=== PATIENT | female | born 1940 | race Caucasian/White ===

== ENCOUNTER 2016-11-25 06:14 | Observation (INO) ==
[2016-11-25] MEDS ORDERED: 0.9 % Sodium Chloride 1,000 ML IVC ONE ×2 (06:25→08:09)
[2016-11-25] MEDS ORDERED: Ondansetron 4 MG/2 ML VIAL IVP ONE (06:25)
[2016-11-25] MEDS ORDERED: *HR* HYDROmorphone (PF) 1 MG/ML SYRINGE IVP ONE (06:25)
--- NOTE | 2016-11-25 06:36 | Emergency Department Note ---
Disposition Clinical Impression: Right lower quadrant abdominal pain Disposition: Still a Patient Condition: Fair Referrals: Lanny Rogers, [employer] CL[employer] MANAGER [Primary Care Provider] - Forms: ED Satisfaction Letter, Work/School Release Abdominal Pain HPI - General Chief Complaint: ED Abdominal Pain Stated Complaint: abd pain Source: patient, EMS Mode of arrival: EMS Limitations: no limitations Nursing Notes Reviewed: Yes Vital Signs Reviewed: Yes - History of Present Illness HPI Narrative: 76-year-old female presents to the ED for acute severe right lower quadrant abdominal pain that began at around 4 AM. Onset was sudden and woke patient from sleep. Pain radiates into the back and has developed into a generalized abdominal pain. Is associated with nausea and dry heaves. No recent fever, no stool abnormalities including grossly bloody stool, melanoma, diarrhea. Patient states felt every bump on ambulance ride to ED. Denies dysuria, hematuria, chest pain, palpitations, SOA, or syncope. Surgical history negative for appendectomy. No history of renal stones. Pain Scale: 10 - Related Data Home Medications Medication Instructions Recorded Confirmed Aspirin 81 mg PO DAILY 12/19/15 12/19/15 Calcium Carbonate/Vitamin D3 1 tab PO DAILY 12/19/15 12/19/15 [Calcium 600-Vit D3 200 Tablet] Escitalopram [Lexapro] 10 mg PO DAILY 12/19/15 12/19/15 LORazepam [Ativan] 0.5 mg PO HS 12/19/15 12/19/15 Levothyroxine [Synthroid] 75 mcg PO DAILY 12/19/15 12/19/15 Lisinopril 2.5 mg PO DAILY 12/19/15 12/19/15 Metoprolol XL (24 HR) Succ [Toprol 50 mg PO DAILY 12/19/15 12/19/15 XL] Multivitamin [Multi-Day Vitamins] 1 tab PO DAILY 12/19/15 12/19/15 Ranitidine HCl [Acid Poultice Machine Operator] 150 mg PO DAILY 12/19/15 12/19/15 Ursodiol 300 mg PO TID 12/19/15 12/19/15 Allergies Allergy/AdvReac Type Severity Reaction Status Date / Time meperidine [From Demerol] Allergy Hallucinati Verified 11/22/14 10:59 ng acetaminophen [From Vicodin] AdvReac See Verified 11/22/14 10:59 Comments Amoxicillin [From Augmentin] AdvReac See Verified 11/22/14 10:59 Comments azithromycin AdvReac See Verified 11/22/14 10:59 Comments clavulanic acid AdvReac See Verified 11/22/14 10:59 [From Augmentin] Comments codeine AdvReac See Verified 11/22/14 10:59 Comments hydrocodone [From Vicodin] AdvReac See Verified 11/22/14 10:59 Comments sertraline [From Zoloft] AdvReac See Verified 11/22/14 10:59 Comments sulfamethoxazole AdvReac See Verified 11/22/14 10:59 [From Bactrim] Comments trimethoprim [From Bactrim] AdvReac See Verified 11/22/14 10:59 Comments All systems ED: reviewed and negative except as stated. Review of Systems: As Per HPI Abdominal Pain PMH - Past Medical History Medical history: Reports: non-contributory, cancer, hypertension, liver disease , thyroid disease Female Surgical History: Reports: hysterectomy, Tonsillectomy Psychiatric history: Reports: no psych history - Social History Smoking status: Former smoker Alcohol use: Reports: rarely Drug use: Reports: none Physical Exam Abdominal exam: grossly normal appearance, postive bowel sounds, generally tender with exquisite RLQ tenderness/guarding, positive rebound tenderness, no rigidity/distension. - General Limitations: no limitations General appearance: alert, in no apparent distress, in distress - Head Head exam: normocephalic - Eye Eye exam: Present: PERRL, EOMI. Absent: scleral icterus, conjunctival injection , miosis, mydriasis - ENT ENT exam: mucous membranes moist - Respiratory Respiratory exam: Present: normal lung sounds bilaterally - Cardiovascular Cardiovascular exam: Present: regular rate, normal rhythm, normal heart sounds - Extremities Exam Extremities exam: Absent: pedal edema - Neurological Exam Neurological exam: Present: alert, oriented X3 - Skin Skin exam: Present: warm, dry, normal color. Absent: cyanosis, diaphoresis, pallor, mottled Course Vital Signs Temperature 98.9 F 11/25/16 06:15 Pulse Rate 83 11/25/16 06:15 Respiratory Rate 16 11/25/16 06:15 Blood Pressure 150/103 11/25/16 06:15 O2 Sat by Pulse Oximetry 92 11/25/16 06:15 Temperature 98.9 F 11/25/16 06:15 Pulse Rate 83 11/25/16 06:15 Respiratory Rate 16 11/25/16 06:15 Blood Pressure 150/103 11/25/16 06:15 O2 Sat by Pulse Oximetry 94 11/25/16 06:21 Oxygen Delivery Oxygen Delivery Room Air Attestation Statement - Attestation Attestation: I, Rene Vee MD, personally evaluated this patient and discussed their management with the resident physician. I reviewed the resident's note and agree with the documented findings, medical decision making, and plan of care. 76-year-old female presents to the emergency department with a complaint that she awoke at 4 AM this morning with severe right lower quadrant abdominal pain. Nausea but no vomiting. No fever. No melena, hematemesis, or hematochezia. No hematuria or dysuria. No flank pain. Patient has had a hysterectomy in the past but still has her appendix and gallbladder. On examination patient is a well-developed well-nourished elderly female in no acute distress but does appear to be in moderate discomfort. She is alert and oriented 3. There is no cyanosis or diaphoresis. Breath sounds are clear and equal bilaterally. Heart regular rate and rhythm. Abdomen is soft with present bowel sounds. There is marked right lower quadrant abdominal tenderness on direct palpation with guarding and marked rebound tenderness. At shift change patient is being signed out to the oncoming dayshift physician, Dr. Sonia Rayo.
[2016-11-25 06:49] LABS: Alanine Aminotransferase 31 Units/L (0-55); Albumin 3.1 g/dL (3.5-5.0); Albumin/Globulin Ratio 0.9 (1.1-2.2); Alkaline Phosphatase 180 Units/L (38-126); Aspartate Amino Transferase 53 Units/L (5-34); BUN/Creatinine Ratio 25 (6-26); Bilirubin,Direct 0.4 mg/dL (0.0-0.5); Bilirubin,Indirect 0.4 mg/dL (0.0-1.2); Bilirubin,Total 0.8 mg/dL (0.2-1.2); Blood Urea Nitrogen 26 mg/dL (7-20); Calcium 9.1 mg/dL (8.6-10.8); Carbon Dioxide 24 mEq/L (19-29); Chloride 109 mEq/L (98-109); Globulin 3.5 g/dL (2.4-3.5); Glucose 106 mg/dL (70-99); Lipase 159 Units/L (8-78); Osmolality,Calculated 297 (280-300); Potassium 4.4 mEq/L (3.5-4.5); Sodium 141 mEq/L (136-145); Total Protein 6.6 g/dL (6.0-8.3); eGFR For African Americans > 60 (> 60); eGFR For Non-African Americans 51 (> 60)
[2016-11-25 06:53] LABS: Basophils % 0.5 %; Eosinophils # 0.3 K/mcL (0.0-0.6); Eosinophils % 7.1 %; Hematocrit 38.7 % (35.3-44.9); Hemoglobin 13.1 g/dL (11.5-15.4); Immature Granulocytes % 0.2 % (0-4); Lymphocytes # 0.8 K/mcL (0.6-4.6); Lymphocytes % 20.2 %; Mean Corpuscular HGB Conc 33.9 g/dL (31.6-35.5); Mean Corpuscular Hemoglobin 35.9 pg (28.0-33.3); Mean Platelet Volume 10.3 fL (9.4-12.4); Monocytes # 0.2 K/mcL (0.0-1.3); Monocytes % 3.6 %; Neutrophils # 2.8 K/mcL (1.6-8.9); Platelet Count 107 K/mcL (140-400); Red Blood Count 3.65 M/mcL (3.82-4.97); Red Cell Distribution Width 13.2 % (11.5-14.5); Segmented Neutrophils % 68.4 %
[2016-11-25 06:55] LABS: Bilirubin,Urine Negative (Negative); Blood,Urine Negative (Negative); Clarity,Urine Clear (Clear); Color,Urine Yellow (Yellow); Glucose,Urine (UA) Normal (Normal); Ketones,Urine Negative (Negative); Leukocyte Esterase,Urine Trace (Negative); Nitrite,Urine Negative (Negative); Protein,Urine Negative (Neg-Trace); Urobilinogen,Urine Normal (Normal)
[2016-11-25 06:58] LABS: Bacteria,Urine None Seen per hpf (None-Few); Hyaline Casts,Urine None Seen per lpf (None-Few); RBC,Urine 0-3 per hpf (0-3); Squamous Epithelial Cell,Urine None Seen per lpf (None-Few); WBC,Urine 0-3 per hpf (0-3)
[2016-11-25] MEDS ORDERED: MetroNIDAZOLE 500 MG/100 ML 500 MG/100 ML BAG IVPB ONE (08:04)
--- NOTE | 2016-11-25 08:05 | Emergency Department Note ---
Disposition Clinical Impression: Right lower quadrant abdominal pain Disposition: Still a Patient Condition: Fair Referrals: Lanny Rogers, PHOTOVOLTAIC PANEL INSTALLER [Primary Care Provider] - Forms: ED Satisfaction Letter, Work/School Release Abdominal Pain HPI - General Chief Complaint: ED Abdominal Pain Stated Complaint: abd pain Time Seen by Provider: 11/25/16 07:04 Source: patient, family Mode of arrival: EMS Limitations: no limitations Nursing Notes Reviewed: Yes Vital Signs Reviewed: Yes - History of Present Illness HPI Narrative: 76 year old female preesnts to the ED with complaitns of RLQ pain that started at 0400 today with dry heaves without vomitting and no fevers. 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 Patient states she has had a hysterectomy in the past but no other abdominal sugeries in the past. Kirill was seeen by the day team and they have concerns for appendicitis due to acute tenderenss in the RLQ of her abdmoinla that is sharp but not radiating. NO UTI sypmtos, She staes that she has been experinving diarhea type symptoms as well and that she has not been around any other person with similar symptoms and has not has increasd anitbiotic use in the reeently. Daughter at bedside is he main historian for patient. Upon my inital eval she is hypotensie although she was given dilaudid for pain therpy. Pain Scale: 10 - Related Data Home Medications Medication Instructions Recorded Confirmed Aspirin 81 mg PO DAILY 12/19/15 12/19/15 Calcium Carbonate/Vitamin D3 1 tab PO DAILY 12/19/15 12/19/15 [Calcium 600-Vit D3 200 Tablet] Escitalopram [Lexapro] 10 mg PO DAILY 12/19/15 12/19/15 LORazepam [Ativan] 0.5 mg PO HS 12/19/15 12/19/15 Levothyroxine [Synthroid] 75 mcg PO DAILY 12/19/15 12/19/15 Lisinopril 2.5 mg PO DAILY 12/19/15 12/19/15 Metoprolol XL (24 HR) Succ [Toprol 50 mg PO DAILY 12/19/15 12/19/15 XL] Multivitamin [Multi-Day Vitamins] 1 tab PO DAILY 12/19/15 12/19/15 Ranitidine HCl [Acid Veneer Stock Grader] 150 mg PO DAILY 12/19/15 12/19/15 Ursodiol 300 mg PO TID 12/19/15 12/19/15 Allergies Allergy/AdvReac Type Severity Reaction Status Date / Time meperidine [From Demerol] Allergy Hallucinati Verified 11/22/14 10:59 ng acetaminophen [From Vicodin] AdvReac See Verified 11/22/14 10:59 Comments Amoxicillin [From Augmentin] AdvReac See Verified 11/22/14 10:59 Comments azithromycin AdvReac See Verified 11/22/14 10:59 Comments clavulanic acid AdvReac See Verified 11/22/14 10:59 [From Augmentin] Comments codeine AdvReac See Verified 11/22/14 10:59 Comments hydrocodone [From Vicodin] AdvReac See Verified 11/22/14 10:59 Comments sertraline [From Zoloft] AdvReac See Verified 11/22/14 10:59 Comments sulfamethoxazole AdvReac See Verified 11/22/14 10:59 [From Bactrim] Comments trimethoprim [From Bactrim] AdvReac See Verified 11/22/14 10:59 Comments Constitutional: Denies: fever, chills, weakness, weight change Eyes: Denies: eye pain, eye discharge, vision change ENT ED: Denies: ear pain, throat pain, dental pain, hearing loss, epistaxis, congestion, dysphagia Cardiovascular: Denies: chest pain, palpitations, dyspnea on exertion, edema, syncope Respiratory: Denies: cough, dyspnea, wheezes, hemoptysis, stridor Gastrointestinal: Reports: abdominal pain, nausea. Denies: vomiting, diarrhea, constipation, hematemesis, melena, hematochezia Genitourinary: Denies: dysuria, frequency, hematuria, discharge Musculoskeletal: Denies: back pain, neck pain, arthralgia, myalgia Integumentary: Denies: rash, abrasion, lesions Neurological: Denies: headache, weakness, numbness, paresthesias, confusion, abnormal gait, vertigo Psychiatric: Denies: anxiety, depression, suicidal thoughts, homicidal thoughts , auditory hallucinations, visual hallucinations Endocrine: Denies: fatigue Hematological/Lymphatic: Denies: easy bleeding, easy bruising Allergic/Immunologic: Denies: facial swelling, urticaria Abdominal Pain PMH - Past Medical History Medical history: Reports: non-contributory, cancer, hypertension, liver disease , thyroid disease Female Surgical History: Reports: hysterectomy, Tonsillectomy Psychiatric history: Reports: no psych history - Social History Smoking status: Former smoker Alcohol use: Reports: rarely Drug use: Reports: none Physical Exam - General Limitations: no limitations General appearance: alert, in no apparent distress, in distress - Head Head exam: atraumatic, normocephalic, normal inspection - Eye Eye exam: Present: normal appearance, PERRL, EOMI - Expanded Eye Exam Pupils: Left: reactive - ENT ENT exam: normal exam, normal oropharynx, mucous membranes moist - Expanded ENT Exam External ear exam: Present: normal external inspection Mouth exam: Present: normal external inspection Teeth exam: Present: normal inspection Throat exam: Present: normal inspection - Neck Neck exam: Present: normal inspection, full ROM, trachea midline - Chest Chest inspection: Present: normal inspection, symmetric chest wall rise - Respiratory Respiratory exam: Present: normal lung sounds bilaterally - Cardiovascular Cardiovascular exam: Present: regular rate, normal rhythm, normal heart sounds - Abdominal Exam Abdominal exam: Present: soft, tenderness, normal bowel sounds, tenderness at McBurney's Point. Absent: Non-Tender, distention, guarding, rebound, rigidity, Avalos's sign, Rovsing's sign, mass, pulsatile mass, hernia Abdominal tenderness: Present: RLQ, moderate - Extremities Exam Extremities exam: Present: normal inspection, full ROM. Absent: tenderness, pedal edema - Expanded Upper Extremity Exam Shoulder exam: Present: normal inspection, full ROM Arm exam: Present: normal inspection, full ROM Elbow exam: Present: normal inspection, full ROM Forearm/Wrist exam: Present: normal inspection, full ROM Hand exam: Present: normal inspection, full ROM Vascular exam: Normal: capillary refill, radial pulse - Expanded Lower Extremity Exam Hip/Pelvis exam: Present: normal inspection, full ROM Upper leg exam: Present: normal inspection, full ROM Knee exam: Present: normal inspection, full ROM Lower leg exam: Present: normal inspection, full ROM Ankle exam: Present: normal inspection, full ROM Foot/toe exam: Present: normal inspection, full ROM Neurovascular/Tendon exam: Absent: motor deficit, sensory deficit, tendon deficit - Back Exam Back exam: Present: normal inspection, full ROM. Absent: tenderness - Neurological Exam Neurological exam: Present: alert, oriented X3 - Expanded Neurological Exam Patient oriented to: Present: person, place, time Coma Scale Eye Opening: Spontaneous Coma Scale Motor Response: Obeys Commands Coma Scale Verbal Response: Oriented Coma Scale Total: 15 - Psychiatric Psychiatric exam: Present: normal affect, normal mood - Skin Skin exam: Present: warm, dry, intact, normal color Course Course Narrative: accepted sign out from Dr. Vee, plan is to followup on ABCT for rule out appendicitis. - Reevaluation(s) Reevaluation #1: ABCT ruled out appendicitis although there is question for gabladder wall thickening and elevated LFts, in the picture of primary biliary cirrhosis, we will need to rule out acute avelino. She also has colitis. WE will obtain a gabladder ultrsound and treat with flagyl at this time. Time: 08:04 Vital Signs Temperature 98.9 F 11/25/16 06:15 Pulse Rate 83 11/25/16 06:15 Respiratory Rate 16 11/25/16 06:15 Blood Pressure 150/103 11/25/16 06:15 O2 Sat by Pulse Oximetry 92 11/25/16 06:15 Temperature 98.9 F 11/25/16 06:15 Pulse Rate 78 11/25/16 07:43 Respiratory Rate 12 11/25/16 07:43 Blood Pressure 97/48 11/25/16 07:43 O2 Sat by Pulse Oximetry 95 11/25/16 07:43 Oxygen Delivery Oxygen Delivery Room Air Abdominal Pain - Medical Records Medical records reviewed: Yes I reviewed the patient's medical records. - Lab Data Lab results reviewed: Yes I reviewed the patient's lab results. Result diagrams: 11/25/16 06:28 11/25/16 06:28 Lab Results 11/25/16 11/25/16 11/25/16 Range/Units 06:28 06:28 06:28 WBC 4.1 L (4.3-11.1) K/mcL RBC 3.65 L (3.82-4.97) M/mcL Hgb 13.1 (11.5-15.4) g/dL Hct 38.7 (35.3-44.9) % MCV 106.0 H (83.0-100.0) fL MCH 35.9 H (28.0-33.3) pg MCHC 33.9 (31.6-35.5) g/dL RDW 13.2 (11.5-14.5) % Plt Count 107 L (140-400) K/mcL MPV 10.3 (9.4-12.4) fL Immature Gran % 0.2 (0-4) % Seg Neutrophils % 68.4 % Lymphocytes % 20.2 % Monocytes % 3.6 % Eosinophils % 7.1 % Basophils % 0.5 % Neutrophils # 2.8 (1.6-8.9) K/mcL Lymphocytes # 0.8 (0.6-4.6) K/mcL Monocytes # 0.2 (0.0-1.3) K/mcL Eosinophils # 0.3 (0.0-0.6) K/mcL Basophils # 0.0 (0.0-0.2) K/mcL Sodium 141 (136-145) mEq/L Potassium 4.4 (3.5-4.5) mEq/L Chloride 109 (98-109) mEq/L Carbon Dioxide 24 (19-29) mEq/L BUN 26 H (7-20) mg/dL Creatinine 1.05 (0.57-1.11) mg/dL Est GFR ( Amer) > 60 (> 60) Est GFR (Non-Af Amer) 51 L (> 60) BUN/Creatinine Ratio 25 (6-26) Glucose 106 H (70-99) mg/dL Calculated Osmolality 297 (280-300) Lactic Acid 1.1 (0.5-2.2) mmol/L Calcium 9.1 (8.6-10.8) mg/dL Total Bilirubin 0.8 (0.2-1.2) mg/dL Direct Bilirubin 0.4 (0.0-0.5) mg/dL Indirect Bilirubin 0.4 (0.0-1.2) mg/dL AST 53 H (5-34) Units/L ALT 31 (0-55) Units/L Alkaline Phosphatase 180 H (38-126) Units/L Serum Total Protein 6.6 (6.0-8.3) g/dL Albumin 3.1 L (3.5-5.0) g/dL Globulin 3.5 (2.4-3.5) g/dL Albumin/Globulin Ratio 0.9 L (1.1-2.2) Lipase 159 H (8-78) Units/L Urine Color (Yellow) Urine Clarity (Clear) Urine pH (5.0-8.0) pH Units Ur Specific [place] (1.010-1.025) Urine Protein (Neg-Trace) mg/dL Urine Glucose (UA) (Normal) mg/dL Urine Ketones (Negative) mg/dL Urine Blood (Negative) Urine Nitrite (Negative) Urine Bilirubin (Negative) Urine Urobilinogen (Normal) mg/dL Ur Leukocyte Esterase (Negative) Urine Microscopic RBC (0-3) per hpf Urine Microscopic WBC (0-3) per hpf Ur Squamous Epith Cells (None-Few) per lpf Urine Bacteria (None-Few) per hpf Hyaline Casts (None-Few) per lpf Ur Culture Indicated? (NO) 11/25/16 Range/Units 06:45 WBC (4.3-11.1) K/mcL RBC (3.82-4.97) M/mcL Hgb (11.5-15.4) g/dL Hct (35.3-44.9) % MCV (83.0-100.0) fL MCH (28.0-33.3) pg MCHC (31.6-35.5) g/dL RDW (11.5-14.5) % Plt Count (140-400) K/mcL MPV (9.4-12.4) fL Immature Gran % (0-4) % Seg Neutrophils % % Lymphocytes % % Monocytes % % Eosinophils % % Basophils % % Neutrophils # (1.6-8.9) K/mcL Lymphocytes # (0.6-4.6) K/mcL Monocytes # (0.0-1.3) K/mcL Eosinophils # (0.0-0.6) K/mcL Basophils # (0.0-0.2) K/mcL Sodium (136-145) mEq/L Potassium (3.5-4.5) mEq/L Chloride (98-109) mEq/L Carbon Dioxide (19-29) mEq/L BUN (7-20) mg/dL Creatinine (0.57-1.11) mg/dL Est GFR ( Amer) (> 60) Est GFR (Non-Af Amer) (> 60) BUN/Creatinine Ratio (6-26) Glucose (70-99) mg/dL Calculated Osmolality (280-300) Lactic Acid (0.5-2.2) mmol/L Calcium (8.6-10.8) mg/dL Total Bilirubin (0.2-1.2) mg/dL Direct Bilirubin (0.0-0.5) mg/dL Indirect Bilirubin (0.0-1.2) mg/dL AST (5-34) Units/L ALT (0-55) Units/L Alkaline Phosphatase (38-126) Units/L Serum Total Protein (6.0-8.3) g/dL Albumin (3.5-5.0) g/dL Globulin (2.4-3.5) g/dL Albumin/Globulin Ratio (1.1-2.2) Lipase (8-78) Units/L Urine Color Yellow (Yellow) Urine Clarity Clear (Clear) Urine pH 6.0 (5.0-8.0) pH Units Ur Specific [place] 1.020 (1.010-1.025) Urine Protein Negative (Neg-Trace) mg/dL Urine Glucose (UA) Normal (Normal) mg/dL Urine Ketones Negative (Negative) mg/dL Urine Blood Negative (Negative) Urine Nitrite Negative (Negative) Urine Bilirubin Negative (Negative) Urine Urobilinogen Normal (Normal) mg/dL Ur Leukocyte Esterase Trace H (Negative) Urine Microscopic RBC 0-3 (0-3) per hpf Urine Microscopic WBC 0-3 (0-3) per hpf Ur Squamous Epith Cells None Seen (None-Few) per lpf Urine Bacteria None Seen (None-Few) per hpf Hyaline Casts None Seen (None-Few) per lpf Ur Culture Indicated? YES A (NO) - Radiology Data Radiology results reviewed: Yes I reviewed the patient's radiology results. - EKG Data EKG attestation: Yes I reviewed and interpreted this EKG. EKG results narrative: NSR with rate of 70. NO STEMI. normal intervals. no change from11/09/13. 0634
--- NOTE | 2016-11-25 10:11 | Internal Med History&Physical ---
Date of Encounter: 11/25/16 Time of Encounter: 10:08 Assessment and Plan (1) Acute colitis Current visit: Yes Status: Acute Sudden onset right lower quadrant pain and CT findings support the diagnosis of acute colitis. Etiology could be infectious, ischemic versus inflammatory. Lactic acid within normal range goes against ischemic etiology. We will treat a patient with Levaquin and Flagyl for infectious colitis. We will consult GI. (2) Primary biliary cirrhosis Current visit: Yes Status: Acute Monitor LFTs. Avoid hepatotoxic medication. (3) Essential hypertension Current visit: Yes Status: Acute Continue lisinopril. (4) Hypothyroidism Current visit: Yes Status: Acute Continue home dose of levothyroxine. Qualifiers: Hypothyroidism type: acquired Qualified Code(s): E03.9 - Hypothyroidism, unspecified (5) DVT prophylaxis Current visit: Yes Status: Acute I will hold off anticoagulation due to thrombocytopenia with platelet count of 107 and increased bleeding risk. We will use SCDs at rest and encourage early ambulation. (6) Right lower quadrant abdominal pain Current visit: Yes Status: Acute Abdominal pain secondary to acute colitis. We will treat this with IV Dilaudid. We will treat nausea with IV Zofran. Nothing by mouth for now. She is at high risk for morbidity, mortality and complications due to treatment with IV controlled substances. Internal Medicine - H&P: HPI Chief complaint: Abdominal pain Admitted From: Emergency Dept Plans for Post Hospital Care: Home History of present illness: Ms. Roy is a 76 year old female with past medical history significant for hypertension, depression and primary biliary cirrhosis who is being evaluated for abdominal pain. She was in her usual state of health until early this morning when she woke up at 4 AM with severe lower abdominal pain that soon localized to the right lower quadrant, described as 9-10/10 in intensity, sharp , on and off, lasting about 1 minute with periods of 15 minutes in between bouts , associated with nausea. She had a normal bowel movement no hematochezia. Denies associated fever and chills. A 10 point review of systems was negative except as above. Past medical history as above, additionally positive for breast cancer status post bilateral mastectomy and hypothyroidism. Family history: Positive for biliary cirrhosis and the patient's mother and colon cancer in the patient's father. Social history: Former smoker, quit 25 years ago, denies alcohol abuse, denies recreational drug use. Past Med Surg Social Fam HX - Past Medical History Medical history: non-contributory, cancer, hypertension, liver disease, thyroid disease Psychiatric history: no psych history - Past Surgical History Surgical History: breast surgery, cataract, hysterectomy - Social History Smoking Status: Former smoker Smokeless Tobacco Status: No Alcohol use: rarely Drug use: none Internal Medicine - H&P: Meds Aspirin 81 mg PO DAILY 12/19/15 [History] Calcium Carbonate/Vitamin D3 [Calcium 600-Vit D3 200 Tablet] 1 tab PO DAILY 09/25 [History] Escitalopram [Lexapro] 15 mg PO DAILY 12/19/15 [History] LORazepam [Ativan] 0.5 mg PO HS 12/19/15 [History] Levothyroxine [Synthroid] 75 mcg PO DAILY 12/19/15 [History] Lisinopril 2.5 mg PO DAILY 12/19/15 [History] Metoprolol XL (24 HR) Succ [Toprol XL] 50 mg PO DAILY 12/19/15 [History] Multivitamin [Multi-Day Vitamins] 1 tab PO DAILY 12/19/15 [History] Ranitidine HCl [Acid Hydrometer Finisher] 150 mg PO DAILY 12/19/15 [History] Ursodiol 300 mg PO TID 12/19/15 [History] 3 Allergy/AdvReac Type Severity Reaction Status Date / Time meperidine [From Demerol] Allergy Hallucinati Verified 11/22/14 10:59 ng acetaminophen [From Vicodin] AdvReac See Verified 11/22/14 10:59 Comments Amoxicillin [From Augmentin] AdvReac See Verified 11/22/14 10:59 Comments azithromycin AdvReac See Verified 11/22/14 10:59 Comments clavulanic acid AdvReac See Verified 11/22/14 10:59 [From Augmentin] Comments codeine AdvReac See Verified 11/22/14 10:59 Comments hydrocodone [From Vicodin] AdvReac See Verified 11/22/14 10:59 Comments sertraline [From Zoloft] AdvReac See Verified 11/22/14 10:59 Comments sulfamethoxazole AdvReac See Verified 11/22/14 10:59 [From Bactrim] Comments trimethoprim [From Bactrim] AdvReac See Verified 11/22/14 10:59 Comments All Systems PM: A 10-system review of systems was performed and is negative for pertinent findings except as documented above in the HPI. - Constitutional Vitals: Temp Pulse Resp BP Pulse Ox 98.9 F 70 13 98/57 95 11/25/16 06:15 11/25/16 09:24 11/25/16 09:24 11/25/16 09:24 11/25/16 09:24 General appearance: Present: A&O X 3, no acute distress - Eye Eye exam: Present: PERRL, conjuntiva pink, sclera anicteric Pupils: Present: PERRL - Respiratory Respiratory exam: Present: CTAB. Absent: accessory muscle use, rales, rhonchi, wheezes - Cardiovascular Cardiovascular exam: Present: RRR, +S1, +S2. Absent: diastolic murmur, gallop, rubs, systolic murmur - GI/Abdominal GI/Abdominal exam: Present: normal bowel sounds, soft, tenderness (Tender to palpation in the right lower quadrant with positive rebound tenderness, no guarding), no peritoneal signs. Absent: distended - Extremities Exam Extremities exam: Present: warm, radial pulses palpable and symmetrical. Absent : calf tenderness, cyanotic, pedal edema - Neurological Exam Neurological exam: Present: CN II-XII intact, oriented X3, no focal deficits. Absent: pronater drift, facial droop, speech deficit - Skin Skin exam: Present: dry, intact Internal Med - H&P Results - Labs CBC & Chem 7: 11/25/16 06:28 11/25/16 06:28 Labs: Short CBC 11/25/16 Range/Units 06:28 WBC 4.1 L (4.3-11.1) K/mcL Hgb 13.1 (11.5-15.4) g/dL Hct 38.7 (35.3-44.9) % Plt Count 107 L (140-400) K/mcL Neutrophils # 2.8 (1.6-8.9) K/mcL BMP 11/25/16 06:28 Sodium 141 Potassium 4.4 Chloride 109 Carbon Dioxide 24 BUN 26 H Creatinine 1.05 Glucose 106 H Calcium 9.1 Liver Function 11/25/16 Range/Units 06:28 Total Bilirubin 0.8 (0.2-1.2) mg/dL Direct Bilirubin 0.4 (0.0-0.5) mg/dL AST 53 H (5-34) Units/L ALT 31 (0-55) Units/L Alkaline Phosphatase 180 H (38-126) Units/L Albumin 3.1 L (3.5-5.0) g/dL Urine 11/25/16 Range/Units 06:45 Urine Color Yellow (Yellow) Urine Clarity Clear (Clear) Urine pH 6.0 (5.0-8.0) pH Units Ur Specific [place] 1.020 (1.010-1.025) Urine Protein Negative (Neg-Trace) mg/dL Urine Glucose (UA) Normal (Normal) mg/dL - Impressions ITS Impressions Abdomen/Pelvis CT 11/25/16 06:31 IMPRESSION: 1. Cirrhotic liver, consistent with the history of primary biliary cirrhosis. No suspicious focal liver lesions are identified. 2. Suspected portal hypertension given venous collaterals and trace ascites. 3. Suspected edematous wall thickening involving portions of the small bowel and colon suggestive of portal enteropathy and colopathy, respectively. Superimposed enteritis and/or colitis are not excluded. 4. Stranding adjacent to the otherwise normal appendix, most likely related to edema noted elsewhere in the mesenteries. 5. Cholelithiasis. Mild gallbladder distention and diffuse edematous gallbladder wall thickening could be related to cholecystitis, the findings are more likely related to liver disease, ascites, or a systemic process such as hypoproteinemia. Consider further evaluation with sonography or a nuclear medicine hepatobiliary scan if there are clinical findings of cholecystitis. 6. Moderate right pleural effusion. D/ / Nelson Decker MD / Nelson Decker MD Interpreting Provider: Nelson Decker MD Gallbladder Ultrasound 11/25/16 07:59 IMPRESSION: 1. No evidence of cholelithiasis or bile duct dilatation 2. Hepatic cirrhosis, with trace ascites in the right upper quadrant and right pleural effusion D/ / 11/25/2016 09:07:12 Akshat Thomas MD / [facility] Interpreting Provider: MD Bonilla Alvarez MD: I have personally reviewed this CAT scan. My findings: Moderate right pleural effusion. Nodular liver. No small bowel or colonic obstruction. Mild terminal ileum, ascending colon and cecal wall edema. Dilated gallbladder.
[2016-11-25] MEDS ORDERED: *HR* Propofol 200 MG/20 ML VIAL IVP ONE (10:33)
[2016-11-25] MEDS ORDERED: *HR* Metoprolol 5 MG/5 ML VIAL IVP ONE (10:33)
[2016-11-25] MEDS ORDERED: *HR* HYDROmorphone (PF) 1 MG/ML SYRINGE IVP PRN (10:55)
[2016-11-25] MEDS ORDERED: Naloxone 0.4 MG/ML INJ IVP PRN (10:55)
--- NOTE | 2016-11-25 11:05 | Internal Med Progress Note ---
Date of Encounter: 11/25/16 - Assessment and plan (1) Acute colitis Current Visit: Yes Status: Acute (2) Primary biliary cirrhosis Current Visit: Yes Status: Acute (3) Essential hypertension Current Visit: Yes Status: Acute (4) Hypothyroidism Current Visit: Yes Status: Acute Qualifiers: Hypothyroidism type: acquired Qualified Code(s): E03.9 - Hypothyroidism, unspecified (5) DVT prophylaxis Current Visit: Yes Status: Acute (6) Right lower quadrant abdominal pain Current Visit: Yes Status: Acute - Constitutional Vitals: Temp Pulse Resp BP Pulse Ox 98.9 F 69 14 106/48 95 11/25/16 06:15 11/25/16 10:14 11/25/16 10:14 11/25/16 10:14 11/25/16 10:14 General appearance: Present: A&O X 3, no acute distress Internal Medicine: Result - Labs CBC & Chem 7: 11/25/16 06:28 11/25/16 06:28 Consult Discharge Plan - Plan Referrals: Lanny Rogers, AUTOMOBILE CONTRACT CLERK [Primary Care Provider] -
[2016-11-25] MEDS: Levofloxacin 750 MG/150 ML 750 MG/150 ML BAG IVPB SCH (13:01)
[2016-11-25] MEDS: 0.9 % Sodium Chloride 1,000 ML IVC SCH (13:04)
[2016-11-25] MEDS: Famotidine 20 MG/2 ML VIAL IVP SCH ×2 (13:04→19:22)
[2016-11-25] MEDS: Aspirin 81 MG TAB.CHEW PO SCH (13:05)
[2016-11-25] MEDS: MetroNIDAZOLE 500 MG/100 ML 500 MG/100 ML BAG IVPB SCH (15:56)
--- NOTE | 2016-11-25 16:07 | Gastroenterology Consult Note ---
<Isabel Gonzales - Last Filed: 11/25/16 15:58> Date of Encounter: 11/25/16 Time of Encounter: 15:59 - Assessment and plan (1) Acute colitis Current Visit: Yes Status: Acute Assessment and plan: CT abdomen and pelvis reviewed with radiology- evidence of terminal small bowel inflammation, no evidence of appendicitis WBC normal Lactic acid normal Given no history of diarrhea or blood in stool, do not believe would be consideration of an inflammatory bowel disease Believe cause of colitis likey to be either viral or bacterial Would recommend treatment with cipro and flagyl Would not recommend colonoscopy at this time. Would expect symptoms to improve as clinical picture improves. - Time Spent With Patient Total time spent is greater than 50% in coordination of care (as documented) at patient's floor/unit and/or counseling patient: GI History of Present Illness - Data of Consult Patient: known to practice within the last 3 years Requesting Physician: Vanessa Pederson CNP - Consult Narrative Reason for consult: colitis History of present illness: Ms. Roy is a 76 year old female who is being seen in consult for colitis. She states that she was feleing fine when she went to bed last night and then she woke up this morning at 4 am with sudden onset abdominal pain. She located this pain in her right lower quadrant She states that initially she would have episodes of every 20-30 minutes of sharp pain which would then resolve back to a dull ache. Since arriving she has received both pain medication and antibiotics, she states the pain is still there but is now more of a dull ache and she feels bloated. She states that she has never had anything like this happen to her before. She says that the pain stays in one spot and does not radiate anywhere. She does reports getting waves of nausea with no episodes of vomiting. She denies any diarrhea or blood in stool. She reports a colonoscopy 2 years ago which was normal She denies any history of irregular heart rate or atrial fibrillation. She does not have anyone else in her family who is ill. She deneis any recent travel. No other concerns or complaints at this time. Past Med Surg Social Fam HX - Past Medical History Medical history: cancer, hypertension, liver disease, thyroid disease Psychiatric history: no psych history - Past Surgical History Surgical History: breast surgery, cataract, hysterectomy - Social History Smoking Status: Former smoker Smokeless Tobacco Status: No Alcohol use: rarely Drug use: none - Family History Father Hx Family Cancer: Yes Mother Hx Family GI Disorders: Yes (liver disease) - Gastrointestinal Gastrointestinal: Present: abdominal pain (right lower quadrant ), nausea. Absent: diarrhea, heartburn, vomiting - Constitutional Constitutional: no fever(s) - EENT Ears: Absent: ear pain Nose, mouth and throat: Absent: dysphagia, hoarseness - Cardiovascular Cardiovascular ROS: Absent: irregular heart rhythm, palpitations - Respiratory Respiratory IM: Absent: cough, dyspnea - Genitourinary Genitourinary: Absent: Urinary frequency - Neurological ROS Neurological GI: Absent: confusion - Hematologic/Lymphatic Hematologic/Lymphatic pediatric: Absent: easy bleeding - Musculoskeletal Musculoskeletal ROS GI: Absent: back pain - Integumentary Integumentary GI: Absent: jaundice, rash - Constitutional Vitals: Temp Pulse Resp BP Pulse Ox 97.6 F 76 14 94/51 92 11/25/16 15:49 11/25/16 15:49 11/25/16 15:49 11/25/16 15:49 11/25/16 15:49 General appearance: Present: cooperative, A&O X 3, pleasant, no acute distress, answers questions appropriately - Head Head exam: Present: atraumatic, normocephalic - Eye Eye exam: Present: normal appearance, sclera anicteric - ENT ENT exam: Present: mucous membranes moist - Neck Neck exam general surgery: Present: supple, trachea midline - Respiratory Respiratory exam: Present: CTAB. Absent: rales, rhonchi, stridor, wheezes - Cardiovascular Cardiovascular exam: Present: RRR, +S1, +S2. Absent: diastolic murmur, systolic murmur - GI/Abdominal GI/Abdominal exam: Present: hypoactive bowel sounds, soft, tenderness (right lower quadrant ). Absent: distended, guarding, rebound, rigid - Extremities Exam Extremities exam: Present: normal capillary refill, warm - Skin Skin exam: Present: dry, intact, warm Results - Labs CBC & Chem 7: 11/25/16 06:28 11/25/16 06:28 Labs: Last Result Calcium 9.1 mg/dL (8.6-10.8) 11/25/16 06:28 Entire Visit Hgb 13.1 g/dL (11.5-15.4) 11/25/16 06:28 Hct 38.7 % (35.3-44.9) 11/25/16 06:28 Total Bilirubin 0.8 mg/dL (0.2-1.2) 11/25/16 06:28 AST 53 Units/L (5-34) H 11/25/16 06:28 ALT 31 Units/L (0-55) 11/25/16 06:28 Lipase 159 Units/L (8-78) H 11/25/16 06:28 Consult Discharge Plan - Plan Referrals: Lanny Rogers, AMAN [Primary Care Provider] - <Karine Figueroa - Last Filed: 11/25/16 21:56> Date of Encounter: 11/25/16 Time of Encounter: 15:00 - Time Spent With Patient Total time spent is greater than 50% in coordination of care (as documented) at patient's floor/unit and/or counseling patient: GI History of Present Illness - Data of Consult Requesting Physician: Vanessa Pederson CNP - Consult Narrative History of present illness: Ms. Roy is a 76 year old female - Constitutional Vitals: Temp Pulse Resp BP Pulse Ox 98.0 F 80 16 105/61 93 11/25/16 18:45 11/25/16 18:45 11/25/16 18:45 11/25/16 18:45 11/25/16 18:45 Results - Labs CBC & Chem 7: 11/25/16 06:28 11/25/16 06:28 Labs: Last Result Calcium 9.1 mg/dL (8.6-10.8) 11/25/16 06:28 Entire Visit Hgb 13.1 g/dL (11.5-15.4) 11/25/16 06:28 Hct 38.7 % (35.3-44.9) 11/25/16 06:28 Total Bilirubin 0.8 mg/dL (0.2-1.2) 11/25/16 06:28 AST 53 Units/L (5-34) H 11/25/16 06:28 ALT 31 Units/L (0-55) 11/25/16 06:28 Lipase 159 Units/L (8-78) H 11/25/16 06:28 - Attending Attestation I examined this patient and my medical decision-making was reviewed with the Resident Physician. I agree with the documented findings, disposition and treatment plan as described except to the extent set forth below. pt with acute onset of abd pain with terminal elitis. Lactic acid normal.CT with no vascular compromise or clot.
[2016-11-25] MEDS: Ondansetron 4 MG/2 ML VIAL IVP PRN (16:14)
[2016-11-25] MEDS: *HR* LORazepam 0.5 MG TABLET PO SCH (21:58)
[2016-11-26] MEDS: MetroNIDAZOLE 500 MG/100 ML 500 MG/100 ML BAG IVPB SCH ×4 (00:20→23:40)
[2016-11-26 05:53] LABS: Basophils % 0.4 %; Eosinophils # 0.1 K/mcL (0.0-0.6); Eosinophils % 2.3 %; Hematocrit 33.7 % (35.3-44.9); Immature Granulocytes % 0.2 % (0-4); Lymphocytes # 1.1 K/mcL (0.6-4.6); Lymphocytes % 22.9 %; Mean Corpuscular HGB Conc 33.8 g/dL (31.6-35.5); Mean Corpuscular Hemoglobin 35.6 pg (28.0-33.3); Mean Corpuscular Volume 105.3 fL (83.0-100.0); Mean Platelet Volume 10.8 fL (9.4-12.4); Monocytes # 0.5 K/mcL (0.0-1.3); Neutrophils # 3.1 K/mcL (1.6-8.9); Red Cell Distribution Width 13.6 % (11.5-14.5); Segmented Neutrophils % 64.2 %
[2016-11-26 05:54] LABS: Hemoglobin 11.4 g/dL (11.5-15.4); Platelet Count 62 K/mcL (140-400)
[2016-11-26 06:12] LABS: BUN/Creatinine Ratio 20 (6-26); Blood Urea Nitrogen 16 mg/dL (7-20); Carbon Dioxide 20 mEq/L (19-29); Chloride 112 mEq/L (98-109); Glucose 83 mg/dL (70-99); Magnesium 1.6 mg/dL (1.6-2.6); Osmolality,Calculated 288 (280-300); Potassium 3.7 mEq/L (3.5-4.5); Sodium 139 mEq/L (136-145); eGFR For African Americans > 60 (> 60); eGFR For Non-African Americans > 60 (> 60)
[2016-11-26] MEDS: Famotidine 20 MG/2 ML VIAL IVP SCH ×2 (06:16→18:32)
[2016-11-26] MEDS: 0.9 % Sodium Chloride 1,000 ML IVC SCH (06:18)
[2016-11-26] MEDS: Aspirin 81 MG TAB.CHEW PO SCH ×2 (08:52→16:00)
[2016-11-26] MEDS: Metoprolol XL (24 HR) Succ 50 MG TAB.ER.24H PO SCH ×2 (08:53→16:00)
--- NOTE | 2016-11-26 12:05 | Internal Med Progress Note ---
Date of Encounter: 11/26/16 Time of Encounter: 12:05 - Assessment and plan (1) Acute colitis Current Visit: Yes Status: Acute Assessment and plan: Continue antibiotics Patient is able to tolerate clear liquids, she stated GI has held her feeds for EGD this a.m, will defer feeding to GI for now (2) Primary biliary cirrhosis Current Visit: Yes Status: Chronic Assessment and plan: Chronic , with portal HTN, for EGD today, no evidence of bleeding, patient is hemodynamically stable, Hb is stable, stool is yellow (3) Essential hypertension Current Visit: Yes Status: Chronic Assessment and plan: Controlled, continue home meds (4) Hypothyroidism Current Visit: Yes Status: Chronic Assessment and plan: Continue home meds Qualifiers: Hypothyroidism type: acquired Qualified Code(s): E03.9 - Hypothyroidism, unspecified (5) DVT prophylaxis Current Visit: Yes Status: Acute Assessment and plan: Heparin (6) Esophageal varices Current Visit: Yes Status: Chronic Assessment and plan: secondary to portal HTN For EGD today Qualifiers: Esophageal varices type: secondary Esophageal varices bleeding: without bleeding Qualified Code(s): I85.10 - Secondary esophageal varices without bleeding - Subjective Interval history: Seen and evaluated at bedside Admitted to observation for colitis and enteritis She has a PMH of PBC with Grade I varices, portal HTN, Hypothyroidism and HTN She is pending EGD today, hemodynamically stable, labs are stable - Constitutional Vitals: Temp Pulse Resp BP Pulse Ox 97.8 F 78 16 110/61 94 11/26/16 11:18 11/26/16 11:18 11/26/16 11:18 11/26/16 11:18 11/26/16 11:18 General appearance: Present: A&O X 3, pleasant, no acute distress - Head Head exam: Present: atraumatic, normocephalic - Eye Eye exam: Present: PERRL, conjuntiva pink, sclera anicteric Pupils: Present: PERRL - Neck Neck exam general surgery: Present: supple, trachea midline. Absent: lymphadenopathy - Respiratory Respiratory exam: Present: CTAB. Absent: accessory muscle use, rales, rhonchi, wheezes - Cardiovascular Cardiovascular exam: Present: RRR, +S1, +S2. Absent: diastolic murmur, gallop, rubs, systolic murmur - GI/Abdominal GI/Abdominal exam: Present: normal bowel sounds, soft, no peritoneal signs. Absent: distended, tenderness - Extremities Exam Extremities exam: Present: warm, radial pulses palpable and symmetrical. Absent : calf tenderness, cyanotic, pedal edema - Neurological Exam Neurological exam: Present: alert, CN II-XII intact, oriented X3, no focal deficits. Absent: pronater drift, facial droop, speech deficit - Skin Skin exam: Present: dry, intact Internal Medicine: Result - Labs CBC & Chem 7: 11/26/16 04:53 11/26/16 04:53 Labs: Short CBC 11/26/16 Range/Units 04:53 WBC 4.8 (4.3-11.1) K/mcL Hgb 11.4 L D (11.5-15.4) g/dL Hct 33.7 L (35.3-44.9) % Plt Count 62 L (140-400) K/mcL Neutrophils # 3.1 (1.6-8.9) K/mcL BMP 11/26/16 04:53 Sodium 139 Potassium 3.7 Chloride 112 H Carbon Dioxide 20 BUN 16 D Creatinine 0.80 Glucose 83 Calcium 8.0 L - VTE Documentation of Mechanical Device: Intermittent pneumatic compression device Consult Discharge Plan - Plan Referrals: Lanny Rogers, HOG COOLER [Primary Care Provider] -
--- NOTE | 2016-11-26 12:55 | Anesthesia Evaluation PreOp ---
Date of Encounter: 11/26/16 Time of Encounter: 12:51 - Past History Planned Operation: EGD Cardiac History: HTN Pulmonary History: Former smoker (quit 25 years ago) BORDEREAU CLERK History: Denies Any Significant HX Other Medical History: Hepatic (Primary biliary cirrhosis), Thyroid (Hypothyroid ) Anesthesia History: No Prior Anesthetic Complications, Past Anesthesia (Breast sx,GEGE) : No Alcohol Use: rarely Drug use: none Medications and Allergies Aspirin 81 mg PO DAILY 12/19/15 [History] Calcium Carbonate/Vitamin D3 [Calcium 600-Vit D3 200 Tablet] 1 tab PO DAILY 09/25 [History] Escitalopram [Lexapro] 15 mg PO DAILY 12/19/15 [History] LORazepam [Ativan] 0.5 mg PO HS 12/19/15 [History] Levothyroxine [Synthroid] 75 mcg PO DAILY 12/19/15 [History] Lisinopril 2.5 mg PO DAILY 12/19/15 [History] Metoprolol XL (24 HR) Succ [Toprol XL] 50 mg PO DAILY 12/19/15 [History] Multivitamin [Multi-Day Vitamins] 1 tab PO DAILY 12/19/15 [History] Ranitidine HCl [Acid Field Technician] 150 mg PO DAILY 12/19/15 [History] Ursodiol 300 mg PO TID 12/19/15 [History] 3 Allergy/AdvReac Type Severity Reaction Status Date / Time meperidine [From Demerol] Allergy Hallucinati Verified 11/22/14 10:59 ng acetaminophen [From Vicodin] AdvReac See Verified 11/22/14 10:59 Comments Amoxicillin [From Augmentin] AdvReac See Verified 11/22/14 10:59 Comments azithromycin AdvReac See Verified 11/22/14 10:59 Comments clavulanic acid AdvReac See Verified 11/22/14 10:59 [From Augmentin] Comments codeine AdvReac See Verified 11/22/14 10:59 Comments hydrocodone [From Vicodin] AdvReac See Verified 11/22/14 10:59 Comments sertraline [From Zoloft] AdvReac See Verified 11/22/14 10:59 Comments sulfamethoxazole AdvReac See Verified 11/22/14 10:59 [From Bactrim] Comments trimethoprim [From Bactrim] AdvReac See Verified 11/22/14 10:59 Comments - Meds/Allergy Pre-op Review Medications Reviewed: Yes Allergies Reviewed: Yes Beta Blockers on Current Med List: Yes If Beta Blockers taken, Date/Time (Last Dose taken): will give IV meoprolol pre- op Anesthesia Results - Labs 11/26/16 04:53 11/26/16 04:53 Anesthesia Exam O2 Sat Height 1.55 m Weight 59.148 kg O2 Sat by Pulse Oximetry 94 O2 Sat by Pulse Oximetry 91 O2 Sat by Pulse Oximetry 93 O2 Sat by Pulse Oximetry 94 O2 Sat by Pulse Oximetry 93 O2 Sat by Pulse Oximetry 92 O2 Sat by Pulse Oximetry 97 Vital Signs Temp Pulse Resp BP Pulse Ox 98.9 F 83 16 150/103 92 11/25/16 06:15 11/25/16 06:15 11/25/16 06:15 11/25/16 06:15 11/25/16 06:15 Vital Signs/O2 Sat, Most Current Temp Pulse Resp BP Pulse Ox 97.8 F 78 16 110/61 94 11/26/16 11:18 11/26/16 11:18 11/26/16 11:18 11/26/16 11:18 11/26/16 11:18 Height: 5'1'' Weight: 130# NPO (# of Hours): > 8 hrs - HEENT Pupil (Motor): Pupils equal, EOMI Mallampati: II Teeth: Normal Oral Opening: Greater than 3 - BORDEREAU CLERK LOC: Oriented BORDEREAU CLERK Motor: Normal RUE, Normal LUE, Normal RLE, Normal LLE, Normal Face BORDEREAU CLERK Sensory: Normal: RUE, LUE, RLE, LLE, Face - Cardiac Rhythm: Regular Murmur: None JVD: No Carotid Bruit: No - Pulmonary Breath Sounds: bilateral Clear Respiratory Effort: Symmetrical Anesthesia Assess/Plan ASA Score: 3 Modified [place] Scale for Level of Consciousness: Cooperative, oriented, and tranquil Anesthetic Plan: MAC Autologous Blood: Yes Monitoring Plan: Standard Monitors Recovery Plan: Other
--- NOTE | 2016-11-26 16:50 | Electrocardiograph Report ---
[facility] Test Date: 2016-11-25 Pat Name: Gissel Roy Department: 103 Room: 3B34 Gender: F Aviation Medicine Specialist: GINNA : 1940 Requested By: Herb Johnson Order Number: [id number] Reading MD: Andrez Garcia DO Measurements Intervals [place] Rate: 70 P: -18 RI: 155 QRS: -5 QRSD: 89 T: -13 QT: 395 QTc: 416 Interpretive Statements SINUS RHYTHM Electronically Signed On 11-26-2016 16:48:30 EDT by Andrez Garcia DO
[2016-11-26] MEDS ORDERED: SODIUM CHLORIDE/NAHCO3/KCL/PEG 4,000 ML SOLN.RECON PO ONE (17:00)
[2016-11-26] MEDS: *HR* LORazepam 0.5 MG TABLET PO SCH (20:04)
[2016-11-26] MEDS: Ondansetron 4 MG/2 ML VIAL IVP PRN (20:04)
[2016-11-27] MEDS: Famotidine 20 MG/2 ML VIAL IVP SCH ×2 (05:59→16:37)
[2016-11-27] MEDS: MetroNIDAZOLE 500 MG/100 ML 500 MG/100 ML BAG IVPB SCH ×3 (10:19→23:57)
[2016-11-27] MEDS: Metoprolol XL (24 HR) Succ 50 MG TAB.ER.24H PO SCH (12:21)
--- NOTE | 2016-11-27 12:21 | Internal Med Progress Note ---
Date of Encounter: 11/27/16 Time of Encounter: 12:21 - Assessment and plan (1) Acute colitis Current Visit: Yes Status: Acute Assessment and plan: Continue antibiotics Advance diet as tolerated after colonoscopy (2) Primary biliary cirrhosis Current Visit: Yes Status: Chronic Assessment and plan: Chronic , with portal HTN, EGD showed Grade III non-bleeding esophageal varices and portal htn gastropathy , no bleeding, patient denies melena, stool has been clear due to GI prep (3) Essential hypertension Current Visit: Yes Status: Chronic Assessment and plan: Controlled, continue home meds (4) Hypothyroidism Current Visit: Yes Status: Chronic Assessment and plan: Continue home meds Qualifiers: Hypothyroidism type: acquired Qualified Code(s): E03.9 - Hypothyroidism, unspecified (5) DVT prophylaxis Current Visit: Yes Status: Acute Assessment and plan: Heparin (6) Esophageal varices Current Visit: Yes Status: Chronic Assessment and plan: secondary to portal HTN No evidence of bleed Qualifiers: Esophageal varices type: secondary Esophageal varices bleeding: without bleeding Qualified Code(s): I85.10 - Secondary esophageal varices without bleeding - Subjective Interval history: Seen and evaluated at bedside Admitted to observation for colitis and enteritis She has a PMH of PBC with Grade I varices, portal HTN, Hypothyroidism and HTN Patient is seen today, complains of wanting a diet, reassured of a after GI procedure-colonoscopy she is not having melena, Hb is stable, hemodynamically stable She does endorse that her abdominal pain is much improved - Constitutional Vitals: Temp Pulse Resp BP Pulse Ox 97.6 F 74 16 135/71 97 11/27/16 11:39 11/27/16 11:39 11/27/16 11:39 11/27/16 11:39 11/27/16 11:39 General appearance: Present: A&O X 3, pleasant, no acute distress - Head Head exam: Present: atraumatic, normocephalic - Eye Eye exam: Present: PERRL, conjuntiva pink, sclera anicteric Pupils: Present: PERRL - Neck Neck exam general surgery: Present: supple, trachea midline. Absent: lymphadenopathy - Respiratory Respiratory exam: Present: CTAB. Absent: accessory muscle use, rales, rhonchi, wheezes - Cardiovascular Cardiovascular exam: Present: RRR, +S1, +S2. Absent: diastolic murmur, gallop, rubs, systolic murmur - GI/Abdominal GI/Abdominal exam: Present: normal bowel sounds, soft, no peritoneal signs. Absent: distended, tenderness - Extremities Exam Extremities exam: Present: warm, radial pulses palpable and symmetrical. Absent : calf tenderness, cyanotic, pedal edema - Neurological Exam Neurological exam: Present: alert, CN II-XII intact, oriented X3, no focal deficits. Absent: pronater drift, facial droop, speech deficit - Skin Skin exam: Present: dry, intact Internal Medicine: Result - Labs CBC & Chem 7: 11/26/16 04:53 11/26/16 04:53 - VTE Documentation of Mechanical Device: Intermittent pneumatic compression device Consult Discharge Plan - Plan Referrals: Lanny Rogers, ASSOCIATE DIRECTOR OF NURSING [Primary Care Provider] -
[2016-11-27] MEDS: Levofloxacin 750 MG/150 ML 750 MG/150 ML BAG IVPB SCH (12:35)
--- NOTE | 2016-11-27 13:09 | Anesthesia Evaluation PreOp ---
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 History: Denies Any Significant HX Other Medical History: Hepatic (Biliary Cirrhosis), Thyroid (Hypothyroid) Anesthesia History: No Prior Anesthetic Complications, Past Anesthesia (EGD, GEGE , Breast Sx) : No Alcohol Use: rarely Drug use: none Medications and Allergies Aspirin 81 mg PO DAILY 12/19/15 [History] Calcium Carbonate/Vitamin D3 [Calcium 600-Vit D3 200 Tablet] 1 tab PO DAILY 09/25 [History] Escitalopram [Lexapro] 15 mg PO DAILY 12/19/15 [History] LORazepam [Ativan] 0.5 mg PO HS 12/19/15 [History] Levothyroxine [Synthroid] 75 mcg PO DAILY 12/19/15 [History] Lisinopril 2.5 mg PO DAILY 12/19/15 [History] Metoprolol XL (24 HR) Succ [Toprol XL] 50 mg PO DAILY 12/19/15 [History] Multivitamin [Multi-Day Vitamins] 1 tab PO DAILY 12/19/15 [History] Ranitidine HCl [Acid Supervisor [employer]] 150 mg PO DAILY 12/19/15 [History] Ursodiol 300 mg PO TID 12/19/15 [History] 3 Allergy/AdvReac Type Severity Reaction Status Date / Time meperidine [From Demerol] Allergy Hallucinati Verified 11/22/14 10:59 ng acetaminophen [From Vicodin] AdvReac See Verified 11/22/14 10:59 Comments Amoxicillin [From Augmentin] AdvReac See Verified 11/22/14 10:59 Comments azithromycin AdvReac See Verified 11/22/14 10:59 Comments clavulanic acid AdvReac See Verified 11/22/14 10:59 [From Augmentin] Comments codeine AdvReac See Verified 11/22/14 10:59 Comments hydrocodone [From Vicodin] AdvReac See Verified 11/22/14 10:59 Comments sertraline [From Zoloft] AdvReac See Verified 11/22/14 10:59 Comments sulfamethoxazole AdvReac See Verified 11/22/14 10:59 [From Bactrim] Comments trimethoprim [From Bactrim] AdvReac See Verified 11/22/14 10:59 Comments - Meds/Allergy Pre-op Review Medications Reviewed: Yes Allergies Reviewed: Yes Beta Blockers on Current Med List: Yes If Beta Blockers taken, Date/Time (Last Dose taken): 12:21 11/27/16 Anesthesia Results - Labs 11/26/16 04:53 11/26/16 04:53 Anesthesia Exam O2 Sat Weight 58.833 kg O2 Sat by Pulse Oximetry 97 O2 Sat by Pulse Oximetry 92 O2 Sat by Pulse Oximetry 94 O2 Sat by Pulse Oximetry 93 O2 Sat by Pulse Oximetry 94 O2 Sat by Pulse Oximetry 94 O2 Sat by Pulse Oximetry 92 O2 Sat by Pulse Oximetry 94 Vital Signs Temp Pulse Resp BP Pulse Ox 98.9 F 83 16 150/103 92 11/25/16 06:15 11/25/16 06:15 11/25/16 06:15 11/25/16 06:15 11/25/16 06:15 Vital Signs/O2 Sat, Most Current Temp Pulse Resp BP Pulse Ox 97.6 F 74 16 135/71 97 11/27/16 11:39 11/27/16 11:39 11/27/16 11:39 11/27/16 11:39 11/27/16 11:39 Height: 5'1'' Weight: 129# NPO (# of Hours): > 8 Hrs Pain Scale: 0 Pain Scale Used: Numeric (1 - 10) - HEENT Pupil (Motor): Pupils equal, EOMI Mallampati: II Teeth: Normal Oral Opening: Greater than 3 - 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
[2016-11-27] MEDS ORDERED: 0.9 % Sodium Chloride 1,000 ML IVC SCH (14:45)
[2016-11-27] MEDS ORDERED: *HR* Propofol 500 MG/50 ML BOTTLE IVC ONE (14:46)
[2016-11-27] MEDS: Aspirin 81 MG TAB.CHEW PO SCH (16:37)
--- NOTE | 2016-11-27 18:17 | Event Note ---
Date of Encounter: 11/27/16 Time of Encounter: 18:13 When I was passing through the [address], noticed pt's family were in panic mode at outside the pt's room and asked what happened. They said Pt has bleeding per rectum and she just came back from colonoscopy. When I went in and examined her , she is bleeding per rectum. Spoke to GI Dr. Figueroa, who mentioned she had hemorrhagic hemorrhoids..recommend to start her on Anusol HC [place] TID, Fiber and Sitz batch. Also placed on IV fluids. Close monitoring of H / H..Will signs out to night team
[2016-11-27] MEDS: 0.9 % Sodium Chloride 1,000 ML IVC SCH (18:56)
[2016-11-27] MEDS: Hydrocortisone Acetate 25 MG RECTAL SUPPOSITORY RC SCH ×2 (18:56→22:47)
[2016-11-27 18:59] LABS: Hematocrit 34.8 % (35.3-44.9)
[2016-11-27] MEDS: *HR* LORazepam 0.5 MG TABLET PO SCH (20:30)
[2016-11-28 00:40] LABS: Basophils % 0.6 %; Eosinophils # 0.1 K/mcL (0.0-0.6); Eosinophils % 3.1 %; Hematocrit 30.5 % (35.3-44.9); Hemoglobin 10.6 g/dL (11.5-15.4); Immature Granulocytes % 0.3 % (0-4); Immature Platelets 2.7 % (1.1-6.1); Lymphocytes # 0.8 K/mcL (0.6-4.6); Lymphocytes % 22.7 %; Mean Corpuscular HGB Conc 34.8 g/dL (31.6-35.5); Mean Corpuscular Hemoglobin 35.9 pg (28.0-33.3); Mean Corpuscular Volume 103.4 fL (83.0-100.0); Mean Platelet Volume 9.5 fL (9.4-12.4); Monocytes # 0.4 K/mcL (0.0-1.3); Monocytes % 11.8 %; Neutrophils # 2.2 K/mcL (1.6-8.9); Red Blood Count 2.95 M/mcL (3.82-4.97); Red Cell Distribution Width 13.4 % (11.5-14.5); Segmented Neutrophils % 61.5 %
[2016-11-28 00:43] LABS: Platelet Count 74 K/mcL (140-400)
[2016-11-28 00:52] LABS: BUN/Creatinine Ratio 16 (6-26); Blood Urea Nitrogen 14 mg/dL (7-20); Calcium 7.7 mg/dL (8.6-10.8); Carbon Dioxide 19 mEq/L (19-29); Chloride 113 mEq/L (98-109); Glucose 101 mg/dL (70-99); Osmolality,Calculated 291 (280-300); Potassium 3.5 mEq/L (3.5-4.5); Sodium 140 mEq/L (136-145); eGFR For African Americans > 60 (> 60); eGFR For Non-African Americans > 60 (> 60)
[2016-11-28] MEDS: Famotidine 20 MG/2 ML VIAL IVP SCH (05:47)
[2016-11-28 07:45] LABS: Hematocrit 30.9 % (35.3-44.9); Hemoglobin 10.5 g/dL (11.5-15.4)
[2016-11-28] MEDS: 0.9 % Sodium Chloride 1,000 ML IVC SCH (07:54)
[2016-11-28] MEDS: MetroNIDAZOLE 500 MG/100 ML 500 MG/100 ML BAG IVPB SCH (08:02)
[2016-11-28] MEDS: metroNIDAZOLE 500 MG TABLET PO SCH ×3 (08:19→20:22)
[2016-11-28] MEDS: Metoprolol XL (24 HR) Succ 50 MG TAB.ER.24H PO SCH (09:29)
[2016-11-28] MEDS: Aspirin 81 MG TAB.CHEW PO SCH (09:29)
[2016-11-28] MEDS: Hydrocortisone Acetate 25 MG RECTAL SUPPOSITORY RC SCH ×2 (09:30→20:46)
--- NOTE | 2016-11-28 11:44 | Internal Med Progress Note ---
Date of Encounter: 11/28/16 Time of Encounter: 11:00 - Assessment and plan (1) Acute colitis Current Visit: Yes Status: Acute Assessment and plan: Continue antibiotics, change to oral, tolerating oral diet (2) Primary biliary cirrhosis Current Visit: Yes Status: Chronic Assessment and plan: Chronic , with portal HTN, EGD showed Grade III non-bleeding esophageal varices and portal htn gastropathy , Patient qualifies for pre-prophylaxis with non-selective BB, but is already on metoprolol for HTN, continue same, defer management to GI as out-patient (3) Essential hypertension Current Visit: Yes Status: Chronic Assessment and plan: Controlled, continue home meds (4) Hypothyroidism Current Visit: Yes Status: Chronic Assessment and plan: Continue home meds Qualifiers: Hypothyroidism type: acquired Qualified Code(s): E03.9 - Hypothyroidism, unspecified (5) DVT prophylaxis Current Visit: Yes Status: Acute Assessment and plan: Heparin (6) Esophageal varices Current Visit: Yes Status: Chronic Assessment and plan: secondary to portal HTN No evidence of bleed Qualifiers: Esophageal varices type: secondary Esophageal varices bleeding: without bleeding Qualified Code(s): I85.10 - Secondary esophageal varices without bleeding (7) Anemia Current Visit: Yes Status: Acute Assessment and plan: Secondary to bleed from hemorrhoids Hb 10, asymptomatic hemodynamically stable D/C IVF Check Hb a.m Patient educated, verbalized understanding Qualifiers: Anemia type: other cause Other causes of anemia: acute posthemorrhagic Qualified Code(s): D62 - Acute posthemorrhagic anemia - Subjective Interval history: Seen and evaluated at bedside Admitted to observation for colitis and enteritis She has a PMH of PBC with Grade III varices, portal HTN, Hypothyroidism and HTN Ps/p Colonoscopy 11/27 with supposed bleeding hemorrhoids, terminal ileum congestion and colitis-all biopsied Hb drop to 10 this morning, asymptomatic, hemodynamically stable, ambulatory and tolerating po Complained of diarrhea from the suppositories, otherwise reports improvement, no more BRB per rectum - Constitutional Vitals: Temp Pulse Resp BP Pulse Ox 97.9 F 79 16 122/73 94 11/28/16 11:00 11/28/16 11:00 11/28/16 11:00 11/28/16 11:00 11/28/16 11:00 General appearance: Present: A&O X 3, pleasant, no acute distress - Head Head exam: Present: atraumatic, normocephalic - Eye Eye exam: Present: PERRL, conjuntiva pink, sclera anicteric Pupils: Present: PERRL - Neck Neck exam general surgery: Present: supple, trachea midline. Absent: lymphadenopathy - Respiratory Respiratory exam: Present: CTAB. Absent: accessory muscle use, rales, rhonchi, wheezes - Cardiovascular Cardiovascular exam: Present: RRR, +S1, +S2. Absent: diastolic murmur, gallop, rubs, systolic murmur - GI/Abdominal GI/Abdominal exam: Present: normal bowel sounds, soft, no peritoneal signs. Absent: distended, tenderness - Expanded Exam Female exam: Present: deferred - Extremities Exam Extremities exam: Present: warm, radial pulses palpable and symmetrical. Absent : calf tenderness, cyanotic, pedal edema - Neurological Exam Neurological exam: Present: alert, CN II-XII intact, oriented X3, no focal deficits. Absent: pronater drift, facial droop, speech deficit - Skin Skin exam: Present: dry, intact Internal Medicine: Result - Labs CBC & Chem 7: 11/28/16 06:11 11/28/16 00:33 Labs: Short CBC 11/27/16 11/28/16 11/28/16 Range/Units 18:44 00:33 06:11 WBC 3.6 L (4.3-11.1) K/mcL Hgb 12.0 10.6 L 10.5 L (11.5-15.4) g/dL Hct 34.8 L 30.5 L 30.9 L (35.3-44.9) % Plt Count 74 L (140-400) K/mcL Neutrophils # 2.2 (1.6-8.9) K/mcL BMP 11/28/16 00:33 Sodium 140 Potassium 3.5 Chloride 113 H Carbon Dioxide 19 BUN 14 Creatinine 0.90 Glucose 101 H Calcium 7.7 L - VTE Documentation of Mechanical Device: Intermittent pneumatic compression device Consult Discharge Plan - Plan Referrals: Lanny Rogers, PARK ATTENDANT [Primary Care Provider] -
--- NOTE | 2016-11-28 13:01 | Gastroenterology Progress Note ---
Date of Encounter: 11/28/16 Time of Encounter: 11:20 - Assessment and plan (1) Anemia Current Visit: Yes Status: Acute Qualifiers: Anemia type: other cause Other causes of anemia: acute posthemorrhagic Qualified Code(s): D62 - Acute posthemorrhagic anemia (2) Internal hemorrhoid, bleeding Current Visit: Yes Status: Acute Assessment and plan: Colonoscopy with bleeding internal hemorrhoids. Continue Anusol HC suppositories twice a day and sitz baths. If patient remains symptomatic will plan for hemorrhoid banding as an outpatient. (3) Acute colitis Current Visit: Yes Status: Acute Assessment and plan: Continue antibiotics. Colonoscopy with bleeding internal hemorrhoids. - Time Spent With Patient Total time spent is greater than 50% in coordination of care (as documented) at patient's floor/unit and/or counseling patient: - Subjective Interval history: Pt resting in bed and states she is feeling better. She is without acute complaint at this time. - Constitutional Vitals: Temp Pulse Resp BP Pulse Ox 97.9 F 79 16 122/73 94 11/28/16 11:00 11/28/16 11:00 11/28/16 11:00 11/28/16 11:00 11/28/16 11:00 General appearance: Present: cooperative, A&O X 3, pleasant, no acute distress, answers questions appropriately - Head Head exam: Present: atraumatic, normocephalic - Eye Eye exam: Present: normal appearance, sclera anicteric - ENT ENT exam: Present: mucous membranes moist - Neck Neck exam general surgery: Present: normal inspection, trachea midline - Respiratory Respiratory exam: Present: CTAB - Cardiovascular Cardiovascular exam: Present: RRR, +S1, +S2 - GI/Abdominal GI/Abdominal exam: Present: soft, no peritoneal signs. Absent: distended, firm , guarding, tenderness - Rectal Rectal exam: Present: deferred - Extremities Exam Extremities exam: Present: warm - Neurological Exam Neurological exam: Present: no focal deficits - Psychiatric Psychiatric exam: Present: normal affect, normal mood - Skin Skin exam: Present: dry, intact, normal color, warm Results - Labs CBC & Chem 7: 11/28/16 06:11 11/28/16 00:33 Labs: Last Result Calcium 7.7 mg/dL (8.6-10.8) L 11/28/16 00:33 Entire Visit Hgb 10.5 g/dL (11.5-15.4) L 11/28/16 06:11 Hct 30.9 % (35.3-44.9) L 11/28/16 06:11 Total Bilirubin 0.8 mg/dL (0.2-1.2) 11/25/16 06:28 AST 53 Units/L (5-34) H 11/25/16 06:28 ALT 31 Units/L (0-55) 11/25/16 06:28 Lipase 159 Units/L (8-78) H 11/25/16 06:28 - VTE Documentation of Mechanical Device: Intermittent pneumatic compression device Consult Discharge Plan - Plan Referrals: Lanny Rogers, SPECIALIST EMPLOYEE LABOR RELATIONS [Primary Care Provider] -
[2016-11-28] MEDS: Psyllium 1 PACKET POWD.PACK PO SCH ×2 (14:52→20:22)
[2016-11-28] MEDS: *HR* LORazepam 0.5 MG TABLET PO SCH (20:22)
[2016-11-29 04:46] LABS: Basophils % 0.7 %; Eosinophils # 0.3 K/mcL (0.0-0.6); Eosinophils % 7.6 %; Hematocrit 34.2 % (35.3-44.9); Hemoglobin 11.8 g/dL (11.5-15.4); Immature Granulocytes % 0.2 % (0-4); Immature Platelets 3.4 % (1.1-6.1); Lymphocytes # 1.2 K/mcL (0.6-4.6); Lymphocytes % 28.5 %; Mean Corpuscular HGB Conc 34.5 g/dL (31.6-35.5); Mean Corpuscular Hemoglobin 35.5 pg (28.0-33.3); Mean Platelet Volume 10.2 fL (9.4-12.4); Monocytes # 0.5 K/mcL (0.0-1.3); Neutrophils # 2.1 K/mcL (1.6-8.9); Red Blood Count 3.32 M/mcL (3.82-4.97); Red Cell Distribution Width 13.3 % (11.5-14.5)
[2016-11-29 04:51] LABS: Platelet Count 90 K/mcL (140-400)
[2016-11-29 08:12] VITALS: BP 116/69
[2016-11-29] MEDS: metroNIDAZOLE 500 MG TABLET PO SCH (09:13)
[2016-11-29] MEDS: Hydrocortisone Acetate 25 MG RECTAL SUPPOSITORY RC SCH (09:14)
[2016-11-29] MEDS: Metoprolol XL (24 HR) Succ 50 MG TAB.ER.24H PO SCH (09:14)
[2016-11-29] MEDS: Aspirin 81 MG TAB.CHEW PO SCH (09:14)
[2016-11-29] MEDS: Psyllium 1 PACKET POWD.PACK PO SCH (09:14)
--- NOTE | 2016-11-29 11:20 | Discharge Summary ---
Date of Encounter: 11/29/16 Time of Encounter: 11:00 - Discharge Diagnosis (1) Acute colitis Priority: Primary Status: Acute (2) Primary biliary cirrhosis Priority: Secondary Status: Chronic (3) Essential hypertension Priority: Secondary Status: Chronic (4) Hypothyroidism Priority: Secondary Status: Chronic Qualifiers: Hypothyroidism type: acquired Qualified Code(s): E03.9 - Hypothyroidism, unspecified (5) DVT prophylaxis Priority: Primary Status: Acute (6) Esophageal varices Priority: Secondary Status: Chronic Qualifiers: Esophageal varices type: secondary Esophageal varices bleeding: without bleeding Qualified Code(s): I85.10 - Secondary esophageal varices without bleeding (7) Anemia Priority: Primary Status: Resolved Qualifiers: Anemia type: other cause Other causes of anemia: acute posthemorrhagic Qualified Code(s): D62 - Acute posthemorrhagic anemia - Discharge Medications Prescriptions: Ciprofloxacin [Cipro] 250 mg PO BID #4 tablet Hydrocortisone Acetate [Anucort-Hc] 25 mg RC BID #30 supp.rect metroNIDAZOLE [Flagyl] 500 mg PO TID #6 tablet Psyllium [Metamucil Fiber Singles Packet] 1 packet PO TID #30 powd.pack Home Medications: Aspirin 81 mg PO DAILY 12/19/15 [History] Calcium Carbonate/Vitamin D3 [Calcium 600-Vit D3 200 Tablet] 1 tab PO DAILY 09/25 [History] Escitalopram [Lexapro] 15 mg PO DAILY 12/19/15 [History] LORazepam [Ativan] 0.5 mg PO HS 12/19/15 [History] Levothyroxine [Synthroid] 75 mcg PO DAILY 12/19/15 [History] Lisinopril 2.5 mg PO DAILY 12/19/15 [History] Metoprolol XL (24 HR) Succ [Toprol Xl] 50 mg PO DAILY 12/19/15 [History] Multivitamin [Multi-Day Vitamins] 1 tab PO DAILY 12/19/15 [History] Ranitidine HCl [Acid Director Of Cardiac Cath Lab] 150 mg PO DAILY 12/19/15 [History] Ursodiol 300 mg PO TID 12/19/15 [History] Ciprofloxacin [Cipro] 250 mg PO BID #4 tablet 11/29/16 [Rx] Hydrocortisone Acetate [Anucort-Hc] 25 mg RC BID #30 supp.rect 11/29/16 [Rx] Psyllium [Metamucil Fiber Singles Packet] 1 packet PO TID #30 powd.pack [Rx] metroNIDAZOLE [Flagyl] 500 mg PO TID #6 tablet 11/29/16 [Rx] Allergies/Adverse Reactions: 3 Allergy/AdvReac Type Severity Reaction Status Date / Time meperidine [From Demerol] Allergy Hallucinati Verified 11/22/14 10:59 ng acetaminophen [From Vicodin] AdvReac See Verified 11/22/14 10:59 Comments Amoxicillin [From Augmentin] AdvReac See Verified 11/22/14 10:59 Comments azithromycin AdvReac See Verified 11/22/14 10:59 Comments clavulanic acid AdvReac See Verified 11/22/14 10:59 [From Augmentin] Comments codeine AdvReac See Verified 11/22/14 10:59 Comments hydrocodone [From Vicodin] AdvReac See Verified 11/22/14 10:59 Comments sertraline [From Zoloft] AdvReac See Verified 11/22/14 10:59 Comments sulfamethoxazole AdvReac See Verified 11/22/14 10:59 [From Bactrim] Comments trimethoprim [From Bactrim] AdvReac See Verified 11/22/14 10:59 Comments Date of admission: 11/25/16 10:32 Primary care physician: Lanny Rogers CNP Consults: 11/25/16 10:58 Consult to Physician [CONS] Routine Consulting Provider: Karine Figueroa Reason for Consult: Acute colitis Call Completed: Yes Discharging clinician: Eduardo Bhakta Anticipated date of discharge: 11/29/16 - Patient Status Disposition: Home, Self-Care Condition: Good Functional capacity at discharge: independent ambulation Overall status at discharge: patient is back to baseline - Discharge Instructions Instructions: Ulcerative Colitis (DC) Follow Up With: Lanny Rogers CNP [Primary Care Provider] - 12/11/16 10:30 am - Diet and Activity Activity: resume usual activities as tolerated Diet: low fat, low cholesterol, low salt diet Interval History: See below Hospital course: Ms. Roy is a 76 year old female with PMH of Hypothyroidism, PBC with esophageal varices, HTN, who was admitted for management of colitis deemed to be infectious in etiology She is seen at bedside this morning with no new complains She has been tolerating orally and being on anitbiotics During this hospital stay, she had EGD and Colonoscopy done. EGD revealed Grade III esophageal varices and evidence of gastric portal HTN, colonoscopy bleeding hemorrhoids, terminal ileum congestion and colitis-all biopsied She is clinically stable, improved and safe to be discharged home to complete antibiotics and on anusol suppositories and fibre Her hemorrhoids are not bleeding, Hb is stable, she is hemodynamically stable Follow up with PCP and Media Specialist - Time Spent with Patient Total time spent providing and/or coordinating discharge services: Greater than 30 minutes - Constitutional Vitals: Temp Pulse Resp BP Pulse Ox 98.2 F 79 18 116/69 92 11/29/16 08:10 11/29/16 08:10 11/29/16 08:10 11/29/16 08:10 11/29/16 03:30 General appearance: Present: A&O X 3, pleasant, no acute distress - Head Head exam: Present: atraumatic, normocephalic - Eye Eye exam: Present: PERRL, conjuntiva pink, sclera anicteric Pupils: Present: PERRL - Neck Neck exam general surgery: Present: supple, trachea midline. Absent: lymphadenopathy - Respiratory Respiratory exam: Present: CTAB. Absent: accessory muscle use, rales, rhonchi, wheezes - Cardiovascular Cardiovascular exam: Present: RRR, +S1, +S2. Absent: diastolic murmur, gallop, rubs, systolic murmur - GI/Abdominal GI/Abdominal exam: Present: normal bowel sounds, soft, no peritoneal signs. Absent: distended, tenderness - Extremities Exam Extremities exam: Present: warm, radial pulses palpable and symmetrical. Absent : calf tenderness, cyanotic, pedal edema - Neurological Exam Neurological exam: Present: alert, CN II-XII intact, oriented X3, no focal deficits. Absent: pronater drift, facial droop, speech deficit - Skin Skin exam: Present: dry, intact - VTE Documentation of Mechanical Device: Intermittent pneumatic compression device
== END 2016-11-29 14:47 | disposition home or self-care (01) ==
LOC: EMEROO 06:14 → 3ANU 06:14 → SUATTDRO 10:32 → 3BNU 11:03
PROVIDERS: ADMIT Internal Medicine; ATTEND Internal Medicine
PROC: ENDOCBX (2016-11-27 13:00)

== ENCOUNTER 2017-04-29 10:47 | Inpatient (IN) ==
--- NOTE | 2017-04-29 11:04 | Emergency Department Note ---
Disposition Clinical Impression: Primary biliary cirrhosis Gastrointestinal bleeding Qualifiers: GI bleed type/associated pathology: unspecified gastrointestinal hemorrhage type Qualified Code(s): K92.2 - Gastrointestinal hemorrhage, unspecified Anemia Qualifiers: Anemia type: unspecified type Qualified Code(s): D64.9 - Anemia, unspecified Disposition: Admitted As Inpatient Referrals: Lanny Rogers WARDROBE ASSISTANT [Primary Care Provider] - Forms: ED Satisfaction Letter Time of Disposition: 12:46 Pediatric SOB HPI - General Chief Complaint: ED Shortness of Breath/Dyspnea Stated Complaint: "lightheaded,weak,black stool" Time Seen by Provider: 04/29/17 10:57 Source: patient Mode of arrival: ambulatory Limitations: no limitations Nursing Notes Reviewed: Yes Vital Signs Reviewed: Yes - History of Present Illness HPI Narrative: 76-year-old female who comes in complaining of dyspnea and weakness dark tarry stools. Patient states she had colitis back in November has not really had any lab work done recently was found to be anemic with low hemoglobin low white count and low platelets. Last night she developed dark tarry stools. Pt Subjective Complaint: other (Dyspnea generalized weakness) Onset (ago): day(s) Consistency: constant Severity: moderate Context: recent illness (Scheduled to see hematology for evaluation of low hemoglobin and platelets and white count) Associated symptoms: Reports: other (Dyspnea generalized weakness) Improves with: nothing - Related Data Home Medications Medication Instructions Recorded Confirmed Aspirin 81 mg PO Q48H 12/19/15 03/18/17 Calcium Carbonate/Vitamin D3 1 tab PO DAILY 12/19/15 03/18/17 [Calcium 600-Vit D3 200 Tablet] Escitalopram [Lexapro] 15 mg PO DAILY 12/19/15 03/18/17 LORazepam [Ativan] 0.5 mg PO HS 12/19/15 03/18/17 Levothyroxine [Synthroid] 75 mcg PO DAILY 12/19/15 03/18/17 Lisinopril 2.5 mg PO DAILY 12/19/15 03/18/17 Metoprolol XL (24 HR) Succ [Toprol 50 mg PO DAILY 12/19/15 03/18/17 Xl] Multivitamin [Multi-Day Vitamins] 1 tab PO DAILY 12/19/15 03/18/17 Ranitidine HCl [Acid Service Tech/Welder] 150 mg PO DAILY 12/19/15 03/18/17 Ursodiol 300 mg PO TID 12/19/15 03/18/17 GuaiFENesin/Dextromethorphan [Gs 1 tab PO BID PRN 03/18/17 03/18/17 Mucus Relief Dm Tablet] Allergies Allergy/AdvReac Type Severity Reaction Status Date / Time meperidine [From Demerol] Allergy Hallucinati Verified 04/29/17 10:52 ng acetaminophen [From Vicodin] AdvReac See Verified 04/29/17 10:52 Comments Amoxicillin [From Augmentin] AdvReac See Verified 04/29/17 10:52 Comments azithromycin AdvReac See Verified 04/29/17 10:52 Comments clavulanic acid AdvReac See Verified 04/29/17 10:52 [From Augmentin] Comments codeine AdvReac See Verified 04/29/17 10:52 Comments hydrocodone [From Vicodin] AdvReac See Verified 04/29/17 10:52 Comments sertraline [From Zoloft] AdvReac See Verified 04/29/17 10:52 Comments sulfamethoxazole AdvReac See Verified 04/29/17 10:52 [From Bactrim] Comments trimethoprim [From Bactrim] AdvReac See Verified 04/29/17 10:52 Comments Pediatric Review of Systems All systems ED: reviewed and negative except as stated. Constitutional: Denies: fever, chills, change in activity level Eyes: Denies: eye pain, eye discharge ENT: Denies: ear pain, sore throat Cardiovascular: Denies: chest pain Respiratory: Reports: dyspnea. Denies: cough Gastrointestinal: Denies: abdominal pain Genitourinary: Denies: dysuria, polyuria Musculoskeletal: Denies: back pain Integumentary: Denies: rash Neurological: Reports: weakness (Generalized). Denies: headache, numbness Psychiatric: Denies: change in energy level Endocrine: Denies: fatigue Hematological/Lymphatic: Denies: easy bruising Allergic/Immunologic: Denies: facial swelling, urticaria Pediatric Exam - General Limitations: no limitations General appearance: well-appearing, well-hydrated, active, well-nourished - Head Head exam: normocephalic, atruamatic, normal inspection - Expanded Head Exam Head exam: Present: contusion - Eye Eye exam: Present: normal appearance, PERRL, EOMI - ENT ENT exam: normal exam, normal oropharynx, mucous membranes moist - Expanded ENT Exam External ear exam: Present: normal external inspection - Neck Neck exam: Present: normal inspection, full ROM - Respiratory Respiratory exam: Present: normal lung sounds bilaterally - Cardiovascular Cardiovascular exam: Present: regular rate, normal rhythm - Abdominal Exam Abdominal exam: Present: soft, Non-Tender, normal bowel sounds - Expanded Lower Extremity Exam Gait: observed and normal - Back Exam Back exam: Present: normal inspection, full ROM - Neurological Exam Neurological exam: Present: alert, oriented X3 - Expanded Neurological Exam Patient oriented to: Present: person Speech: Present: fluid speech Coma Scale Eye Opening: Spontaneous Coma Scale Motor Response: Obeys Commands Coma Scale Verbal Response: Oriented Coma Scale Total: 15 - Skin Skin exam: Present: warm, dry, intact, normal color - Expanded Skin Exam Type of lesion: Absent: rash Course - Reevaluation(s) Reevaluation #1: 76-year-old history of primary biliary cirrhosis esophageal varices comes in with dark tarry stools. Stool guaiac was positive. Review the records shows that the patient said colitis recently. Had internal hemorrhoids also. Time: 12:06 - Consultations Consultation #1: Discussed with Marcella mullins of hematology will see the patient in consultation. Time: 12:44 Consultation #2: Discussed with , admit to hospitalist will see in consultation. Time: 12:44 Vital Signs Temperature 97.6 F 04/29/17 10:48 Pulse Rate 78 04/29/17 10:48 Respiratory Rate 20 04/29/17 10:48 Blood Pressure 128/64 04/29/17 10:48 O2 Sat by Pulse Oximetry 97 04/29/17 10:48 Temperature 97.6 F 04/29/17 10:48 Pulse Rate 77 04/29/17 12:23 Respiratory Rate 15 04/29/17 12:23 Blood Pressure 109/59 04/29/17 12:23 O2 Sat by Pulse Oximetry 96 04/29/17 12:23 Oxygen Delivery Oxygen Delivery Room Air Medical Decision Making - Lab Data Lab results reviewed: Yes I reviewed the patient's lab results. Result diagrams: 04/29/17 11:20 04/29/17 11:20 Lab Results 04/29/17 04/29/17 04/29/17 Range/Units 11:20 11:20 11:20 WBC 5.5 (4.3-11.1) K/mcL RBC 2.25 L (3.82-4.97) M/mcL Hgb 6.9 L (11.5-15.4) g/dL Hct 22.2 L (35.3-44.9) % MCV 98.7 (83.0-100.0) fL MCH 30.7 (28.0-33.3) pg MCHC 31.1 L (31.6-35.5) g/dL RDW 13.5 (11.5-14.5) % Plt Count 116 L (140-400) K/mcL MPV 10.0 (9.4-12.4) fL Immature Gran % 0.5 (0-4) % Seg Neutrophils % 72.7 % Lymphocytes % 16.7 % Monocytes % 6.7 % Eosinophils % 2.9 % Basophils % 0.5 % Neutrophils # 4.0 (1.6-8.9) K/mcL Lymphocytes # 0.9 (0.6-4.6) K/mcL Monocytes # 0.4 (0.0-1.3) K/mcL Eosinophils # 0.2 (0.0-0.6) K/mcL Basophils # 0.0 (0.0-0.2) K/mcL Nucleated RBCs/100 WBC 0.4 H (0) /100 WBC PT 11.5 (9.4-12.1) Seconds INR 1.1 APTT 25.3 L (26.0-36.0) Seconds Sodium 137 (136-145) mEq/L Potassium 4.2 (3.5-5.1) mEq/L Chloride 111 H (98-107) mEq/L Carbon Dioxide 21 L (23-29) mEq/L BUN 40 H (8-23) mg/dL Creatinine 0.83 (0.60-1.20) mg/dL Est GFR ( Amer) > 60 (> 60) Est GFR (Non-Af Amer) > 60 (> 60) BUN/Creatinine Ratio 48 H (6-26) Glucose 165 H (70-105) mg/dL Calculated Osmolality 297 (280-300) Calcium 8.8 (8.6-10.3) mg/dL Troponin I < 0.03 (< 0.04) ng/mL Blood Type Antibody Screen Crossmatch 03/20/18 Range/Units 11:20 WBC (4.3-11.1) K/mcL RBC (3.82-4.97) M/mcL Hgb (11.5-15.4) g/dL Hct (35.3-44.9) % MCV (83.0-100.0) fL MCH (28.0-33.3) pg MCHC (31.6-35.5) g/dL RDW (11.5-14.5) % Plt Count (140-400) K/mcL MPV (9.4-12.4) fL Immature Gran % (0-4) % Seg Neutrophils % % Lymphocytes % % Monocytes % % Eosinophils % % Basophils % % Neutrophils # (1.6-8.9) K/mcL Lymphocytes # (0.6-4.6) K/mcL Monocytes # (0.0-1.3) K/mcL Eosinophils # (0.0-0.6) K/mcL Basophils # (0.0-0.2) K/mcL Nucleated RBCs/100 WBC (0) /100 WBC PT (9.4-12.1) Seconds INR APTT (26.0-36.0) Seconds Sodium (136-145) mEq/L Potassium (3.5-5.1) mEq/L Chloride (98-107) mEq/L Carbon Dioxide (23-29) mEq/L BUN (8-23) mg/dL Creatinine (0.60-1.20) mg/dL Est GFR ( Amer) (> 60) Est GFR (Non-Af Amer) (> 60) BUN/Creatinine Ratio (6-26) Glucose (70-105) mg/dL Calculated Osmolality (280-300) Calcium (8.6-10.3) mg/dL Troponin I (< 0.04) ng/mL Blood Type B POSITIVE Antibody Screen NEGATIVE Crossmatch See Detail - Radiology Data Radiology results reviewed: Yes I reviewed the patient's radiology results. - EKG Data EKG #1 EKG attestation: Yes I reviewed and interpreted this EKG. EKG shows normal: sinus rhythm Rhythm: NSR [place]/QRS: normal Interpretation: no acute changes Critical Care Time Critical Care Time: Yes Total Critical Care Time: 30 Attestation: The high probability of a clinically significant, sudden or life threatening deterioration of the [gastrointestinal] system(s) required my full and direct attention, intervention and personal management. The aggregate critical care time was [30] minutes. This time is in addition to time spent performing reported procedures but includes the following: [x] Data Review and interpretation [x] Patient assessment and monitoring of vital signs [x] Documentation [x] Medication orders and management
[2017-04-29 11:34] LABS: Basophils % 0.5 %; Eosinophils # 0.2 K/mcL (0.0-0.6); Eosinophils % 2.9 %; Hematocrit 22.2 % (35.3-44.9); Immature Granulocytes % 0.5 % (0-4); Lymphocytes # 0.9 K/mcL (0.6-4.6); Lymphocytes % 16.7 %; Mean Corpuscular HGB Conc 31.1 g/dL (31.6-35.5); Mean Corpuscular Hemoglobin 30.7 pg (28.0-33.3); Mean Corpuscular Volume 98.7 fL (83.0-100.0); Monocytes # 0.4 K/mcL (0.0-1.3); Monocytes % 6.7 %; Nucleated Red Blood Cells 0.4 /100 WBC (0); Platelet Count 116 K/mcL (140-400); Red Blood Count 2.25 M/mcL (3.82-4.97); Red Cell Distribution Width 13.5 % (11.5-14.5); Segmented Neutrophils % 72.7 %
[2017-04-29 11:39] LABS: Hemoglobin 6.9 g/dL (11.5-15.4)
[2017-04-29 11:40] LABS: INR 1.1; Prothrombin Time 11.5 Seconds (9.4-12.1)
[2017-04-29 11:43] LABS: Activated Partial Thrombo Time 25.3 Seconds (26.0-36.0)
[2017-04-29 11:54] LABS: Troponin I < 0.03 ng/mL (< 0.04)
[2017-04-29 11:56] LABS: BUN/Creatinine Ratio 48 (6-26); Blood Urea Nitrogen 40 mg/dL (8-23); Calcium 8.8 mg/dL (8.6-10.3); Carbon Dioxide 21 mEq/L (23-29); Chloride 111 mEq/L (98-107); Glucose 165 mg/dL (70-105); Osmolality,Calculated 297 (280-300); Potassium 4.2 mEq/L (3.5-5.1); Sodium 137 mEq/L (136-145); eGFR For African Americans > 60 (> 60); eGFR For Non-African Americans > 60 (> 60)
[2017-04-29] MEDS ORDERED: 0.9 % Sodium Chloride 250 ML ONE (13:09)
[2017-04-29] MEDS ORDERED: Naloxone 0.4 MG/ML INJ IVP PRN (13:26)
--- NOTE | 2017-04-29 13:38 | Internal Med History&Physical ---
<Aj Weaver - Last Filed: 04/29/17 14:33> Date of Encounter: 04/29/17 Time of Encounter: 13:35 Assessment and Plan (1) Gastrointestinal bleeding Current visit: Yes Status: Acute Gastrointestinal bleeding most likely secondary to esophageal varices. Presents today with weakness, shortness of breath and dark tarry stools began this morning. Patient has a history of colitis and esophageal varices as well as primary biliary cirrhosis. She follows with Dr. Figueroa. Last colonoscopy was on 11/28/16 and identified internal hemorrhoids. Last EGD was on 03/3018 grade 1 esophageal varices. H&H in the ED today was 6.9/22.2. -Consult gastroenterology-spoke with Dr. Singh who will see the patient in consultation. His recommendations are to start octreotide drip now and PPI twice a day. -Consult hematology oncology-Marcella Mendiola will see the patient consultation -Every 6 H&H -Continue to monitor hemoglobin and anemic status -Type and screen completed; transfuse 2 units packed red cells. -IVF 0.9 NS at 75 mL per hour -CBC and CMP in the a.m. -NPO sips with meds Qualifiers: GI bleed type/associated pathology: unspecified gastrointestinal hemorrhage type Qualified Code(s): K92.2 - Gastrointestinal hemorrhage, unspecified (2) Anemia Current visit: Yes Status: Acute See Dr. Mark as an outpatient. Qualifiers: Anemia type: unspecified type Qualified Code(s): D64.9 - Anemia, unspecified (3) History of colitis Current visit: Yes Status: Acute H/o of colitis. Admitted in Nov, 2016 and had a diagnosis of viral/vs/ infective colitis. Colonoscopy on 11/28/16 also reveals some internal hemorrhoids. Follows with Dr. Figueroa (4) Primary biliary cirrhosis Current visit: Yes Status: Chronic Follows with Dr. Figueroa. Continue home medications (5) Essential hypertension Current visit: Yes Status: Chronic Stable. Resume antiHTN medications (6) Esophageal varices Current visit: Yes Status: Chronic H/o esophageal varices. Diagnosed in 03/30. Follows with Dr. Figueroa. Presents today with melanic stools which began this morning. See plan above Qualifiers: Esophageal varices type: secondary Esophageal varices bleeding: without bleeding Qualified Code(s): I85.10 - Secondary esophageal varices without bleeding (7) Hypothyroidism Current visit: Yes Status: Chronic Resume synthroid Qualifiers: Qualified Code(s): E03.9 - Hypothyroidism, unspecified (8) DVT prophylaxis Current visit: Yes Status: Acute EPCD's Internal Medicine - H&P: HPI Chief complaint: WEAKNESS, SOB, GI BLEED Admitted From: Home Plans for Post Hospital Care: Home History of present illness: Ms. Roy is a 76 year old female with a PMH of grade 1 esophageal varices, hypertension, primary biliary cirrhosis. She presents to [facility] ED today with complaints of dyspnea which worsens with activity, weakness and dark tarry stools which began this morning. She reports that in November 2016 she was diagnosed with viral versus infective colitis but was not anemic at that time. However, she had an EGD in March 2017 which showed grade 1 esophageal varices. Her H&H in early April showed some mild anemia with hemoglobin of 8.7. However today's hemoglobin and hematocrit are 6.9/22.2. She denies any fever, chills, weight loss, night sweats, abdominal pain, rectal pain, hematuria , hematemesis, unusual bruising. She admits to weakness, fatigue, dizziness, shortness of breath which is worse with activity and dark tarry stools. Past Med Surg Social Fam HX - Past Medical History Medical history: cancer, hypertension, liver disease, thyroid disease Psychiatric history: no psych history - Past Surgical History Surgical History: breast surgery, cataract, hysterectomy - Social History Smoking Status: Former smoker Smokeless Tobacco Status: No Alcohol use: rarely Drug use: none - Family History Father Hx Family Cancer: Yes Mother Hx Family GI Disorders: Yes (liver disease) Sister Adopted: No Living Status: Hx Family Cardiac Disorders: Yes Internal Medicine - H&P: Meds Aspirin 81 mg PO Q48H 12/19/15 [History] Calcium Carbonate/Vitamin D3 [Calcium 600-Vit D3 200 Tablet] 1 tab PO DAILY 09/25 [History] Escitalopram [Lexapro] 15 mg PO DAILY 12/19/15 [History] LORazepam [Ativan] 0.5 - 1 mg PO HS 12/19/15 [History] Levothyroxine [Synthroid] 75 mcg PO DAILY 12/19/15 [History] Lisinopril 2.5 mg PO DAILY 12/19/15 [History] Metoprolol XL (24 HR) Succ [Toprol Xl] 50 mg PO DAILY 12/19/15 [History] Multivitamin [Multi-Day Vitamins] 1 tab PO DAILY 12/19/15 [History] Ranitidine HCl [Acid Psychologist Research Assistant] 150 mg PO Q48H 12/19/15 [History] Ursodiol 300 mg PO TID 12/19/15 [History] Guaifenesin [Guaifenesin ER] 600 mg PO BID 04/29/17 [History] 3 Allergy/AdvReac Type Severity Reaction Status Date / Time acetaminophen [From Vicodin] AdvReac See Verified 04/29/17 14:43 Comments Amoxicillin [From Augmentin] AdvReac See Verified 04/29/17 14:43 Comments azithromycin AdvReac See Verified 04/29/17 14:43 Comments clavulanic acid AdvReac See Verified 04/29/17 14:43 [From Augmentin] Comments codeine AdvReac See Verified 04/29/17 14:43 Comments hydrocodone [From Vicodin] AdvReac See Verified 04/29/17 14:43 Comments meperidine [From Demerol] AdvReac Hallucinati Verified 04/29/17 14:43 ng sertraline [From Zoloft] AdvReac See Verified 04/29/17 14:43 Comments sulfamethoxazole AdvReac See Verified 04/29/17 14:43 [From Bactrim] Comments trimethoprim [From Bactrim] AdvReac See Verified 04/29/17 14:43 Comments All Systems PM: A 10-system review of systems was performed and is negative for pertinent findings except as documented above in the HPI. - Constitutional Constitutional: fatigue, weakness, no anorexia, no chills, no fever(s), no night sweats, no weight loss - Cardiovascular Cardiovascular ROS IM: dyspnea on exertion, lightheadedness, no chest pain, no dyspnea, no edema, no irregular heart rhythm, no orthopnea, no palpitations, no paroxysmal nocturnal dyspnea, no syncope - Respiratory Respiratory: dyspnea on exertion, no cough - Gastrointestinal Gastrointestinal: melena, no abdominal pain, no constipation, no diarrhea, no hematemesis, no hematochezia, no nausea, no vomiting - Genitourinary Genitourinary: no change in urinary stream, no dysuria, no flank pain, no hematuria - Musculoskeletal Musculoskeletal ROS IM: no numbness, no tingling - Integumentary Integumentary IM: no rash, no unusual bruising - Neurological Neurological ROS: no confusion, no convulsions, no focal weakness, no numbness, no tingling, no tremor(s) - Constitutional Vitals: Temp Pulse Resp BP Pulse Ox 98.3 F 74 19 106/50 97 04/29/17 13:23 04/29/17 13:26 04/29/17 13:26 04/29/17 13:26 04/29/17 13:26 General appearance: Present: cooperative, A&O X 3, no acute distress, answers questions appropriately - Head Head exam: Present: atraumatic, normocephalic - Eye Eye exam: Present: PERRL, conjuntiva pink, sclera anicteric Pupils: Present: PERRL - Neck Neck exam general surgery: Present: supple, trachea midline. Absent: lymphadenopathy - Respiratory Respiratory exam: Present: CTAB. Absent: accessory muscle use, rales, rhonchi, wheezes - Cardiovascular Cardiovascular exam: Present: RRR, +S1, +S2. Absent: diastolic murmur, gallop, rubs, systolic murmur - GI/Abdominal GI/Abdominal exam: Present: normal bowel sounds, soft, no peritoneal signs. Absent: distended, firm, guarding, hepatomegaly, tenderness - Extremities Exam Extremities exam: Present: warm, radial pulses palpable and symmetrical. Absent : calf tenderness, cyanotic, pedal edema - Neurological Exam Neurological exam: Present: alert, oriented X3, no focal deficits. Absent: facial droop, speech deficit - Skin Skin exam: Present: dry, intact Internal Med - H&P Results - Labs CBC & Chem 7: 04/29/17 11:20 04/29/17 11:20 Labs: Short CBC 04/29/17 Range/Units 11:20 WBC 5.5 (4.3-11.1) K/mcL Hgb 6.9 L (11.5-15.4) g/dL Hct 22.2 L (35.3-44.9) % Plt Count 116 L (140-400) K/mcL Neutrophils # 4.0 (1.6-8.9) K/mcL BMP 04/29/17 11:20 Sodium 137 Potassium 4.2 Chloride 111 H Carbon Dioxide 21 L BUN 40 H Creatinine 0.83 Glucose 165 H Calcium 8.8 Cardiac Enzymes 04/29/17 Range/Units 11:20 Troponin I < 0.03 (< 0.04) ng/mL - EKG Data -: EKG Interpreted by Myself EKG shows normal: sinus rhythm <Raffaele Reynaga - Last Filed: 04/29/17 16:31> Date of Encounter: 04/29/17 Time of Encounter: 14:15 Internal Medicine - H&P: HPI History of present illness: Ms. Roy is a 76 year old female All Systems PM: A 10-system review of systems was performed and is negative for pertinent findings except as documented above in the HPI. - Constitutional Vitals: Temp Pulse Resp BP Pulse Ox 97.9 F 75 20 119/58 96 04/29/17 13:38 04/29/17 14:23 04/29/17 14:23 04/29/17 14:23 04/29/17 14:23 Internal Med - H&P Results - Labs CBC & Chem 7: 04/29/17 11:20 04/29/17 11:20 - Attending Attestation I examined this patient and my medical decision-making was reviewed with the Nurse Practitioner, Aj Weaver. I agree with the documented findings, disposition and treatment plan as described with any changes as documented below. 76 year old female patient with history of primary biliary cirrhosis, gastric varices, anemia presented to the ER with complaints of dark tarry stools. Does have generalized weakness and malaise. Denies any abdominal pain. On exam Patient has pallor, abdomen is nontender. Heart sounds are normal. Breath sounds are normal. Labs show hemoglobin of 6.9. Acute blood loss anemia due to GI bleed: Monitor blood counts. Transfuse PRBC. Consult GI. IV PPI and IV octreotide. Next Primary biliary cirrhosis: Continue ursodiol. Essential hypertension: Monitor blood pressure. Continue home medications. DVT prophylaxis with SCDs.
[2017-04-29] MEDS: Octreotide 400 MCG in 0.9 % Sodium Chloride 100 ML IVC SCH (14:20)
--- NOTE | 2017-04-29 14:50 | Gastroenterology Consult Note ---
<BasilioAkshat - Last Filed: 04/29/17 15:58> Date of Encounter: 04/29/17 Time of Encounter: 14:47 - Assessment and plan (1) Gastrointestinal bleeding Status: Acute Assessment and plan: Patient with black tarry stools, positive FOBT yesterday, and history of colitis in November 2016 Colonoscopy on 11/27/16 revealed internal hemorrhoids and congested mucosa of terminal ilium and colon. Pathology reports revealed no definitive diagnostic pathologic change. EGD on 11/26/16 revealed Grade III esophageal varices, portal HTN gastropathy Continue Protonix and Octreotide. Two large bore IVs in place. Continue IVF prn hypertension. Clear liquid diet, NPO after midnight. Anticipate EGD tomorrow. Qualifiers: GI bleed type/associated pathology: unspecified gastrointestinal hemorrhage type Qualified Code(s): K92.2 - Gastrointestinal hemorrhage, unspecified (2) Esophageal varices Status: Chronic Assessment and plan: EGD on 11/26/16 revealed Grade III esophageal varices, portal HTN gastropathy Continue Protonix and Octreotide. Anticipate EGD tomorrow Qualifiers: Esophageal varices type: secondary Esophageal varices bleeding: without bleeding Qualified Code(s): I85.10 - Secondary esophageal varices without bleeding (3) Anemia Status: Acute Assessment and plan: Symptomatic anemia with hemoglobin level of 6.9 on admission, baseline HGB around 12 Repeat hemoglobin level pending after 1 unit of PRBCs transfused in the ED. Continue to monitor HGB level and transfuse prn HGB <7 Qualifiers: Anemia type: other cause Other causes of anemia: acute posthemorrhagic Qualified Code(s): D62 - Acute posthemorrhagic anemia (4) Primary biliary cirrhosis Status: Chronic Assessment and plan: Continue home medications: Ursodiol 300mg PO TID (5) History of colitis Status: Chronic Assessment and plan: History of colitis in November 2016 Colonoscopy on 11/27/16 revealed congested mucosa of terminal ilium and colon. Pathology reports revealed no definitive diagnostic pathologic change. - Time Spent With Patient Total time spent is greater than 50% in coordination of care (as documented) at patient's floor/unit and/or counseling patient: GI History of Present Illness - Data of Consult Patient: known to practice within the last 3 years Consult date: 04/29/17 Requesting Physician: Abdulaziz Hsu - Consult Narrative Reason for consult: GI bleed History of present illness: Ms. Roy is a 76 year old female with a PMH of primary biliary cirrhosis, Grade III esophageal varices, and history of colitis in November 2016 who presented to the ED due to black tarry stools since this morning. Patient reports progressive weakness, fatigue, lightheadedness, and SOB with exertion for the past couple of weeks and was sent to the ED after a positive FOBT yesterday. She reports her HGB level was 8.5 two weeks ago and denies fever, chills, weight loss, night sweats, abdominal pain, rectal pain, hematuria, hematemesis, or easy bruising. 11/27/16 colonoscopy revealed internal hemorrhoids and congested mucosa of terminal ilium and colon. Pathology reports revealed no definitive diagnostic pathologic change. An EGD on 11/26/16 revealed Grade III esophageal varices, portal HTN gastropathy. Colonoscopy: 11/27/16 colonoscopy revealed congested mucosa of terminal ilium and colon EGD: 11/26/16 EGD revealed Grade III esophageal varices, portal HTN gastropathy Past Med Surg Social Fam HX - Past Medical History Medical history: cancer, hypertension, liver disease, thyroid disease Psychiatric history: no psych history - Past Surgical History Surgical History: breast surgery, cataract, hysterectomy - Social History Smoking Status: Former smoker Smokeless Tobacco Status: No Alcohol use: rarely Drug use: none - Family History Father Hx Family Cancer: Yes Mother Hx Family GI Disorders: Yes (liver disease) Sister Adopted: No Living Status: Hx Family Cardiac Disorders: Yes - Gastrointestinal Gastrointestinal: Present: change in bowel habits, hematochezia, melena. Absent : abdominal pain, bloating, coffee ground emesis, constipation, diarrhea, dyspepsia, hematemesis, nausea, vomiting - Constitutional Constitutional: fatigue, no anorexia, no weight gain, no weight loss - EENT Nose, mouth and throat: Absent: dysphagia, sore throat - Cardiovascular Cardiovascular ROS: Absent: chest pain, palpitations - Respiratory Respiratory IM: Present: dyspnea. Absent: cough, hemoptysis - Genitourinary Genitourinary: Absent: change in color, Urinary frequency - Neurological ROS Neurological GI: Present: dizziness, weakness. Absent: confusion, memory loss - Hematologic/Lymphatic Hematologic/Lymphatic pediatric: Present: as per HPI. Absent: easy bleeding - Musculoskeletal Musculoskeletal ROS GI: Absent: back pain, joint swelling - Integumentary Integumentary GI: Absent: jaundice, pruritis, rash - Psychiatric ROS Psychiatric GI: Absent: anxiety, depression - Endocrine Endocrine IM: Present: fatigue. Absent: cold intolerance, heat intolerance - Constitutional Vitals: Temp Pulse Resp BP Pulse Ox 98.3 F 75 20 119/58 96 04/29/17 13:23 04/29/17 14:23 04/29/17 14:23 04/29/17 14:23 04/29/17 14:23 General appearance: Present: cooperative, A&O X 3, pleasant, no acute distress, answers questions appropriately - Head Head exam: Present: atraumatic, normocephalic - Eye Eye exam: Present: normal appearance, sclera anicteric - Neck Neck exam general surgery: Present: normal inspection, trachea midline - Respiratory Respiratory exam: Present: CTAB - Cardiovascular Cardiovascular exam: Present: RRR, +S1, +S2 - GI/Abdominal GI/Abdominal exam: Present: normal bowel sounds, soft, no peritoneal signs. Absent: distended, guarding, tenderness - Rectal Rectal exam: Present: deferred - Extremities Exam Extremities exam: Present: warm. Absent: pedal edema, tenderness - Neurological Exam Neurological exam: Present: alert, oriented X3, no focal deficits. Absent: altered - Psychiatric Psychiatric exam: Present: normal affect, normal mood. Absent: anxious, depressed - Skin Skin exam: Present: dry, intact, pallor, warm Results - Labs CBC & Chem 7: 04/29/17 11:20 04/29/17 11:20 Labs: Last Result Calcium 8.8 mg/dL (8.6-10.3) 04/29/17 11:20 Troponin I < 0.03 ng/mL (< 0.04) 04/29/17 11:20 Entire Visit Hgb 6.9 g/dL (11.5-15.4) L 04/29/17 11:20 Hct 22.2 % (35.3-44.9) L 04/29/17 11:20 PT 11.5 Seconds (9.4-12.1) 04/29/17 11:20 - ABG ABG results: PT/INR, D-dimer PT 11.5 Seconds (9.4-12.1) 04/29/17 11:20 Consult Discharge Plan - Plan Instructions: Nadolol (By mouth), Omeprazole (By mouth), Gastrointestinal Bleeding (DC), Anemia (DC) Additional Instructions: F/up with PCP in 1-2 weeks F/up with GI in 2-3 weeks, for capsule endoscopy Referrals: Lanny Rogers, [employer] [Primary Care Provider] - Prescriptions: Nadolol [Corgard] 20 mg PO DAILY #30 tablet Omeprazole [PriLOSEC] 20 mg PO DAILY@0630 #30 capsule. <Jay Singh - Last Filed: 05/08/17 13:02> Date of Encounter: 04/29/17 - Time Spent With Patient Total time spent is greater than 50% in coordination of care (as documented) at patient's floor/unit and/or counseling patient: GI History of Present Illness - Data of Consult Requesting Physician: Stefany Cristobal MD - Consult Narrative History of present illness: Ms. Roy is a 76 year old female - Constitutional Vitals: Temp Pulse Resp BP Pulse Ox 97.6 F 63 15 120/69 94 05/02/17 13:04 05/02/17 13:04 05/02/17 13:04 05/02/17 13:04 05/02/17 13:04 Results - Labs CBC & Chem 7: 05/02/17 04:05 05/01/17 05:36 Labs: Last Result Calcium 8.4 mg/dL (8.6-10.3) L 05/01/17 05:36 Troponin I < 0.03 ng/mL (< 0.04) 04/29/17 11:20 Vitamin B12 > 1500 pg/mL (250-1100) H 05/01/17 10:21 Folate > 22.3 ng/mL (3.0-16.0) H 05/01/17 10:21 Entire Visit Hgb 8.1 g/dL (11.5-15.4) L D 05/02/17 04:05 Hct 25.9 % (35.3-44.9) L 05/02/17 04:05 PT 11.5 Seconds (9.4-12.1) 04/29/17 11:20 Total Bilirubin 0.6 mg/dL (0.3-1.0) 04/30/17 06:25 AST 53 Units/L (13-39) H 04/30/17 06:25 ALT 27 Units/L (7-52) 04/30/17 06:25 Folate > 22.3 ng/mL (3.0-16.0) H 05/01/17 10:21 - ABG ABG results: PT/INR, D-dimer PT 11.5 Seconds (9.4-12.1) 04/29/17 11:20 - Attending Attestation Patient with cirrhosis comes in with episodes of melena and anemia. Plan EGD in am after transfusion. I examined this patient and my medical decision-making was reviewed with the Resident Physician. I agree with the documented findings, disposition and treatment plan as described except to the extent set forth below.
[2017-04-29] MEDS: Pantoprazole 40 MG VIAL IVP SCH (16:51)
[2017-04-29] MEDS: 0.9 % Sodium Chloride 1,000 ML IVC SCH (16:51)
--- NOTE | 2017-04-29 19:00 | Electrocardiograph Report ---
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
[2017-04-29] MEDS: *HR* LORazepam 0.5 MG TABLET PO SCH (21:07)
[2017-04-29 23:04] LABS: Hematocrit 26.9 % (35.3-44.9); Hemoglobin 8.7 g/dL (11.5-15.4)
[2017-04-30 00:29] LABS: Hemoglobin 8.8 g/dL (11.5-15.4)
[2017-04-30] MEDS: Pantoprazole 40 MG VIAL IVP SCH ×2 (05:46→18:44)
[2017-04-30 07:51] LABS: Alanine Aminotransferase 27 Units/L (7-52); Albumin 2.8 g/dL (3.5-5.7); Alkaline Phosphatase 115 Units/L (34-104); Aspartate Amino Transferase 53 Units/L (13-39); BUN/Creatinine Ratio 34 (6-26); Bilirubin,Total 0.6 mg/dL (0.3-1.0); Blood Urea Nitrogen 28 mg/dL (8-23); Calcium 8.3 mg/dL (8.6-10.3); Carbon Dioxide 23 mEq/L (23-29); Chloride 113 mEq/L (98-107); Globulin 2.7 g/dL (2.4-3.5); Glucose 87 mg/dL (70-105); Osmolality,Calculated 293 (280-300); Potassium 4.6 mEq/L (3.5-5.1); Sodium 139 mEq/L (136-145); Total Protein 5.5 g/dL (6.4-8.9); eGFR For African Americans > 60 (> 60); eGFR For Non-African Americans > 60 (> 60)
[2017-04-30 08:23] LABS: Hemoglobin 9.5 g/dL (11.5-15.4); Immature Granulocytes % 0.3 % (0-4); Mean Corpuscular Volume 96.9 fL (83.0-100.0); Red Cell Distribution Width 15.7 % (11.5-14.5)
[2017-04-30 08:25] LABS: Basophils % 1.2 %; Eosinophils # 0.4 K/mcL (0.0-0.6); Hematocrit 30.8 % (35.3-44.9); Immature Platelets 3.9 % (1.1-6.1); Lymphocytes # 0.9 K/mcL (0.6-4.6); Lymphocytes % 26.9 %; Mean Corpuscular HGB Conc 30.8 g/dL (31.6-35.5); Mean Corpuscular Hemoglobin 29.9 pg (28.0-33.3); Mean Platelet Volume 10.2 fL (9.4-12.4); Monocytes # 0.4 K/mcL (0.0-1.3); Monocytes % 11.2 %; Neutrophils # 1.6 K/mcL (1.6-8.9); Red Blood Count 3.18 M/mcL (3.82-4.97); Segmented Neutrophils % 47.4 %
[2017-04-30 08:27] LABS: Hematocrit 29.5 % (35.3-44.9); Hemoglobin 9.5 g/dL (11.5-15.4)
[2017-04-30 08:31] LABS: Platelet Count 92 K/mcL (140-400)
[2017-04-30] MEDS ORDERED: CALCIUM CARBONATE PO SCH (09:00)
[2017-04-30] MEDS ORDERED: VITAMIN D3 PO SCH (09:00)
[2017-04-30] MEDS: Metoprolol XL (24 HR) Succ 50 MG TAB.ER.24H PO SCH (09:33)
[2017-04-30] MEDS: 0.9 % Sodium Chloride 1,000 ML IVC SCH (09:35)
--- NOTE | 2017-04-30 11:11 | Oncology Inp Consult Note ---
<Marcella Mendiola L - Last Filed: 04/30/17 16:47> Date of Encounter: 04/30/17 Time of Encounter: 11:11 Assessment and Plan (1) Primary biliary cirrhosis Status: Chronic Assessment and plan: As detailed in HPI, longstanding biliary cirrhosis, current treatment includes ursodiol. Follows with Dr. Figueroa with GI. (2) Gastrointestinal bleeding Status: Acute Assessment and plan: Presented with melena and hgb 6.9. Hgb 9.5 s/p 2 units PRBC. GI recommendations reviewed. She is planned for EGD today. 11/27/16 colonoscopy revealed internal hemorrhoids and congested mucosa of terminal ilium and colon. Pathology reports revealed no definitive diagnostic pathologic change. EGD on 11/26/16 revealed Grade III esophageal varices, portal HTN gastropathy. Currently on protonix and octreotide gtt Qualifiers: GI bleed type/associated pathology: unspecified gastrointestinal hemorrhage type Qualified Code(s): K92.2 - Gastrointestinal hemorrhage, unspecified (3) Pancytopenia Status: Acute Assessment and plan: Recently referred to Dr. Mark by PCP for pancytopenia. CT abdomen/pelvis in November 2016 did show Cirrhotic liver and upper abdominal varices, however no evidence of splenomagaly which would further explain her cytopenias. Leukopenia- Stable since 2013 therefore appears to be secondary to Ursodiol Thrombocytopenia-Stable and chronic since lab work dating back to 2013 as well, secondary to primary biliary cirrhosis Anemia- Acute, likely secondary to GIB Does not appear to have indication for bone marrow biopsy or etiology of bone marrow malignancy at this time. Per Dr. Faith, may cancel follow up with Dr. Mark given the above explanation which would explain pancytopenia etiology. Will also check B12 and folate for completeness. Oncology/hematology will otherwise sign off at this time, please feel free to contact for any further questions or concerns. (4) Pleural effusion Status: Acute Assessment and plan: Appears to be transudative and secondary to cirrhosis Cytology and bronchoscopy has been negative. Patient with Dr. Moran in pulmonology. Please refer to Dr. Faith's attestation below for further details - Data of Consult Requesting Physician: Stefany Cristobal MD Primary Care Provider: Lanny Rogers CNP - Consult Narrative Reason for consult: Pancytopenia, Acute GIB History of present illness: Ms. Roy is a 76 year old female with medical history significant for grade III esophageal varices, hypertension, hypothyroidism and primary biliary cirrhosis. She has a history of right breast cancer diagnosed in [address] Morales at [place] with bilateral mastectomy (elective left mastectomy), she did not receive chemotherapy or radiation. She has longstanding cirrhosis and diagnosed in 1981, she has been on ursodiol since around 1988. Etiology found to be of primary biliary cirrhosis. She reports she has previously tested negative for hepatitis. 11/27/16 colonoscopy revealed internal hemorrhoids and congested mucosa of terminal ilium and colon. Pathology reports revealed no definitive diagnostic pathologic change. EGD on 11/26/16 revealed Grade III esophageal varices, portal HTN gastropathy. She had a right center lobectomy in 2004 for presumed malignancy, pathology was negative according to patient. She has had recurrent pleural effusions since Fall 2016. Bronchoscopy performed 12/03/16 was of normal exam, BAL and thoracentesis cytology negative for malignant cells. She follows Dr. Moran with pulmonology. Most recently had second thoracentesis 03/18/17 with pathology negative for malignant cells. Etiology of recurrent pleural effusions unclear, Dr. Moran notes she may be pleuroscopy. She was recently referred to Dr. Mark by her PCP for further evaluation of her pancytopenia. Ms. Roy is a former smoker and quit in 1990 after smoking about 1-1 1/2 PPD for 35 years. She wears O2 at night which is new since prior admission and pneumonia. She denies fevers, chills, night sweats or dysphagia. She does report about a 10 pound weight loss since her admission with colitis in November 2016 but has gained about 5 pounds back since then. She relates increased stress at home, her has alzheimers and she helps to care for him, he has been in and out of nursing homes and has recently had a fall at home. She reports some decrease in appetite and weight loss due to this as well. She presented to the ER for melena and increased weakness which began the day of her presentation. She had known about a decrease in her hgb and had a negative stool occult blood test by her PCP the day before melena began. Past Med Surg Social Fam HX - Past Medical History Medical history: cancer, hypertension, liver disease, thyroid disease Psychiatric history: no psych history - Past Surgical History Surgical History: breast surgery, cataract, hysterectomy - Social History Smoking Status: Former smoker Smokeless Tobacco Status: No Alcohol use: rarely Drug use: none - Family History Father Hx Family Cancer: Yes Mother Hx Family GI Disorders: Yes (liver disease) Sister Adopted: No Living Status: Hx Family Cardiac Disorders: Yes Medications and Allergies Aspirin 81 mg PO Q48H 12/19/15 [History] Calcium Carbonate/Vitamin D3 [Calcium 600-Vit D3 200 Tablet] 1 tab PO DAILY 09/25 [History] Escitalopram [Lexapro] 15 mg PO DAILY 12/19/15 [History] LORazepam [Ativan] 0.5 - 1 mg PO HS 12/19/15 [History] Levothyroxine [Synthroid] 75 mcg PO DAILY 12/19/15 [History] Lisinopril 2.5 mg PO DAILY 12/19/15 [History] Metoprolol XL (24 HR) Succ [Toprol Xl] 50 mg PO DAILY 12/19/15 [History] Multivitamin [Multi-Day Vitamins] 1 tab PO DAILY 12/19/15 [History] Ranitidine HCl [Acid Inventory Control/Shipping Receiving] 150 mg PO Q48H 12/19/15 [History] Ursodiol 300 mg PO TID 12/19/15 [History] Guaifenesin [Guaifenesin ER] 600 mg PO BID 04/29/17 [History] 3 Allergy/AdvReac Type Severity Reaction Status Date / Time acetaminophen [From Vicodin] AdvReac See Verified 04/29/17 14:43 Comments Amoxicillin [From Augmentin] AdvReac See Verified 04/29/17 14:43 Comments azithromycin AdvReac See Verified 04/29/17 14:43 Comments clavulanic acid AdvReac See Verified 04/29/17 14:43 [From Augmentin] Comments codeine AdvReac See Verified 04/29/17 14:43 Comments hydrocodone [From Vicodin] AdvReac See Verified 04/29/17 14:43 Comments meperidine [From Demerol] AdvReac Hallucinati Verified 04/29/17 14:43 ng sertraline [From Zoloft] AdvReac See Verified 04/29/17 14:43 Comments sulfamethoxazole AdvReac See Verified 04/29/17 14:43 [From Bactrim] Comments trimethoprim [From Bactrim] AdvReac See Verified 04/29/17 14:43 Comments Constitutional: Present: as per HPI, anorexia, fatigue, weakness, weight loss. Absent: chills, fever(s), frequent falls Eyes: Absent: change in vision Nose, mouth and throat: Absent: dysphagia, mouth lesions Cardiovascular: Absent: chest pain, irregular heart rhythm, palpitations Respiratory: Present: dyspnea. Absent: cough Gastrointestinal: Present: as per HPI, melena. Absent: abdominal pain, hematemesis, hematochezia, nausea, vomiting Additional comments: denies melena since ER presentation Genitourinary: Absent: dysuria Musculoskeletal: Present: as per HPI, muscle weakness Integumentary: Absent: wounds Neurological: Absent: confusion, focal weakness, frequent falls Psychiatric: Present: as per HPI, change in appetite Hematologic/Lymphatic: Present: as per HPI Oncology - Exam - Constitutional Vitals: Temp Pulse Resp BP Pulse Ox 97.6 F 66 18 111/65 99 04/30/17 06:39 04/30/17 06:39 04/30/17 06:39 04/30/17 06:39 04/30/17 06:39 General appearance: cooperative, no acute distress, no febrile - Head Head exam: Present: atraumatic - Eye Eye exam: Present: PERRL - ENT ENT exam: Present: mucous membranes moist - Respiratory Respiratory exam: Present: CTAB. Absent: respiratory distress - Cardiovascular Cardiovascular exam: Present: RRR, +S1, +S2 - GI/Abdominal GI/Abdominal exam: Present: normal bowel sounds, soft. Absent: guarding, rebound, tenderness - Extremities Exam Extremities exam: Present: normal inspection. Absent: calf tenderness - Neurological Exam Neurological exam: Present: alert, oriented X3, no focal deficits, strengths equal and symetr throughout - Psychiatric Psychiatric exam: Present: normal affect, normal mood - Skin Skin exam: Present: dry, intact, pallor, warm Oncology - Results Labs: Short CBC 04/29/17 04/30/17 04/30/17 Range/Units 22:56 00:16 06:25 WBC (4.3-11.1) K/mcL Hgb 8.7 L D 8.8 L 9.5 L (11.5-15.4) g/dL Hct 26.9 L 27.0 L 29.5 L (35.3-44.9) % Plt Count (140-400) K/mcL Neutrophils # (1.6-8.9) K/mcL 04/30/17 Range/Units 06:25 WBC 3.4 L (4.3-11.1) K/mcL Hgb 9.5 L (11.5-15.4) g/dL Hct 30.8 L (35.3-44.9) % Plt Count 92 L (140-400) K/mcL Neutrophils # 1.6 (1.6-8.9) K/mcL BMP 04/30/17 06:25 Sodium 139 Potassium 4.6 Chloride 113 H Carbon Dioxide 23 BUN 28 H Creatinine 0.83 Glucose 87 Calcium 8.3 L Liver Function 04/30/17 Range/Units 06:25 Total Bilirubin 0.6 (0.3-1.0) mg/dL AST 53 H (13-39) Units/L ALT 27 (7-52) Units/L Alkaline Phosphatase 115 H (34-104) Units/L Albumin 2.8 L (3.5-5.7) g/dL Consult Discharge Plan - Plan Referrals: Lanny Rogers CNP [Primary Care Provider] - <MarcellJn jane - Last Filed: 05/01/17 14:53> Date of Encounter: 04/30/17 - Data of Consult Requesting Physician: Stefany Cristobal MD Primary Care Provider: Lanny Rogers CNP - Consult Narrative History of present illness: Ms. Roy is a 76 year old female Oncology - Exam - Constitutional Vitals: Temp Pulse Resp BP Pulse Ox 97.5 F L 74 15 95/51 95 05/01/17 10:53 05/01/17 10:53 05/01/17 10:53 05/01/17 10:53 05/01/17 10:53 Oncology - Results Labs: Short CBC 05/01/17 Range/Units 00:45 WBC 5.3 D (4.3-11.1) K/mcL Hgb 10.2 L (11.5-15.4) g/dL Hct 31.8 L (35.3-44.9) % Plt Count 128 L (140-400) K/mcL Neutrophils # 4.0 (1.6-8.9) K/mcL BMP 05/01/17 05:36 Sodium 135 L Potassium 4.5 Chloride 109 H Carbon Dioxide 18 L BUN 24 H Creatinine 0.94 Glucose 207 H Calcium 8.4 L - Attending Attestation Seen and examined patient and agree with assessment and plan. Leukopenia is long standing and likely from ursodiol; thrombocytopenia is long standing and is related to decreased tpo production related to her cirrhosis; anemia is acute from UGI bleed likely from varices related to portal hypertensions from cirrhosis. No need for continued hematology f/u.
[2017-04-30 13:03] LABS: Hematocrit 29.4 % (35.3-44.9); Hemoglobin 9.4 g/dL (11.5-15.4)
[2017-04-30] MEDS ORDERED: Dextrose Gel 15 GM/37.5 ML TUBE PO PRN ×2 (13:17)
[2017-04-30] MEDS ORDERED: D5% in Water 1,000 ML IVC PRN (13:17)
[2017-04-30] MEDS ORDERED: *HR* Dextrose 50 % in Water (Syg) 50 ML SYRINGE IVP PRN (13:17)
--- NOTE | 2017-04-30 14:57 | Internal Med Progress Note ---
Date of Encounter: 04/30/17 Time of Encounter: 09:05 - Assessment and plan (1) Anemia Current Visit: Yes Status: Acute Assessment and plan: Patient's hemoglobin until around 6 months ago was noted to be 11-12. Hemoglobin was 8.5, 2 weeks prior to this admission, now presented with hemoglobin of 6.9. Status post 2 units PRBC transfusion, hemoglobin improved to 9.5, now stable. Likely due to upper GI bleed. Gastroenterology consulted, possible EGD today. Continue to monitor hemoglobin closely. Oncology has been consulted for anemia and thrombocytopenia, will f/up recommendations; Qualifiers: Anemia type: other cause Other causes of anemia: acute posthemorrhagic Qualified Code(s): D62 - Acute posthemorrhagic anemia (2) Gastrointestinal bleeding Current Visit: Yes Status: Acute Assessment and plan: EGD from November 2016 showed portal hypertensive gastropathy, grade 3 esophageal viruses. She does have a history of primary biliary cirrhosis. Case discussed with gastroenterology, recommended IV PPI and octreotide drip. Plan for possible EGD today. Continue bowel rest, IV hydration and supportive care. Qualifiers: GI bleed type/associated pathology: unspecified gastrointestinal hemorrhage type Qualified Code(s): K92.2 - Gastrointestinal hemorrhage, unspecified (3) Essential hypertension Current Visit: Yes Status: Chronic (4) Hypothyroidism Current Visit: Yes Status: Chronic Qualifiers: Hypothyroidism type: unspecified Qualified Code(s): E03.9 - Hypothyroidism , unspecified (5) Primary biliary cirrhosis Current Visit: Yes Status: Chronic Assessment and plan: Follows with GI as outpatient. - Subjective Interval history: Reports feeling better. Presented with his illness, generalized weakness and fatigue, melena. No further bleeding or bowel movements since admission. Awaiting EGD today. - Constitutional Vitals: Temp Pulse Resp BP Pulse Ox 97.7 F 67 18 113/67 95 04/30/17 14:25 04/30/17 14:25 04/30/17 14:25 04/30/17 14:25 04/30/17 14:25 General appearance: Present: cooperative, A&O X 3, answers questions appropriately - Respiratory Respiratory exam: Present: CTAB. Absent: accessory muscle use, rales, rhonchi, wheezes - Cardiovascular Cardiovascular exam: Present: RRR, +S1, +S2. Absent: diastolic murmur, gallop, rubs, systolic murmur - GI/Abdominal GI/Abdominal exam: Present: normal bowel sounds, soft, no peritoneal signs. Absent: distended, tenderness - Extremities Exam Extremities exam: Present: pedal edema (Trace dependent bipedal edema), warm, radial pulses palpable and symmetrical. Absent: calf tenderness, cyanotic - Neurological Exam Neurological exam: Present: CN II-XII intact, oriented X3, no focal deficits. Absent: pronater drift, facial droop, speech deficit - Skin Skin exam: Present: dry, intact Internal Medicine: Result - Labs CBC & Chem 7: 04/30/17 12:36 04/30/17 06:25 Labs: Short CBC 04/29/17 04/30/17 04/30/17 Range/Units 22:56 00:16 06:25 WBC (4.3-11.1) K/mcL Hgb 8.7 L D 8.8 L 9.5 L (11.5-15.4) g/dL Hct 26.9 L 27.0 L 29.5 L (35.3-44.9) % Plt Count (140-400) K/mcL Neutrophils # (1.6-8.9) K/mcL 04/30/17 04/30/17 Range/Units 06:25 12:36 WBC 3.4 L (4.3-11.1) K/mcL Hgb 9.5 L 9.4 L (11.5-15.4) g/dL Hct 30.8 L 29.4 L (35.3-44.9) % Plt Count 92 L (140-400) K/mcL Neutrophils # 1.6 (1.6-8.9) K/mcL BMP 04/30/17 06:25 Sodium 139 Potassium 4.6 Chloride 113 H Carbon Dioxide 23 BUN 28 H Creatinine 0.83 Glucose 87 Calcium 8.3 L Liver Function 04/30/17 Range/Units 06:25 Total Bilirubin 0.6 (0.3-1.0) mg/dL AST 53 H (13-39) Units/L ALT 27 (7-52) Units/L Alkaline Phosphatase 115 H (34-104) Units/L Albumin 2.8 L (3.5-5.7) g/dL - ABG Interpretation ABG results: PT/INR, D-dimer PT 11.5 Seconds (9.4-12.1) 04/29/17 11:20 Consult Discharge Plan - Plan Referrals: Lanny Rogers, HR ADVISOR [Primary Care Provider] -
--- NOTE | 2017-04-30 15:28 | Anesthesia Evaluation PreOp ---
Date of Encounter: 04/30/17 Time of Encounter: 15:45 - Past History Planned Operation: EGD Cardiac History: HTN, Other (Anemia) Pulmonary History: Former smoker CULVERT INSTALLER History: Denies Any Significant HX Other Medical History: Hepatic (Biliary Cirrhosis), Thyroid Anesthesia History: No Prior Anesthetic Complications Alcohol Use: rarely Drug use: none Medications and Allergies Aspirin 81 mg PO Q48H 12/19/15 [History] Calcium Carbonate/Vitamin D3 [Calcium 600-Vit D3 200 Tablet] 1 tab PO DAILY 09/25 [History] Escitalopram [Lexapro] 15 mg PO DAILY 12/19/15 [History] LORazepam [Ativan] 0.5 - 1 mg PO HS 12/19/15 [History] Levothyroxine [Synthroid] 75 mcg PO DAILY 12/19/15 [History] Lisinopril 2.5 mg PO DAILY 12/19/15 [History] Metoprolol XL (24 HR) Succ [Toprol Xl] 50 mg PO DAILY 12/19/15 [History] Multivitamin [Multi-Day Vitamins] 1 tab PO DAILY 12/19/15 [History] Ranitidine HCl [Acid Pedicab Driver] 150 mg PO Q48H 12/19/15 [History] Ursodiol 300 mg PO TID 12/19/15 [History] Guaifenesin [Guaifenesin ER] 600 mg PO BID 04/29/17 [History] 3 Allergy/AdvReac Type Severity Reaction Status Date / Time acetaminophen [From Vicodin] AdvReac See Verified 04/29/17 14:43 Comments Amoxicillin [From Augmentin] AdvReac See Verified 04/29/17 14:43 Comments azithromycin AdvReac See Verified 04/29/17 14:43 Comments clavulanic acid AdvReac See Verified 04/29/17 14:43 [From Augmentin] Comments codeine AdvReac See Verified 04/29/17 14:43 Comments hydrocodone [From Vicodin] AdvReac See Verified 04/29/17 14:43 Comments meperidine [From Demerol] AdvReac Hallucinati Verified 04/29/17 14:43 ng sertraline [From Zoloft] AdvReac See Verified 04/29/17 14:43 Comments sulfamethoxazole AdvReac See Verified 04/29/17 14:43 [From Bactrim] Comments trimethoprim [From Bactrim] AdvReac See Verified 04/29/17 14:43 Comments - Meds/Allergy Pre-op Review Medications Reviewed: Yes Allergies Reviewed: Yes Beta Blockers on Current Med List: No Anesthesia Results - Labs 04/30/17 12:36 04/30/17 06:25 - Imaging EKG: report reviewed (SR) Anesthesia Exam Vital Signs/O2 Sat/Glucose, Most Current Temp Pulse Resp BP Pulse Ox 04/30/17 14:25 97.7 F 67 18 113/67 95 04/30/17 11:59 97.3 F L 90 18 109/74 92 Height: 5'0 Weight: 131 lbs NPO (# of Hours): MN Pain Scale: 0 - HEENT Pupil (Motor): Pupils equal, EOMI Mallampati: II Teeth: Normal Oral Opening: Greater than 3 - CULVERT INSTALLER LOC: Oriented CULVERT INSTALLER Motor: Normal RUE, Normal LUE, Normal RLE, Normal LLE, Normal Face CULVERT INSTALLER Sensory: Normal: RUE, LUE, RLE, LLE, Face - Cardiac Rhythm: Regular Murmur: None JVD: No Carotid Bruit: No - Pulmonary Breath Sounds: bilateral Clear Respiratory Effort: Symmetrical Anesthesia Assess/Plan ASA Score: 3 (HTN Cirrhosis) Modified Furman Scale for Level of Consciousness: Cooperative, oriented, and tranquil Anesthetic Plan: MAC Monitoring Plan: Standard Monitors Recovery Plan: Other (Discussed MAC, agrees to proceed)
[2017-04-30] MEDS ORDERED: *HR* FentaNYL (PF) 100 MCG/2 ML VIAL ONE (18:34)
[2017-04-30] MEDS ORDERED: *HR* Midazolam HCl 5 MG/5 ML VIAL IVP ONE (18:34)
[2017-04-30] MEDS ORDERED: *HR* Promethazine 25 MG/ML VIAL ONE (18:35)
[2017-04-30] MEDS ORDERED: *HR* Promethazine 25 MG/ML VIAL IVP ONE (18:41)
[2017-04-30] MEDS ORDERED: *HR* Midazolam HCl 2 MG/2 ML VIAL IVP ONE (18:41)
[2017-04-30] MEDS ORDERED: *HR* FentaNYL (PF) 100 MCG/2 ML VIAL IVP ONE (18:41)
[2017-04-30] MEDS ORDERED: Tetracaine/Benzocaine/Butamben 200MG/SPRAY (100SPY/BOT) MM ONE (18:41)
[2017-04-30] MEDS ORDERED: Polyethylene Glycol 3350 255 GM POWDER PO ONE (19:02)
[2017-04-30] MEDS: *HR* LORazepam 0.5 MG TABLET PO SCH (20:14)
[2017-04-30] MEDS: Octreotide 400 MCG in 0.9 % Sodium Chloride 100 ML IVC SCH (20:15)
[2017-05-01] MEDS ORDERED: Ondansetron 4 MG/2 ML VIAL IVP PRN (00:57)
[2017-05-01] MEDS ORDERED: Ondansetron 4 MG/2 ML VIAL ONE (01:02)
[2017-05-01] MEDS: Octreotide 400 MCG in 0.9 % Sodium Chloride 100 ML IVC SCH ×3 (01:05→09:13)
[2017-05-01 01:19] LABS: Basophils # 0.1 K/mcL (0.0-0.2); Basophils % 0.9 %; Eosinophils # 0.1 K/mcL (0.0-0.6); Eosinophils % 2.7 %; Hematocrit 31.8 % (35.3-44.9); Hemoglobin 10.2 g/dL (11.5-15.4); Immature Granulocytes % 0.4 % (0-4); Immature Platelets 3.2 % (1.1-6.1); Lymphocytes # 0.9 K/mcL (0.6-4.6); Lymphocytes % 16.5 %; Mean Corpuscular HGB Conc 32.1 g/dL (31.6-35.5); Mean Corpuscular Volume 93.5 fL (83.0-100.0); Mean Platelet Volume 9.6 fL (9.4-12.4); Monocytes # 0.3 K/mcL (0.0-1.3); Monocytes % 4.7 %; Platelet Count 128 K/mcL (140-400); Red Cell Distribution Width 15.5 % (11.5-14.5); Segmented Neutrophils % 74.8 %
[2017-05-01] MEDS: Pantoprazole 40 MG VIAL IVP SCH (05:22)
[2017-05-01 06:02] LABS: BUN/Creatinine Ratio 26 (6-26); Blood Urea Nitrogen 24 mg/dL (8-23); Calcium 8.4 mg/dL (8.6-10.3); Carbon Dioxide 18 mEq/L (23-29); Chloride 109 mEq/L (98-107); Glucose 207 mg/dL (70-105); Osmolality,Calculated 290 (280-300); Potassium 4.5 mEq/L (3.5-5.1); Sodium 135 mEq/L (136-145); eGFR For African Americans > 60 (> 60); eGFR For Non-African Americans 58 (> 60)
[2017-05-01] MEDS: Metoprolol XL (24 HR) Succ 50 MG TAB.ER.24H PO SCH (09:16)
[2017-05-01] MEDS ORDERED: *HR* LORazepam 0.5 MG TABLET PO ONE (09:50)
[2017-05-01 11:53] LABS: Folate > 22.3 ng/mL (3.0-16.0); Vitamin B12 > 1500 pg/mL (250-1100)
--- NOTE | 2017-05-01 14:24 | Internal Med Progress Note ---
Date of Encounter: 05/01/17 Time of Encounter: 10:10 - Assessment and plan (1) Anemia Current Visit: Yes Status: Acute Assessment and plan: Status post 2 units PRBC transfusion, hemoglobin now stable, 10.2 today. Continue to monitor closely. Oncology consult appreciated. Serum vitamin B12 and folate levels noted to be higher than normal. Serum iron is low with normal ferritin. Thrombocytopenia likely related to primary biliary cirrhosis. Recommend no further testing. Qualifiers: Anemia type: other cause Other causes of anemia: acute posthemorrhagic Qualified Code(s): D62 - Acute posthemorrhagic anemia (2) Gastrointestinal bleeding Current Visit: Yes Status: Acute Assessment and plan: She does have a history of primary biliary cirrhosis. GI on board. Underwent EGD yesterday, which showed large esophageal varices status post banding, in completely eradicated. Portal hypertensive gastropathy. Case discussed with gastroenterology, discontinue IV PPI and octreotide drip. Change metoprolol to nadolol. Plan for colonoscopy today. Continue bowel rest, IV hydration and supportive care. Qualifiers: GI bleed type/associated pathology: unspecified gastrointestinal hemorrhage type Qualified Code(s): K92.2 - Gastrointestinal hemorrhage, unspecified (3) Essential hypertension Current Visit: Yes Status: Chronic Assessment and plan: Blood pressure noted to be low normal. Discontinue lisinopril. Continue beta kelley. (4) Hypothyroidism Current Visit: Yes Status: Chronic Qualifiers: Hypothyroidism type: unspecified Qualified Code(s): E03.9 - Hypothyroidism , unspecified (5) Primary biliary cirrhosis Current Visit: Yes Status: Chronic Assessment and plan: Follows with GI as outpatient. Start nonselective beta kelley- Nadolol; - Subjective Interval history: Reports weakness and fatigue today; also noted to have restless legs and anxiety ; awaiting colonoscopy; no nausea, vomiting, abdominal pain; - Constitutional Vitals: Temp Pulse Resp BP Pulse Ox 97.5 F L 74 15 95/51 95 05/01/17 10:53 05/01/17 10:53 05/01/17 10:53 05/01/17 10:53 05/01/17 10:53 General appearance: Present: cooperative, mild distress, A&O X 3, answers questions appropriately - Respiratory Respiratory exam: Present: CTAB. Absent: accessory muscle use, rales, rhonchi, wheezes - Cardiovascular Cardiovascular exam: Present: RRR, +S1, +S2. Absent: diastolic murmur, gallop, rubs, systolic murmur - GI/Abdominal GI/Abdominal exam: Present: normal bowel sounds, soft, no peritoneal signs. Absent: distended, tenderness - Extremities Exam Extremities exam: Present: full ROM, warm, radial pulses palpable and symmetrical. Absent: calf tenderness, cyanotic, pedal edema - Neurological Exam Neurological exam: Present: CN II-XII intact, oriented X3, no focal deficits. Absent: pronater drift, facial droop, speech deficit Internal Medicine: Result - Labs CBC & Chem 7: 05/01/17 00:45 05/01/17 05:36 Labs: Short CBC 05/01/17 Range/Units 00:45 WBC 5.3 D (4.3-11.1) K/mcL Hgb 10.2 L (11.5-15.4) g/dL Hct 31.8 L (35.3-44.9) % Plt Count 128 L (140-400) K/mcL Neutrophils # 4.0 (1.6-8.9) K/mcL BMP 05/01/17 05:36 Sodium 135 L Potassium 4.5 Chloride 109 H Carbon Dioxide 18 L BUN 24 H Creatinine 0.94 Glucose 207 H Calcium 8.4 L - ABG Interpretation ABG results: PT/INR, D-dimer PT 11.5 Seconds (9.4-12.1) 04/29/17 11:20 Consult Discharge Plan - Plan Referrals: Lanny Rogers, ADVERTISING ASSISTANT [Primary Care Provider] -
[2017-05-01] MEDS ORDERED: D5% in 0.9% NACL 1,000 ML IVC SCH (14:45)
[2017-05-01] MEDS ORDERED: *HR* Midazolam HCl 5 MG/5 ML VIAL IVP ONE (17:16)
[2017-05-01] MEDS ORDERED: *HR* FentaNYL (PF) 100 MCG/2 ML VIAL ONE (17:16)
[2017-05-01] MEDS ORDERED: *HR* FentaNYL (PF) 100 MCG/2 ML VIAL IVP ONE (17:26)
[2017-05-01] MEDS ORDERED: *HR* Midazolam HCl 2 MG/2 ML VIAL IVP ONE (17:26)
[2017-05-01] MEDS ORDERED: Simethicone 40 MG/0.6 ML MLS IR ONE (17:26)
[2017-05-01] MEDS: *HR* LORazepam 0.5 MG TABLET PO SCH (21:08)
[2017-05-01] MEDS ORDERED: Ibuprofen 600 MG TABLET PO PRN (21:12)
[2017-05-02 05:21] LABS: Immature Granulocytes % 0.5 % (0-4)
[2017-05-02 05:23] LABS: Basophils % 0.7 %; Eosinophils # 0.3 K/mcL (0.0-0.6); Eosinophils % 6.7 %; Hematocrit 25.9 % (35.3-44.9); Hemoglobin 8.1 g/dL (11.5-15.4); Immature Platelets 4.3 % (1.1-6.1); Lymphocytes # 0.9 K/mcL (0.6-4.6); Lymphocytes % 21.7 %; Mean Corpuscular HGB Conc 31.3 g/dL (31.6-35.5); Mean Corpuscular Hemoglobin 30.1 pg (28.0-33.3); Mean Corpuscular Volume 96.3 fL (83.0-100.0); Mean Platelet Volume 10.3 fL (9.4-12.4); Monocytes # 0.4 K/mcL (0.0-1.3); Monocytes % 9.7 %; Neutrophils # 2.6 K/mcL (1.6-8.9); Nucleated Red Blood Cells 0.5 /100 WBC (0); Red Blood Count 2.69 M/mcL (3.82-4.97); Segmented Neutrophils % 60.7 %
[2017-05-02 05:36] LABS: Platelet Count 95 K/mcL (140-400)
--- NOTE | 2017-05-02 09:58 | Gastroenterology Progress Note ---
<Akshat Richmond - Last Filed: 05/02/17 11:24> Date of Encounter: 05/02/17 Time of Encounter: 09:51 - Assessment and plan (1) Gastrointestinal bleeding Status: Acute Assessment and plan: Patient with black tarry stools, positive FOBT on admission, and history of colitis in November 2016 Colonoscopy on 05/02/17 revealed internal hemorrhoids and multiple colonic angioectasias treated with argon plasma coagulation. Recommend outpatient capsule endoscopy study to further evaluate source of GI bleed Qualifiers: GI bleed type/associated pathology: unspecified gastrointestinal hemorrhage type Qualified Code(s): K92.2 - Gastrointestinal hemorrhage, unspecified (2) Esophageal varices Status: Chronic Assessment and plan: EGD on 04/30/17 revealed portal HTN gastropathy and large > 5mm esophageal varices which were banded Continue Prilosec 20mg PO daily Qualifiers: Esophageal varices type: secondary Esophageal varices bleeding: without bleeding Qualified Code(s): I85.10 - Secondary esophageal varices without bleeding (3) Anemia Status: Acute Assessment and plan: Symptomatic anemia with hemoglobin level of 6.9 on admission, baseline HGB around 12 Iron deficiency anemia secondary to chronic blood loss Continue to monitor HGB level as an outpatient Qualifiers: Anemia type: other cause Other causes of anemia: acute posthemorrhagic Qualified Code(s): D62 - Acute posthemorrhagic anemia (4) Primary biliary cirrhosis Status: Chronic Assessment and plan: Continue home medications: Ursodiol 300mg PO TID - Time Spent With Patient Total time spent is greater than 50% in coordination of care (as documented) at patient's floor/unit and/or counseling patient: - Subjective Interval history: Patient seen and examined ambulating in room this AM without difficulty. She is tolerating PO intake and denies abdominal pain, N/V/D, or melena. HGB remains stable. - Constitutional Vitals: Temp Pulse Resp BP Pulse Ox 97.9 F 63 19 98/60 96 05/02/17 06:39 05/02/17 06:39 05/02/17 06:39 05/02/17 06:39 05/02/17 06:39 General appearance: Present: cooperative, A&O X 3, pleasant, no acute distress, answers questions appropriately - Head Head exam: Present: atraumatic, normocephalic - Eye Eye exam: Present: normal appearance, sclera anicteric - Neck Neck exam general surgery: Present: normal inspection, trachea midline - Respiratory Respiratory exam: Present: CTAB - Cardiovascular Cardiovascular exam: Present: RRR, +S1, +S2 - GI/Abdominal GI/Abdominal exam: Present: normal bowel sounds, soft, no peritoneal signs. Absent: tenderness - Rectal Rectal exam: Present: deferred - Extremities Exam Extremities exam: Present: normal inspection, warm - Neurological Exam Neurological exam: Present: no focal deficits - Psychiatric Psychiatric exam: Present: normal affect, normal mood - Skin Skin exam: Present: dry, intact, normal color, warm Results - Labs CBC & Chem 7: 05/02/17 04:05 05/01/17 05:36 Labs: Last Result Calcium 8.4 mg/dL (8.6-10.3) L 05/01/17 05:36 Troponin I < 0.03 ng/mL (< 0.04) 04/29/17 11:20 Vitamin B12 > 1500 pg/mL (250-1100) H 05/01/17 10:21 Folate > 22.3 ng/mL (3.0-16.0) H 05/01/17 10:21 Entire Visit Hgb 8.1 g/dL (11.5-15.4) L D 05/02/17 04:05 Hct 25.9 % (35.3-44.9) L 05/02/17 04:05 PT 11.5 Seconds (9.4-12.1) 04/29/17 11:20 Total Bilirubin 0.6 mg/dL (0.3-1.0) 04/30/17 06:25 AST 53 Units/L (13-39) H 04/30/17 06:25 ALT 27 Units/L (7-52) 04/30/17 06:25 Folate > 22.3 ng/mL (3.0-16.0) H 05/01/17 10:21 - ABG ABG results: PT/INR, D-dimer PT 11.5 Seconds (9.4-12.1) 04/29/17 11:20 Consult Discharge Plan - Plan Instructions: Nadolol (By mouth), Omeprazole (By mouth), Gastrointestinal Bleeding (DC), Anemia (DC) Additional Instructions: F/up with PCP in 1-2 weeks F/up with GI in 2-3 weeks, for capsule endoscopy Referrals: Lanny Rogers, PLASTIC SURGERY NURSE [Primary Care Provider] - <Jay Singh - Last Filed: 05/12/17 12:41> Date of Encounter: 05/02/17 - Time Spent With Patient Total time spent is greater than 50% in coordination of care (as documented) at patient's floor/unit and/or counseling patient: - Constitutional Vitals: Temp Pulse Resp BP Pulse Ox 97.6 F 63 15 120/69 94 05/02/17 13:04 05/02/17 13:04 05/02/17 13:04 05/02/17 13:04 05/02/17 13:04 Results - Labs CBC & Chem 7: 05/02/17 04:05 05/01/17 05:36 Labs: Last Result Calcium 8.4 mg/dL (8.6-10.3) L 05/01/17 05:36 Troponin I < 0.03 ng/mL (< 0.04) 04/29/17 11:20 Vitamin B12 > 1500 pg/mL (250-1100) H 05/01/17 10:21 Folate > 22.3 ng/mL (3.0-16.0) H 05/01/17 10:21 Entire Visit Hgb 8.1 g/dL (11.5-15.4) L D 05/02/17 04:05 Hct 25.9 % (35.3-44.9) L 05/02/17 04:05 PT 11.5 Seconds (9.4-12.1) 04/29/17 11:20 Total Bilirubin 0.6 mg/dL (0.3-1.0) 04/30/17 06:25 AST 53 Units/L (13-39) H 04/30/17 06:25 ALT 27 Units/L (7-52) 04/30/17 06:25 Folate > 22.3 ng/mL (3.0-16.0) H 05/01/17 10:21 - ABG ABG results: PT/INR, D-dimer PT 11.5 Seconds (9.4-12.1) 04/29/17 11:20 - Attending Attestation I examined this patient and my medical decision-making was reviewed with the Resident Physician. I agree with the documented findings, disposition and treatment plan as described except to the extent set forth below.
[2017-05-02] MEDS ORDERED: 0.9 % Sodium Chloride 250 ML ONE (10:08)
--- NOTE | 2017-05-02 11:42 | Discharge Summary ---
- NOTES TO OUTPATIENT PROVIDER Notes to Outpatient Provider: F/up biopsies from EGD and colonoscopy Date of Encounter: 05/02/17 Time of Encounter: 09:00 - Discharge Diagnosis (1) Anemia Priority: Primary Status: Acute Qualifiers: Anemia type: other cause Other causes of anemia: acute posthemorrhagic Qualified Code(s): D62 - Acute posthemorrhagic anemia (2) Gastrointestinal bleeding Priority: Primary Status: Acute Qualifiers: GI bleed type/associated pathology: angiodysplasia of stomach and duodenum Qualified Code(s): K31.811 - Angiodysplasia of stomach and duodenum with bleeding (3) Essential hypertension Priority: Secondary Status: Chronic (4) Hypothyroidism Priority: Secondary Status: Chronic Qualifiers: Hypothyroidism type: unspecified Qualified Code(s): E03.9 - Hypothyroidism , unspecified (5) Primary biliary cirrhosis Priority: Secondary Status: Chronic Hospital course: Ms. Roy is a 76 year old female with history of esophageal viruses and primary biliary cirrhosis, who presents with complaints of melena, exertional dyspnea and fatigue. Patient was noted to have acute on chronic anemia with hemoglobin at 6.9 at admission. She received a total of 3 units PRBC during this admission. Gastroenterology was consulted, patient received EGD and colonoscopy. EGD showed large varices in the lower third of esophagus, 6 bands were successfully placed. Colonoscopy showed multiple scattered angiectasia status post argon photocoagulation, internal hemorrhoids. Oncology was consulted due to anemia and thrombocytopenia, which is likely due to primary biliary cirrhosis. Serum vitamin B12 and folate levels noted to be higher than normal. Serum iron is low with normal ferritin. Recommended no further testing. Patient is now medically stable for discharge with outpatient GI follow-up. Capsule endoscopy as outpatient is recommended. Discharge discussed with: patient - Time Spent with Patient Total time spent providing and/or coordinating discharge services: Greater than 30 minutes (45 min) - Discharge Medications Prescriptions: Nadolol [Corgard] 20 mg PO DAILY #30 tablet Omeprazole [PriLOSEC] 20 mg PO DAILY@0630 #30 capsule[address] Baumann Medications: Calcium Carbonate/Vitamin D3 [Calcium 600-Vit D3 200 Tablet] 1 tab PO DAILY 09/25 [History] Escitalopram [Lexapro] 15 mg PO DAILY 12/19/15 [History] LORazepam [Ativan] 0.5 - 1 mg PO HS 12/19/15 [History] Levothyroxine [Synthroid] 75 mcg PO DAILY 12/19/15 [History] Multivitamin [Multi-Day Vitamins] 1 tab PO DAILY 12/19/15 [History] Ursodiol 300 mg PO TID 12/19/15 [History] Guaifenesin [Guaifenesin ER] 600 mg PO BID 04/29/17 [History] Nadolol [Corgard] 20 mg PO DAILY #30 tablet 05/02/17 [Rx] Omeprazole [PriLOSEC] 20 mg PO DAILY@0630 #30 capsule. 05/02/17 [Rx] Allergies/Adverse Reactions: 3 Allergy/AdvReac Type Severity Reaction Status Date / Time acetaminophen [From Vicodin] AdvReac See Verified 04/29/17 14:43 Comments Amoxicillin [From Augmentin] AdvReac See Verified 04/29/17 14:43 Comments azithromycin AdvReac See Verified 04/29/17 14:43 Comments clavulanic acid AdvReac See Verified 04/29/17 14:43 [From Augmentin] Comments codeine AdvReac See Verified 04/29/17 14:43 Comments hydrocodone [From Vicodin] AdvReac See Verified 04/29/17 14:43 Comments meperidine [From Demerol] AdvReac Hallucinati Verified 04/29/17 14:43 ng sertraline [From Zoloft] AdvReac See Verified 04/29/17 14:43 Comments sulfamethoxazole AdvReac See Verified 04/29/17 14:43 [From Bactrim] Comments trimethoprim [From Bactrim] AdvReac See Verified 04/29/17 14:43 Comments Date of admission: 04/29/17 14:28 Primary care physician: Lanny Rogers, ENROBING MACHINE FEEDER Discharging clinician: Stefany Cristobal Anticipated date of discharge: 05/02/17 - Constitutional Vitals: Temp Pulse Resp BP Pulse Ox 97.8 F 62 15 114/56 96 05/02/17 10:36 05/02/17 10:36 05/02/17 10:36 05/02/17 10:36 05/02/17 06:39 General appearance: Present: cooperative, A&O X 3, answers questions appropriately - Cardiovascular Cardiovascular exam: Present: RRR, +S1, +S2. Absent: diastolic murmur, gallop, rubs, systolic murmur - Patient Status Disposition: Home, Self-Care Condition: Good Functional capacity at discharge: independent ambulation Overall status at discharge: patient is progressing back to baseline - Discharge Instructions Instructions: Nadolol (By mouth), Omeprazole (By mouth), Gastrointestinal Bleeding (DC), Anemia (DC) Follow Up With: Lanny Rogers, ENROBING MACHINE FEEDER [Primary Care Provider] - Additional Instructions: F/up with PCP in 1-2 weeks F/up with GI in 2-3 weeks, for capsule endoscopy - Diet and Activity Activity: increase activity as tolerated, wear oxygen at night Diet: low fat, low cholesterol, low salt diet
[2017-05-02 13:06] VITALS: BP 120/69
== END 2017-05-02 14:53 | disposition home or self-care (01) | DRG 432 ==
LOC: EMEROO 10:47 → 2SOUTHHOLD 14:28 → SUATTDRO 14:28 → 2SOUTHHOLD 14:55 → 3ANU 04-30 05:32
PROVIDERS: ADMIT Internal Medicine; ATTEND Internal Medicine

== ENCOUNTER 2017-05-04 16:23 | Observation (INO) ==
--- NOTE | 2017-05-04 17:30 | Emergency Department Note ---
Disposition Clinical Impression: Pleural effusion on right Disposition: Admitted As Inpatient Condition: Good Time of Disposition: 17:20 SOB HPI - General Chief Complaint: ED Shortness of Breath/Dyspnea Stated Complaint: Pleural effusion Time Seen by Provider: 05/04/17 16:36 Source: patient Mode of arrival: ambulatory Limitations: no limitations Nursing Notes Reviewed: Yes Vital Signs Reviewed: Yes - History of Present Illness 76-year-old female presents emergency Department with concerns of increasing dyspnea with exertion. Patient has a history of primary biliary cirrhosis and was recently admitted to the hospital after an episode of GI bleeding. During that hospitalization she received 3 units of blood and banding of her esophageal varices. Over the past 2-3 days since her discharge she has had increasing dyspnea, she was evaluated in urgent care today and found to have a significantly increased right pleural effusion. She has had no pleural effusion drained multiple times in the past by Dr. Moran. Patient denies fever , chills, nausea, vomiting, diarrhea, abdominal pain, chest pain. She is resting comfortably in the bed however she does have conversational dyspnea. - Related Data Home Medications Medication Instructions Recorded Confirmed Calcium Carbonate/Vitamin D3 1 tab PO DAILY 12/19/15 04/29/17 [Calcium 600-Vit D3 200 Tablet] Escitalopram [Lexapro] 15 mg PO DAILY 12/19/15 04/29/17 LORazepam [Ativan] 0.5 - 1 mg PO HS 12/19/15 04/29/17 Levothyroxine [Synthroid] 75 mcg PO DAILY 12/19/15 04/29/17 Multivitamin [Multi-Day Vitamins] 1 tab PO DAILY 12/19/15 04/29/17 Ursodiol 300 mg PO TID 12/19/15 04/29/17 Guaifenesin [Guaifenesin ER] 600 mg PO BID 04/29/17 04/29/17 Oxygen 05/04/17 Previous Rx's Medication Instructions Recorded Nadolol [Corgard] 20 mg PO DAILY #30 tablet 05/02/17 Omeprazole [PriLOSEC] 20 mg PO DAILY@0630 #30 capsule. 05/02/17 Allergies Allergy/AdvReac Type Severity Reaction Status Date / Time acetaminophen [From Vicodin] AdvReac See Verified 05/04/17 14:52 Comments Amoxicillin [From Augmentin] AdvReac See Verified 05/04/17 14:52 Comments azithromycin AdvReac See Verified 05/04/17 14:52 Comments clavulanic acid AdvReac See Verified 05/04/17 14:52 [From Augmentin] Comments codeine AdvReac See Verified 05/04/17 14:52 Comments hydrocodone [From Vicodin] AdvReac See Verified 05/04/17 14:52 Comments meperidine [From Demerol] AdvReac Hallucinati Verified 05/04/17 14:52 ng sertraline [From Zoloft] AdvReac See Verified 05/04/17 14:52 Comments sulfamethoxazole AdvReac See Verified 05/04/17 14:52 [From Bactrim] Comments trimethoprim [From Bactrim] AdvReac See Verified 05/04/17 14:52 Comments All systems ED: reviewed and negative except as stated. Review of Systems: As Per HPI Constitutional: Denies: fever, chills, weakness Cardiovascular: Denies: chest pain, palpitations, syncope Respiratory: Reports: dyspnea, wheezes. Denies: cough, hemoptysis, stridor, sputum production Gastrointestinal: Denies: abdominal pain, nausea, vomiting Past Medical History - Past Medical History Attestation: Yes The following information was validated with the patient. Source: patient Medical history: Reports: non-contributory, GI bleed Surgical history: Reports: breast surgery, cataract, hysterectomy Psychiatric history: Reports: no psych history - Social History Smoking Status: Former smoker Smokeless Tobacco Status: No Alcohol use: Reports: occasionally Drug use: Reports: none Physical Exam General: Alert and in no acute distress Skin: Warm, dry, intact Head: Normocephalic and atraumatic Neck: Supple, trachea midline and no tenderness Cardiovascular: RRR, no murmur, normal perfusion Respiratory: Patient has diminished/absent breath sounds to the right inferior posterior lung foster. There is a mild wheeze in the right upper lung foster. No retractions noted however increased work of breathing noted with conversation Musculoskeletal: Normal strength, no tenderness, swelling or deformity GI: Soft, nontender, nondistended. Bowel sounds present Neuro: A&O to person, place, time and situation. No focal deficits noted on exam Psychiatric: cooperative and appropriate mood and affect. - General Limitations: no limitations General appearance: alert, in no apparent distress Course Vital Signs Temperature 97.9 F 05/04/17 16:31 Pulse Rate 68 05/04/17 16:31 Respiratory Rate 18 05/04/17 16:31 Blood Pressure 131/83 05/04/17 16:31 O2 Sat by Pulse Oximetry 97 05/04/17 16:31 Temperature 97.9 F 05/04/17 16:31 Pulse Rate 71 05/04/17 18:21 Respiratory Rate 16 05/04/17 18:21 Blood Pressure 138/81 05/04/17 18:21 O2 Sat by Pulse Oximetry 98 05/04/17 18:21 Oxygen Delivery Oxygen Delivery Nasal Cannula Shortness of Breath/Dyspnea - MDM Narrative Medical decision making narrative: Hemoglobin within normal limits. X-ray from urgent care reviewed. I spoke with Dr. Strong who agreed with the plan for admission to the hospital to telemetry or to [facility] for further evaluation until she can have a formal thoracentesis tomorrow. Patient does not need emergent thoracentesis at this time as she is hemodynamically stable and resting comfortably in the bed. She does become dyspneic with exertion and with conversation however - Medical Records Medical records reviewed: Yes I reviewed the patient's medical records. - Lab Data Lab results reviewed: Yes I reviewed the patient's lab results. Result diagrams: 05/04/17 17:20 05/04/17 17:20 Lab Results 05/04/17 05/04/17 05/04/17 Range/Units 17:20 17:20 17:20 WBC 4.7 (4.3-11.1) K/mcL RBC 3.84 (3.82-4.97) M/mcL Hgb 11.7 D (11.5-15.4) g/dL Hct 36.7 (35.3-44.9) % MCV 95.6 (83.0-100.0) fL MCH 30.5 (28.0-33.3) pg MCHC 31.9 (31.6-35.5) g/dL RDW 14.6 H (11.5-14.5) % Plt Count 108 L (140-400) K/mcL MPV 10.5 (9.4-12.4) fL Immature Gran % 0.4 (0-4) % Seg Neutrophils % 59.7 % Lymphocytes % 18.9 % Monocytes % 10.0 % Eosinophils % 10.2 % Basophils % 0.8 % Neutrophils # 2.8 (1.6-8.9) K/mcL Lymphocytes # 0.9 (0.6-4.6) K/mcL Monocytes # 0.5 (0.0-1.3) K/mcL Eosinophils # 0.5 (0.0-0.6) K/mcL Basophils # 0.0 (0.0-0.2) K/mcL PT 11.3 (9.4-12.1) Seconds INR 1.1 APTT 26.5 (26.0-36.0) Seconds Sodium 138 (136-145) mEq/L Potassium 4.8 (3.5-5.1) mEq/L Chloride 111 H (98-107) mEq/L Carbon Dioxide 24 (23-29) mEq/L BUN 22 (8-23) mg/dL Creatinine 0.85 (0.60-1.20) mg/dL Est GFR ( Amer) > 60 (> 60) Est GFR (Non-Af Amer) > 60 (> 60) BUN/Creatinine Ratio 26 (6-26) Glucose 106 H (70-105) mg/dL Calculated Osmolality 290 (280-300) Lactic Acid (0.5-2.2) mmol/L Calcium 8.6 (8.6-10.3) mg/dL Total Bilirubin 0.6 (0.3-1.0) mg/dL Direct Bilirubin 0.2 (0.0-0.2) mg/dL Indirect Bilirubin 0.4 (0.0-1.2) mg/dL AST 50 H (13-39) Units/L ALT 29 (7-52) Units/L Alkaline Phosphatase 146 H (34-104) Units/L Troponin I 0.03 (< 0.04) ng/mL B-Natriuretic Peptide (Less than 100) pg/mL Serum Total Protein 6.2 L (6.4-8.9) g/dL Albumin 3.2 L (3.5-5.7) g/dL Globulin 3.0 (2.4-3.5) g/dL Albumin/Globulin Ratio 1.1 (1.1-2.2) 05/04/17 05/04/17 Range/Units 17:20 17:20 WBC (4.3-11.1) K/mcL RBC (3.82-4.97) M/mcL Hgb (11.5-15.4) g/dL Hct (35.3-44.9) % MCV (83.0-100.0) fL MCH (28.0-33.3) pg MCHC (31.6-35.5) g/dL RDW (11.5-14.5) % Plt Count (140-400) K/mcL MPV (9.4-12.4) fL Immature Gran % (0-4) % Seg Neutrophils % % Lymphocytes % % Monocytes % % Eosinophils % % Basophils % % Neutrophils # (1.6-8.9) K/mcL Lymphocytes # (0.6-4.6) K/mcL Monocytes # (0.0-1.3) K/mcL Eosinophils # (0.0-0.6) K/mcL Basophils # (0.0-0.2) K/mcL PT (9.4-12.1) Seconds INR APTT (26.0-36.0) Seconds Sodium (136-145) mEq/L Potassium (3.5-5.1) mEq/L Chloride (98-107) mEq/L Carbon Dioxide (23-29) mEq/L BUN (8-23) mg/dL Creatinine (0.60-1.20) mg/dL Est GFR ( Amer) (> 60) Est GFR (Non-Af Amer) (> 60) BUN/Creatinine Ratio (6-26) Glucose (70-105) mg/dL Calculated Osmolality (280-300) Lactic Acid 1.5 (0.5-2.2) mmol/L Calcium (8.6-10.3) mg/dL Total Bilirubin (0.3-1.0) mg/dL Direct Bilirubin (0.0-0.2) mg/dL Indirect Bilirubin (0.0-1.2) mg/dL AST (13-39) Units/L ALT (7-52) Units/L Alkaline Phosphatase (34-104) Units/L Troponin I (< 0.04) ng/mL B-Natriuretic Peptide 247 H (Less than 100) pg/mL Serum Total Protein (6.4-8.9) g/dL Albumin (3.5-5.7) g/dL Globulin (2.4-3.5) g/dL Albumin/Globulin Ratio (1.1-2.2) - Radiology Data Radiology results reviewed: Yes I reviewed the patient's radiology results. - EKG Data EKG attestation: Yes I reviewed and interpreted this EKG. EKG results narrative: ECG - interpreted by ED physician. Rate 69, normal sinus rhythm, no STEMI, NC, QT intervals, and QRS within normal limits
[2017-05-04 17:51] LABS: Basophils % 0.8 %; Eosinophils # 0.5 K/mcL (0.0-0.6); Eosinophils % 10.2 %; Hematocrit 36.7 % (35.3-44.9); Immature Granulocytes % 0.4 % (0-4); Lymphocytes # 0.9 K/mcL (0.6-4.6); Lymphocytes % 18.9 %; Mean Corpuscular HGB Conc 31.9 g/dL (31.6-35.5); Mean Corpuscular Hemoglobin 30.5 pg (28.0-33.3); Mean Corpuscular Volume 95.6 fL (83.0-100.0); Mean Platelet Volume 10.5 fL (9.4-12.4); Monocytes # 0.5 K/mcL (0.0-1.3); Neutrophils # 2.8 K/mcL (1.6-8.9); Platelet Count 108 K/mcL (140-400); Red Blood Count 3.84 M/mcL (3.82-4.97); Red Cell Distribution Width 14.6 % (11.5-14.5); Segmented Neutrophils % 59.7 %
[2017-05-04 17:53] LABS: Hemoglobin 11.7 g/dL (11.5-15.4)
[2017-05-04 17:58] LABS: INR 1.1; Prothrombin Time 11.3 Seconds (9.4-12.1)
[2017-05-04 18:00] LABS: Activated Partial Thrombo Time 26.5 Seconds (26.0-36.0)
[2017-05-04 18:11] LABS: Alanine Aminotransferase 29 Units/L (7-52); Albumin 3.2 g/dL (3.5-5.7); Albumin/Globulin Ratio 1.1 (1.1-2.2); Alkaline Phosphatase 146 Units/L (34-104); Aspartate Amino Transferase 50 Units/L (13-39); BUN/Creatinine Ratio 26 (6-26); Bilirubin,Direct 0.2 mg/dL (0.0-0.2); Bilirubin,Indirect 0.4 mg/dL (0.0-1.2); Bilirubin,Total 0.6 mg/dL (0.3-1.0); Blood Urea Nitrogen 22 mg/dL (8-23); Calcium 8.6 mg/dL (8.6-10.3); Carbon Dioxide 24 mEq/L (23-29); Chloride 111 mEq/L (98-107); Glucose 106 mg/dL (70-105); Osmolality,Calculated 290 (280-300); Potassium 4.8 mEq/L (3.5-5.1); Sodium 138 mEq/L (136-145); Total Protein 6.2 g/dL (6.4-8.9); Troponin I 0.03 ng/mL (< 0.04); eGFR For African Americans > 60 (> 60); eGFR For Non-African Americans > 60 (> 60)
[2017-05-04] MEDS ORDERED: Naloxone 0.4 MG/ML INJ IVP PRN (21:33)
[2017-05-04] MEDS ORDERED: Furosemide 40 MG/4 ML VIAL IVP ONE (21:38)
--- NOTE | 2017-05-04 21:38 | Internal Med History&Physical ---
Date of Encounter: 05/04/17 Time of Encounter: 21:43 Assessment and Plan (1) Pleural effusion on right Current visit: Yes Status: Acute Could be related to volume overload secondary to transfusion last visit Dose of Lasix IV overnight Reviewed personally recent echo in 2017 which showed intact LVEF, very mild diastolic dysfunction that is probably clinically nonsignificant Consult IR for therapeutic thoracentesis, check coags, nothing by mouth overnight (2) Gastrointestinal bleeding Current visit: No Status: Acute Nonactive pending further evaluation by GI as an outpatient. SCD prophylaxis. Monitor hemoglobin, follow-up outpatient with GI Qualifiers: GI bleed type/associated pathology: melena Qualified Code(s): K92.1 - Melena (3) Esophageal varices Current visit: No Status: Chronic Monitor for now Qualifiers: Esophageal varices type: secondary Esophageal varices bleeding: without bleeding Qualified Code(s): I85.10 - Secondary esophageal varices without bleeding (4) Primary biliary cirrhosis Current visit: No Status: Chronic Continue ursodiol Internal Medicine - H&P: HPI Chief complaint: SOB History of present illness: Ms. Roy is a 76 year old female who presents with shortness of breath found to have a large right pleural effusion. Patient was recently discharged on Friday for an upper GI bleed found to have esophageal versus in the setting of PBC, and had received 3 units of blood prior to discharge. There are plans for an outpatient Endoscopy in [address] Figureoa. Colonoscopy on 05/02/17 revealed internal hemorrhoids and multiple colonic angioectasias treated with argon plasma coagulation. Since returning home on Friday she developed progressive shortness of breath that is worse on exertion around her house with no improving factors. She denies any fevers or chills. She presented to the ER where he was found to have a large right-sided effusion. At baseline patient uses 2 L oxygen at night since a pneumonia diagnosis at the end of November 2016. Patient sees Dr. Moran of pulmonology with a history of pleural effusion where she had repeated thoracentesis last a month ago and previously November 2016 approximately. She lives at home and is ambulating independently. She takes care of her Alzheimer's dementia at home. EKG personally reviewed with rate of 69, normal sinus rhythm XR/XR chest 2V IMPRESSION: Large right pleural effusion increased in size from 04/14/2017 with atelectasis. Consolidation not excluded. Findings: Study Quality * Technically adequate exam. ECG Findings * Normal sinus rhythm. Left Ventricle * LVEF 60%. * Normal LV chamber size, wall thickness and function. * Mild left ventricular diastolic dysfunction. Right Ventricle * Normal right ventricular structure and function. Left Atrium * Normal left atrial size. Right Atrium * Normal right atrial size. Aortic Valve * No aortic regurgitation. * Trileaflet aortic valve. * Normal aortic valve structure. * No aortic stenosis. Mitral Valve * Normal mitral valve structure. * No mitral stenosis. * Mild mitral regurgitation. Tricuspid Valve * Normal tricuspid valve structure. * Mild tricuspid regurgitation. * Estimated RA pressure is 3 mmHg. * Estimated RVSP is 35 mmHg. * Borderline pulmonary hypertension. Pulmonic Valve * Pulmonic valve is not well visualized. * No pulmonic stenosis. * No pulmonic regurgitation. Pulmonary Artery * Pulmonary artery not well visualized. Aorta * Normally sized aortic root. Pericardium * There is no pericardial effusion present. Interatrial Septum * No evidence of PFO by color Doppler. IVC * Normal IVC dimensions and inspiratory collapse. Past Med Surg Social Fam HX - Past Medical History Medical history: non-contributory, GI bleed Psychiatric history: no psych history - Past Surgical History Surgical History: breast surgery, cataract, hysterectomy - Social History Smoking Status: Former smoker Smokeless Tobacco Status: No Alcohol use: occasionally Drug use: none - Family History Father Hx Family Cancer: Yes Mother Hx Family GI Disorders: Yes (liver disease) Sister Adopted: No Living Status: Hx Family Cardiac Disorders: Yes Internal Medicine - H&P: Meds Calcium Carbonate/Vitamin D3 [Calcium 600-Vit D3 200 Tablet] 1 tab PO DAILY 09/25 [History] Escitalopram [Lexapro] 15 mg PO DAILY 12/19/15 [History] LORazepam [Ativan] 0.5 - 1 mg PO HS 12/19/15 [History] Levothyroxine [Synthroid] 75 mcg PO DAILY 12/19/15 [History] Multivitamin [Multi-Day Vitamins] 1 tab PO DAILY 12/19/15 [History] Ursodiol 300 mg PO TID 12/19/15 [History] Guaifenesin [Guaifenesin ER] 600 mg PO BID 04/29/17 [History] Nadolol [Corgard] 20 mg PO DAILY #30 tablet 05/02/17 [Rx] Omeprazole [PriLOSEC] 20 mg PO DAILY@0630 #30 capsule. 05/02/17 [Rx] Oxygen 05/04/17 [History] 3 Allergy/AdvReac Type Severity Reaction Status Date / Time acetaminophen [From Vicodin] AdvReac See Verified 05/04/17 14:52 Comments Amoxicillin [From Augmentin] AdvReac See Verified 05/04/17 14:52 Comments azithromycin AdvReac See Verified 05/04/17 14:52 Comments clavulanic acid AdvReac See Verified 05/04/17 14:52 [From Augmentin] Comments codeine AdvReac See Verified 05/04/17 14:52 Comments hydrocodone [From Vicodin] AdvReac See Verified 05/04/17 14:52 Comments meperidine [From Demerol] AdvReac Hallucinati Verified 05/04/17 14:52 ng sertraline [From Zoloft] AdvReac See Verified 05/04/17 14:52 Comments sulfamethoxazole AdvReac See Verified 05/04/17 14:52 [From Bactrim] Comments trimethoprim [From Bactrim] AdvReac See Verified 05/04/17 14:52 Comments All Systems PM: A 10-system review of systems was performed and is negative for pertinent findings except as documented above in the HPI. Review of systems: ROS 14 point review of systems reviewed as best as possible given presentation. Pertinent positive or negative as per HPI or otherwise reviewed as negative - Constitutional Vitals: Temp Pulse Resp BP Pulse Ox 97.9 F 71 16 138/81 98 05/04/17 16:31 05/04/17 18:21 05/04/17 18:21 05/04/17 18:21 05/04/17 18:21 Exam: General - AAO x 3 Psych - Appropriate affect/speech. No agitation Eyes - MARYANNE. Eye lids intact. No scleral icterus Neuro - No gross peripheral or central neuro deficits on inspection Heart - Sinus. RRR. S1 and S2 present. No added HS/murmurs appreciated. No elevated JVD appreciated. Lung - Adequate air entry b/l, right lung dullness with decreased breath sounds GI - Soft, non-tender. No hepatosplenomegaly/ascites. BS+ - No CVA/suprapubic tenderness or palpable bladder distension Skin - Intact. No rash/petechiae/ecchymosis. Warm extremities Internal Med - H&P Results - Labs CBC & Chem 7: 05/04/17 17:20 05/04/17 17:20
[2017-05-04] MEDS: traMADol 50 MG TABLET PO PRN (22:49)
[2017-05-05 06:09] LABS: Red Cell Distribution Width 14.6 % (11.5-14.5)
[2017-05-05 06:11] LABS: Hematocrit 33.1 % (35.3-44.9); Hemoglobin 10.7 g/dL (11.5-15.4); Immature Platelets 3.9 % (1.1-6.1); Mean Corpuscular HGB Conc 32.3 g/dL (31.6-35.5); Mean Corpuscular Hemoglobin 30.3 pg (28.0-33.3); Mean Corpuscular Volume 93.8 fL (83.0-100.0); Red Blood Count 3.53 M/mcL (3.82-4.97)
[2017-05-05 06:15] LABS: INR 1.1; Prothrombin Time 11.8 Seconds (9.4-12.1)
[2017-05-05 06:18] LABS: Activated Partial Thrombo Time 26.2 Seconds (26.0-36.0)
[2017-05-05 06:24] LABS: BUN/Creatinine Ratio 24 (6-26); Blood Urea Nitrogen 19 mg/dL (8-23); Calcium 8.2 mg/dL (8.6-10.3); Carbon Dioxide 26 mEq/L (23-29); Chloride 110 mEq/L (98-107); Glucose 89 mg/dL (70-105); Osmolality,Calculated 294 (280-300); Potassium 3.8 mEq/L (3.5-5.1); Sodium 141 mEq/L (136-145); eGFR For African Americans > 60 (> 60); eGFR For Non-African Americans > 60 (> 60)
[2017-05-05] MEDS ORDERED: Calcium 600-Vit D3 PO SCH (09:00)
[2017-05-05] MEDS: Cholecalciferol (D-3) 1,000 UNIT TABLET PO SCH (09:37)
--- NOTE | 2017-05-05 10:07 | Internal Med Progress Note ---
Date of Encounter: 05/05/17 Time of Encounter: 10:05 - Assessment and plan (1) Pleural effusion on right Current Visit: Yes Status: Acute Assessment and plan: Awaiting thoracentesis today and INR. Thoracentesis in the past were transudative fluid. 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 She also had received transfusions last stay here. She just recently got discharged. She possibly has some volume overload component to this. Continue O2 support. Wean down as tolerated. She uses about 2 L at night continuously. She is not on oxygen during the day at home. Currently is on 4 L. (2) Essential hypertension Current Visit: No Status: Chronic Assessment and plan: Resume home antihypertensives. (3) Hypothyroidism Current Visit: No Status: Chronic Assessment and plan: Continue Synthroid. Qualifiers: Hypothyroidism type: unspecified Qualified Code(s): E03.9 - Hypothyroidism , unspecified (4) Primary biliary cirrhosis Current Visit: No Status: Chronic Assessment and plan: Follows up with GI as outpatient. Continue nadolol. (5) DVT prophylaxis Current Visit: No Status: Acute Assessment and plan: SCDs - Subjective Interval history: She was seen and examined. She remains on 4 L of nasal cannula oxygen. Still short of breath. Admitted last night with right pleural effusion. She has had recurrent right pleural effusions that required thoracentesis. Those were transudative in the past. The patient was recently discharged from here after a GI bleed for which esophageal varices were banded. She has a history of primary biliary cirrhosis and follows with GI. - Constitutional Vitals: Temp Pulse Resp BP Pulse Ox 98.1 F 68 18 116/73 92 05/05/17 07:11 05/05/17 07:11 05/05/17 07:11 05/05/17 07:11 05/05/17 07:11 Exam: GEN: NAD CVS: RRR. S1, S2, No m/r/g RESP: Diminished on the right. ABD: Soft, NT, ND, +BS EXT: No edema. 2+ DP. No rashes NEURO: Nonfocal Internal Medicine: Result - Labs CBC & Chem 7: 05/05/17 05:44 05/05/17 05:44 Labs: Short CBC 05/05/17 Range/Units 05:44 WBC 3.8 L (4.3-11.1) K/mcL Hgb 10.7 L (11.5-15.4) g/dL Hct 33.1 L (35.3-44.9) % Plt Count 91 L (140-400) K/mcL BMP 05/05/17 05:44 Sodium 141 Potassium 3.8 Chloride 110 H Carbon Dioxide 26 BUN 19 Creatinine 0.78 Glucose 89 Calcium 8.2 L - ABG Interpretation ABG results: PT/INR, D-dimer PT 11.8 Seconds (9.4-12.1) 05/05/17 05:44 Consult Discharge Plan - Plan Referrals: Lanny Rogers, SURGICAL GARMENT ASSEMBLY SUPERVISOR [Primary Care Provider] -
[2017-05-05] MEDS: traMADol 50 MG TABLET PO PRN (10:09)
[2017-05-05] MEDS ORDERED: *HR* Enoxaparin 30 MG/0.3 ML SYRINGE SQ SCH (21:00)
[2017-05-05] MEDS ORDERED: *HR* LORazepam 0.5 MG TABLET PO SCH (21:00)
[2017-05-06 05:49] LABS: Hematocrit 31.8 % (35.3-44.9); Hemoglobin 10.3 g/dL (11.5-15.4); Immature Granulocytes % 0.3 % (0-4); Mean Corpuscular HGB Conc 32.4 g/dL (31.6-35.5); Mean Corpuscular Hemoglobin 30.5 pg (28.0-33.3); Mean Corpuscular Volume 94.1 fL (83.0-100.0); Red Blood Count 3.38 M/mcL (3.82-4.97); Red Cell Distribution Width 14.6 % (11.5-14.5)
[2017-05-06 05:51] LABS: Basophils % 0.5 %; Eosinophils # 0.4 K/mcL (0.0-0.6); Eosinophils % 9.8 %; Immature Platelets 3.3 % (1.1-6.1); Lymphocytes # 1.1 K/mcL (0.6-4.6); Mean Platelet Volume 10.4 fL (9.4-12.4); Monocytes # 0.5 K/mcL (0.0-1.3); Monocytes % 11.6 %; Segmented Neutrophils % 50.8 %
[2017-05-06 05:55] LABS: Platelet Count 94 K/mcL (140-400)
[2017-05-06 06:04] LABS: BUN/Creatinine Ratio 26 (6-26); Blood Urea Nitrogen 22 mg/dL (8-23); Carbon Dioxide 27 mEq/L (23-29); Chloride 109 mEq/L (98-107); Glucose 90 mg/dL (70-105); Magnesium 2.1 mg/dL (1.6-2.6); Osmolality,Calculated 291 (280-300); Sodium 139 mEq/L (136-145); eGFR For African Americans > 60 (> 60); eGFR For Non-African Americans > 60 (> 60)
[2017-05-06] MEDS: Cholecalciferol (D-3) 1,000 UNIT TABLET PO SCH (08:34)
[2017-05-06] MEDS ORDERED: Metoprolol XL (24 HR) Succ 50 MG TAB.ER.24H PO SCH (09:00)
[2017-05-06] MEDS ORDERED: Multivit/Ca/Min/Fe/FA 1 TAB TABLET PO SCH (09:00)
[2017-05-06] MEDS: traMADol 50 MG TABLET PO PRN (09:39)
--- NOTE | 2017-05-06 10:13 | Discharge Summary ---
Orders not resulted at time of discharge: Pending orders 05/06/17 09:53 XR KUB [XR] Routine 05/06/17 10:10 LFTs [Hepatic Panel] Stat Lipase Stat ECG 12 lead ECG [ECG] Stat Date of Encounter: 05/06/17 Time of Encounter: 10:11 - Discharge Diagnosis (1) Pleural effusion on right Priority: Primary Status: Acute (2) Essential hypertension Priority: Secondary Status: Chronic (3) Hypothyroidism Priority: Secondary Status: Chronic Qualifiers: Hypothyroidism type: unspecified Qualified Code(s): E03.9 - Hypothyroidism , unspecified (4) Primary biliary cirrhosis Priority: Secondary Status: Chronic Hospital course: Ms. Roy is a 76 year old female who presented with shortness of breath found to have a large right pleural effusion. Patient was recently discharged a couple of days prior to this admission for an upper GI bleed found to have esophageal varices in the setting of Primarh biliary cirrhosis. At the time she received 3 units of blood prior to discharge. There are plans for an outpatient Endoscopy in [address] Figueroa. Colonoscopy on 05/02/17 revealed internal hemorrhoids and multiple colonic angioectasias treated with argon plasma coagulation. Since returning home she developed progressive shortness of breath that is worse on exertion around her house with no improving factors. She is chronically O2 dependent from a recent pneumonia that left her needing O2. She has had pleural effusions in the past suspected to be secondary to the cirrhosis. This time around it may have been exacerbated the blood transfusion as well. She was admitted and underwent a right sided thoracentesis with 1.1 L drained. She was back to her baseline oxygen needs. She will follow up with her PCP. She sees pulmonary as an outpatient as well regularly. She also has an appointment with Dr. Figueroa for GI in about a week or so. She was stable for discharge on 05/06 A - Time Spent with Patient Total time spent providing and/or coordinating discharge services: Greater than 30 minutes - Discharge Medications Home Medications: Calcium Carbonate/Vitamin D3 [Calcium 600-Vit D3 200 Tablet] 1 tab PO DAILY 09/25 [History] Escitalopram [Lexapro] 15 mg PO DAILY 12/19/15 [History] LORazepam [Ativan] 0.5 - 1 mg PO HS 12/19/15 [History] Levothyroxine [Synthroid] 75 mcg PO DAILY 12/19/15 [History] Multivitamin [Multi-Day Vitamins] 1 tab PO DAILY 12/19/15 [History] Ursodiol 300 mg PO TID 12/19/15 [History] Guaifenesin [Guaifenesin ER] 600 mg PO BID 04/29/17 [History] Nadolol [Corgard] 20 mg PO DAILY #30 tablet 05/02/17 [Rx] Omeprazole [PriLOSEC] 20 mg PO DAILY@0630 #30 capsule. 05/02/17 [Rx] Lisinopril 2.5 mg PO DAILY 05/05/17 [History] Metoprolol Succinate [Toprol Xl] 50 mg PO DAILY 05/05/17 [History] Allergies/Adverse Reactions: 3 Allergy/AdvReac Type Severity Reaction Status Date / Time acetaminophen [From Vicodin] AdvReac See Verified 05/04/17 14:52 Comments Amoxicillin [From Augmentin] AdvReac See Verified 05/04/17 14:52 Comments azithromycin AdvReac See Verified 05/04/17 14:52 Comments clavulanic acid AdvReac See Verified 05/04/17 14:52 [From Augmentin] Comments codeine AdvReac See Verified 05/04/17 14:52 Comments hydrocodone [From Vicodin] AdvReac See Verified 05/04/17 14:52 Comments meperidine [From Demerol] AdvReac Hallucinati Verified 05/04/17 14:52 ng sertraline [From Zoloft] AdvReac See Verified 05/04/17 14:52 Comments sulfamethoxazole AdvReac See Verified 05/04/17 14:52 [From Bactrim] Comments trimethoprim [From Bactrim] AdvReac See Verified 05/04/17 14:52 Comments Date of admission: 05/04/17 18:30 Primary care physician: Lanny Rogers CNP Consults: 05/04/17 21:35 Consult to Interventional Radiology [CONS] Routine Consulting Provider: Radiology Interventional Cols Reason for Consult: therapeutic thoracentesis Call Completed: No 05/05/17 10:04 Consult to Occupational Therapy [CONS] Routine Comment: Evaluate, develop and implement POC Reason for Consult: md request Does patient have active BEDREST order?: No Is patient medically & hemodynamically stable?: Yes Consult to Physical Therapy [CONS] Routine Comment: Evaluate, develop and implement POC Reason for Consult: md request Does patient have active BEDREST order?: No Is patient medically & hemodynamically stable?: Yes - Constitutional Vitals: Temp Pulse Resp BP Pulse Ox 97.6 F 80 18 131/65 94 05/06/17 08:10 05/06/17 08:10 05/06/17 08:10 05/06/17 08:10 05/06/17 08:10 Exam: GEN: NAD CVS: RRR. S1, S2, No m/r/g RESP: Bibasilar crackles. ABD: Soft, NT, ND, +BS EXT: No edema. 2+ DP. No rashes NEURO: Nonfocal - Patient Status Disposition: Home, Self-Care Condition: Fair Overall status at discharge: patient is progressing back to baseline - Discharge Instructions Follow Up With: Lanny Rogers DRIVER RECRUITER [Primary Care Provider] - 05/23/17 8:10 am - Diet and Activity Activity: increase activity as tolerated Diet: low salt diet
[2017-05-06 10:34] LABS: Alanine Aminotransferase 25 Units/L (7-52); Albumin 2.8 g/dL (3.5-5.7); Albumin/Globulin Ratio 1.2 (1.1-2.2); Alkaline Phosphatase 123 Units/L (34-104); Aspartate Amino Transferase 45 Units/L (13-39); Bilirubin,Direct 0.1 mg/dL (0.0-0.2); Bilirubin,Indirect 0.4 mg/dL (0.0-1.2); Bilirubin,Total 0.5 mg/dL (0.3-1.0); Globulin 2.3 g/dL (2.4-3.5); Lipase 88 Units/L (11-82); Total Protein 5.1 g/dL (6.4-8.9)
[2017-05-06 11:44] VITALS: BP 104/63
--- NOTE | 2017-05-06 19:35 | Electrocardiograph Report ---
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
--- NOTE | 2017-05-07 08:04 | Electrocardiograph Report ---
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
== END 2017-05-06 14:34 | disposition home or self-care (01) | DRG 186 ==
LOC: EMEROO 16:23 → INTOOBSV 18:30 → 2ANU 18:30
PROVIDERS: ADMIT Nurse Practitioner; ATTEND Internal Medicine

== ENCOUNTER 2017-05-09 11:12 | Observation (INO) ==
--- NOTE | 2017-05-09 11:32 | Emergency Department Note ---
Disposition Clinical Impression: Pleural effusion, Primary biliary cirrhosis Disposition: Admitted As Inpatient Condition: Fair General Adult HPI - General Chief complaint: ED Shortness of Breath/Dyspnea Stated complaint: pleural effusion Time Seen by Provider: 05/09/17 11:21 Source: patient Limitations: no limitations - History of Present Illness Pain Scale: 0 - Related Data Home Medications Medication Instructions Recorded Confirmed Calcium Carbonate/Vitamin D3 1 tab PO DAILY 12/19/15 05/09/17 [Calcium 600-Vit D3 200 Tablet] Escitalopram [Lexapro] 15 mg PO DAILY 12/19/15 05/09/17 LORazepam [Ativan] 0.5 - 1 mg PO HS 12/19/15 05/09/17 Levothyroxine [Synthroid] 75 mcg PO DAILY 12/19/15 05/09/17 Multivitamin [Multi-Day Vitamins] 1 tab PO DAILY 12/19/15 05/09/17 Ursodiol 300 mg PO TID 12/19/15 05/09/17 Lisinopril 2.5 mg PO DAILY 05/05/17 05/09/17 Metoprolol Succinate [Toprol Xl] 50 mg PO DAILY 05/05/17 05/09/17 raNITIdine HCl [Ranitidine HCl] 150 mg PO BID 05/09/17 05/09/17 Allergies Allergy/AdvReac Type Severity Reaction Status Date / Time acetaminophen [From Vicodin] AdvReac See Verified 05/09/17 13:13 Comments Amoxicillin [From Augmentin] AdvReac See Verified 05/09/17 13:13 Comments azithromycin AdvReac See Verified 05/09/17 13:13 Comments clavulanic acid AdvReac See Verified 05/09/17 13:13 [From Augmentin] Comments codeine AdvReac See Verified 05/09/17 13:13 Comments hydrocodone [From Vicodin] AdvReac See Verified 05/09/17 13:13 Comments meperidine [From Demerol] AdvReac Hallucinati Verified 05/09/17 13:13 ng sertraline [From Zoloft] AdvReac See Verified 05/09/17 13:13 Comments sulfamethoxazole AdvReac See Verified 05/09/17 13:13 [From Bactrim] Comments trimethoprim [From Bactrim] AdvReac See Verified 05/09/17 13:13 Comments Past Medical History - Past Medical History Medical history: Reports: non-contributory, GI bleed Surgical history: Reports: breast surgery, cataract, hysterectomy Psychiatric history: Reports: no psych history - Social History Smoking Status: Former smoker Smokeless Tobacco Status: No Alcohol use: Reports: occasionally Drug use: Reports: none Physical Exam - General Limitations: no limitations General appearance: alert, in no apparent distress Course Vital Signs Temperature 97.4 F L 05/09/17 11:15 Pulse Rate 84 05/09/17 11:15 Respiratory Rate 18 05/09/17 11:15 Blood Pressure 128/83 05/09/17 11:15 O2 Sat by Pulse Oximetry 96 05/09/17 11:15 Temperature 97.4 F L 05/09/17 15:13 Pulse Rate 77 05/09/17 15:13 Respiratory Rate 16 05/09/17 15:13 Blood Pressure 133/78 05/09/17 15:13 O2 Sat by Pulse Oximetry 93 05/09/17 15:13 Oxygen Delivery Oxygen Delivery Room Air Medical Decision Making - Lab Data Result diagrams: 05/09/17 12:18 05/09/17 12:18 Lab Results 05/09/17 05/09/17 05/09/17 Range/Units 12:18 12:18 12:18 WBC 4.5 (4.3-11.1) K/mcL RBC 3.79 L (3.82-4.97) M/mcL Hgb 11.6 (11.5-15.4) g/dL Hct 35.7 (35.3-44.9) % MCV 94.2 (83.0-100.0) fL MCH 30.6 (28.0-33.3) pg MCHC 32.5 (31.6-35.5) g/dL RDW 14.7 H (11.5-14.5) % Plt Count 108 L (140-400) K/mcL MPV 10.3 (9.4-12.4) fL Immature Gran % 0.4 (0-4) % Seg Neutrophils % 60.3 % Lymphocytes % 20.0 % Monocytes % 9.3 % Eosinophils % 8.4 % Basophils % 1.6 % Neutrophils # 2.7 (1.6-8.9) K/mcL Lymphocytes # 0.9 (0.6-4.6) K/mcL Monocytes # 0.4 (0.0-1.3) K/mcL Eosinophils # 0.4 (0.0-0.6) K/mcL Basophils # 0.1 (0.0-0.2) K/mcL PT 10.8 (9.4-12.1) Seconds INR 1.0 Sodium 137 (136-145) mEq/L Potassium 4.3 (3.5-5.1) mEq/L Chloride 107 (98-107) mEq/L Carbon Dioxide 24 (23-29) mEq/L BUN 18 (8-23) mg/dL Creatinine 0.84 (0.60-1.20) mg/dL Est GFR ( Amer) > 60 (> 60) Est GFR (Non-Af Amer) > 60 (> 60) BUN/Creatinine Ratio 21 (6-26) Glucose 164 H (70-105) mg/dL Calculated Osmolality 290 (280-300) Calcium 8.8 (8.6-10.3) mg/dL Total Bilirubin 0.6 (0.3-1.0) mg/dL Direct Bilirubin 0.2 (0.0-0.2) mg/dL Indirect Bilirubin 0.4 (0.0-1.2) mg/dL AST 49 H (13-39) Units/L ALT 30 (7-52) Units/L Alkaline Phosphatase 144 H (34-104) Units/L Lactate Dehydrogenase 269 (140-271) Units/L Troponin I 0.03 (< 0.04) ng/mL B-Natriuretic Peptide (Less than 100) pg/mL Serum Total Protein 6.0 L (6.4-8.9) g/dL Albumin 3.1 L (3.5-5.7) g/dL Globulin 2.9 (2.4-3.5) g/dL Albumin/Globulin Ratio 1.1 (1.1-2.2) Blood Type Antibody Screen 05/09/17 05/09/17 Range/Units 12:18 12:18 WBC (4.3-11.1) K/mcL RBC (3.82-4.97) M/mcL Hgb (11.5-15.4) g/dL Hct (35.3-44.9) % MCV (83.0-100.0) fL MCH (28.0-33.3) pg MCHC (31.6-35.5) g/dL RDW (11.5-14.5) % Plt Count (140-400) K/mcL MPV (9.4-12.4) fL Immature Gran % (0-4) % Seg Neutrophils % % Lymphocytes % % Monocytes % % Eosinophils % % Basophils % % Neutrophils # (1.6-8.9) K/mcL Lymphocytes # (0.6-4.6) K/mcL Monocytes # (0.0-1.3) K/mcL Eosinophils # (0.0-0.6) K/mcL Basophils # (0.0-0.2) K/mcL PT (9.4-12.1) Seconds INR Sodium (136-145) mEq/L Potassium (3.5-5.1) mEq/L Chloride (98-107) mEq/L Carbon Dioxide (23-29) mEq/L BUN (8-23) mg/dL Creatinine (0.60-1.20) mg/dL Est GFR ( Amer) (> 60) Est GFR (Non-Af Amer) (> 60) BUN/Creatinine Ratio (6-26) Glucose (70-105) mg/dL Calculated Osmolality (280-300) Calcium (8.6-10.3) mg/dL Total Bilirubin (0.3-1.0) mg/dL Direct Bilirubin (0.0-0.2) mg/dL Indirect Bilirubin (0.0-1.2) mg/dL AST (13-39) Units/L ALT (7-52) Units/L Alkaline Phosphatase (34-104) Units/L Lactate Dehydrogenase (140-271) Units/L Troponin I (< 0.04) ng/mL B-Natriuretic Peptide 192 H (Less than 100) pg/mL Serum Total Protein (6.4-8.9) g/dL Albumin (3.5-5.7) g/dL Globulin (2.4-3.5) g/dL Albumin/Globulin Ratio (1.1-2.2) Blood Type B POSITIVE Antibody Screen NEGATIVE Attestation Statement - Attestation Attestation: I examined this patient and my medical decision-making was reviewed with the Resident Physician. I agree with the documented findings, disposition and treatment plan as described except to the extent set forth below. Face to face time provided Patient presents with SOB. Appears mildly dyspneic on exam. H/O pleural effusion requiring thoracentesis. Evaluated in conjunction with the resident physician Dr. Pelaez
--- NOTE | 2017-05-09 11:47 | Emergency Department Note ---
Disposition Clinical Impression: Pleural effusion, Primary biliary cirrhosis Disposition: Admitted As Inpatient Condition: Fair Referrals: Lanny Rogers, [employer]ANCE [employer] [Primary Care Provider] - Forms: ED Satisfaction Letter Time of Disposition: 13:07 General Adult HPI - General Chief complaint: ED Shortness of Breath/Dyspnea Stated complaint: pleural effusion Time Seen by Provider: 05/09/17 11:21 Source: patient Mode of arrival: ambulatory Limitations: no limitations Nursing Notes Reviewed: Yes Vital Signs Reviewed: Yes - History of Present Illness HPI Narrative: 76-year-old female with history of primary biliary cirrhosis and recurrent pleural effusions presents for evaluation of dyspnea. Patient states she was recently hospitalized twice in the past couple weeks. States that she has had increasing dyspnea since being discharged 2 days ago. Patient states that her recent hospitalization included an upper endoscopy where she had varices that were banded. Patient also had a colonoscopy which does not reveal any source of bleeding. Patient did receive 3 units of blood during that stay requiring a pleural effusion drainage. Patient states that since being discharged 2 days ago she has had increasing dyspnea. Patient has been wearing oxygen at home. Patient reports a cough but no fevers. Patient has any chest pain. Patient denies any specific abdominal pain. Patient denies any blood in her stool or dark tarry stools. Patient denies any coffee-ground emesis. Patient spoke with the pulmonary doctor told her to go to the ER for evaluation. Pain Scale: 0 - Related Data Home Medications Medication Instructions Recorded Confirmed Calcium Carbonate/Vitamin D3 1 tab PO DAILY 12/19/15 05/05/17 [Calcium 600-Vit D3 200 Tablet] Escitalopram [Lexapro] 15 mg PO DAILY 12/19/15 05/05/17 LORazepam [Ativan] 0.5 - 1 mg PO HS 12/19/15 05/05/17 Levothyroxine [Synthroid] 75 mcg PO DAILY 12/19/15 05/05/17 Multivitamin [Multi-Day Vitamins] 1 tab PO DAILY 12/19/15 05/05/17 Ursodiol 300 mg PO TID 12/19/15 05/05/17 Guaifenesin [Guaifenesin ER] 600 mg PO BID 04/29/17 05/05/17 Lisinopril 2.5 mg PO DAILY 05/05/17 05/05/17 Metoprolol Succinate [Toprol Xl] 50 mg PO DAILY 05/05/17 05/05/17 Previous Rx's Medication Instructions Recorded Nadolol [Corgard] 20 mg PO DAILY #30 tablet 05/02/17 Omeprazole [PriLOSEC] 20 mg PO DAILY@0630 #30 capsule. 05/02/17 Allergies Allergy/AdvReac Type Severity Reaction Status Date / Time acetaminophen [From Vicodin] AdvReac See Verified 05/04/17 14:52 Comments Amoxicillin [From Augmentin] AdvReac See Verified 05/04/17 14:52 Comments azithromycin AdvReac See Verified 05/04/17 14:52 Comments clavulanic acid AdvReac See Verified 05/04/17 14:52 [From Augmentin] Comments codeine AdvReac See Verified 05/04/17 14:52 Comments hydrocodone [From Vicodin] AdvReac See Verified 05/04/17 14:52 Comments meperidine [From Demerol] AdvReac Hallucinati Verified 05/04/17 14:52 ng sertraline [From Zoloft] AdvReac See Verified 05/04/17 14:52 Comments sulfamethoxazole AdvReac See Verified 05/04/17 14:52 [From Bactrim] Comments trimethoprim [From Bactrim] AdvReac See Verified 05/04/17 14:52 Comments All systems ED: reviewed and negative except as stated. Constitutional: Denies: fever Cardiovascular: Denies: chest pain Respiratory: Reports: cough, dyspnea Gastrointestinal: Denies: abdominal pain, nausea Musculoskeletal: Denies: back pain Past Medical History - Past Medical History Source: patient Medical history: Reports: non-contributory, GI bleed Surgical history: Reports: breast surgery, cataract, hysterectomy Psychiatric history: Reports: no psych history - Social History Smoking Status: Former smoker Smokeless Tobacco Status: No Alcohol use: Reports: occasionally Drug use: Reports: none Physical Exam - General Limitations: no limitations General appearance: alert, in no apparent distress - Head Head exam: atraumatic, normocephalic, normal inspection - Eye Eye exam: Present: normal appearance, PERRL, EOMI - ENT ENT exam: normal exam - Neck Neck exam: Present: normal inspection, full ROM, trachea midline - Chest Chest inspection: Present: normal inspection, symmetric chest wall rise - Respiratory Respiratory exam: Present: other (Slightly diminished right-sided breath sounds) . Absent: respiratory distress - Cardiovascular Cardiovascular exam: Present: regular rate, normal rhythm. Absent: systolic murmur - Abdominal Exam Abdominal exam: Present: soft, Non-Tender - Extremities Exam Extremities exam: Present: normal inspection, pedal edema (1+ pedal edema) - Expanded Lower Extremity Exam Neurovascular/Tendon exam: Present: normal capillary refill - Neurological Exam Neurological exam: Present: alert, oriented X3, CN II-XII intact - Skin Skin exam: Present: warm, dry, intact, normal color Course Course Narrative: Patient seen and examined. Patient appears to be in no acute respiratory distress. Patient will get basic labs, EKG chest x-ray. Disposition pending. - Reevaluation(s) Reevaluation #1: Patient is updated on plan of care. Patient is aware that she is likely to undergo thoracentesis by pulmonary. Time: 13:06 - Consultations Consultation #1: Attempting to page the cook helper. Time: 12:43 Consultation #2: Spoke with pulmonary who will perform the thoracentesis. Time: 12:49 Vital Signs Temperature 97.4 F L 05/09/17 11:15 Pulse Rate 84 05/09/17 11:15 Respiratory Rate 18 05/09/17 11:15 Blood Pressure 128/83 05/09/17 11:15 O2 Sat by Pulse Oximetry 96 05/09/17 11:15 Temperature 97.4 F L 05/09/17 11:15 Pulse Rate 72 05/09/17 12:54 Respiratory Rate 22 05/09/17 12:54 Blood Pressure 137/69 05/09/17 12:54 O2 Sat by Pulse Oximetry 96 05/09/17 12:54 Oxygen Delivery Oxygen Delivery Room Air Medical Decision Making - [facility] Narrative Medical decision making narrative: Patient presents with concerns of dyspnea. Patient does have a history of primary biliary cirrhosis as had recurrent right-sided pleural effusions. Patient with hospitalist twice in the past couple weeks. Patient notes worsening dyspnea upon hospital discharge. Patient's ED evaluation shows a recurrent stable pleural effusion. Discussed case with the cook helper who agrees to inpatient admission under the hospitalist service with ulnar consult for drainage. Patient is not in any acute respiratory distress. Looking back it appears that the patient's pleural fluid was transudate in nature likely secondary to the patient's hepatic cirrhosis. Patient has been evaluated by GI during those conversations and has had several banding's of varices. Patient currently is denying any GI symptoms. Patient's hemoglobin appears stable. Patient does have follow-up arranged with GI. Patient will be admitted to the hospital service with pulmonary consult. Patient was updated on plan of care. The patient may benefit from further cardiopulmonary evaluation including a recent echo. - Lab Data Lab results reviewed: Yes I reviewed the patient's lab results. Result diagrams: 05/09/17 12:18 05/09/17 12:18 Lab Results 05/09/17 05/09/17 05/09/17 Range/Units 12:18 12:18 12:18 WBC 4.5 (4.3-11.1) K/mcL RBC 3.79 L (3.82-4.97) M/mcL Hgb 11.6 (11.5-15.4) g/dL Hct 35.7 (35.3-44.9) % MCV 94.2 (83.0-100.0) fL MCH 30.6 (28.0-33.3) pg MCHC 32.5 (31.6-35.5) g/dL RDW 14.7 H (11.5-14.5) % Plt Count 108 L (140-400) K/mcL MPV 10.3 (9.4-12.4) fL Immature Gran % 0.4 (0-4) % Seg Neutrophils % 60.3 % Lymphocytes % 20.0 % Monocytes % 9.3 % Eosinophils % 8.4 % Basophils % 1.6 % Neutrophils # 2.7 (1.6-8.9) K/mcL Lymphocytes # 0.9 (0.6-4.6) K/mcL Monocytes # 0.4 (0.0-1.3) K/mcL Eosinophils # 0.4 (0.0-0.6) K/mcL Basophils # 0.1 (0.0-0.2) K/mcL PT 10.8 (9.4-12.1) Seconds INR 1.0 Sodium 137 (136-145) mEq/L Potassium 4.3 (3.5-5.1) mEq/L Chloride 107 (98-107) mEq/L Carbon Dioxide 24 (23-29) mEq/L BUN 18 (8-23) mg/dL Creatinine 0.84 (0.60-1.20) mg/dL Est GFR ( Amer) > 60 (> 60) Est GFR (Non-Af Amer) > 60 (> 60) BUN/Creatinine Ratio 21 (6-26) Glucose 164 H (70-105) mg/dL Calculated Osmolality 290 (280-300) Calcium 8.8 (8.6-10.3) mg/dL Total Bilirubin 0.6 (0.3-1.0) mg/dL Direct Bilirubin 0.2 (0.0-0.2) mg/dL Indirect Bilirubin 0.4 (0.0-1.2) mg/dL AST 49 H (13-39) Units/L ALT 30 (7-52) Units/L Alkaline Phosphatase 144 H (34-104) Units/L Lactate Dehydrogenase 269 (140-271) Units/L Troponin I 0.03 (< 0.04) ng/mL B-Natriuretic Peptide (Less than 100) pg/mL Serum Total Protein 6.0 L (6.4-8.9) g/dL Albumin 3.1 L (3.5-5.7) g/dL Globulin 2.9 (2.4-3.5) g/dL Albumin/Globulin Ratio 1.1 (1.1-2.2) Blood Type Antibody Screen 05/09/17 05/09/17 Range/Units 12:18 12:18 WBC (4.3-11.1) K/mcL RBC (3.82-4.97) M/mcL Hgb (11.5-15.4) g/dL Hct (35.3-44.9) % MCV (83.0-100.0) fL MCH (28.0-33.3) pg MCHC (31.6-35.5) g/dL RDW (11.5-14.5) % Plt Count (140-400) K/mcL MPV (9.4-12.4) fL Immature Gran % (0-4) % Seg Neutrophils % % Lymphocytes % % Monocytes % % Eosinophils % % Basophils % % Neutrophils # (1.6-8.9) K/mcL Lymphocytes # (0.6-4.6) K/mcL Monocytes # (0.0-1.3) K/mcL Eosinophils # (0.0-0.6) K/mcL Basophils # (0.0-0.2) K/mcL PT (9.4-12.1) Seconds INR Sodium (136-145) mEq/L Potassium (3.5-5.1) mEq/L Chloride (98-107) mEq/L Carbon Dioxide (23-29) mEq/L BUN (8-23) mg/dL Creatinine (0.60-1.20) mg/dL Est GFR ( Amer) (> 60) Est GFR (Non-Af Amer) (> 60) BUN/Creatinine Ratio (6-26) Glucose (70-105) mg/dL Calculated Osmolality (280-300) Calcium (8.6-10.3) mg/dL Total Bilirubin (0.3-1.0) mg/dL Direct Bilirubin (0.0-0.2) mg/dL Indirect Bilirubin (0.0-1.2) mg/dL AST (13-39) Units/L ALT (7-52) Units/L Alkaline Phosphatase (34-104) Units/L Lactate Dehydrogenase (140-271) Units/L Troponin I (< 0.04) ng/mL B-Natriuretic Peptide 192 H (Less than 100) pg/mL Serum Total Protein (6.4-8.9) g/dL Albumin (3.5-5.7) g/dL Globulin (2.4-3.5) g/dL Albumin/Globulin Ratio (1.1-2.2) Blood Type B POSITIVE Antibody Screen NEGATIVE - Radiology Data Radiology results reviewed: Yes I reviewed the patient's radiology results. Chest X-Ray 05/09/17 11:44 IMPRESSION: Stable exam from 05/05/2017, with dense opacification of right mid to lower lung zones correlating with likely large right pleural effusion with associated underlying atelectasis. Other underlying pathology not excluded. No new or worsening acute cardiopulmonary process noted. D/ / 05/09/2017 12:17:22 Randy Flores MD / [facility]old Interpreting Provider: Randy Flores MD - EKG Data EKG #1 EKG attestation: Yes I reviewed and interpreted this EKG. EKG shows normal: sinus rhythm Rate: normal Rhythm: NSR [place]/QRS: normal T wave inversions noted in: aVR, v1, v2 Interpretation: no acute changes, unchanged when compared to prior tracing (date ), nonspecific ST-T wave changes SFaisal - Kari Situation: Demographics Background: Presenting Complaint Assessment: Vital Signs, Course and respsone to treatment, Patient/Family Expectation Recommendation: Barrier(s) to disposition, Recommendation based on pending studies, treatments, or consults SFaisal Report Given to: Dr. Rebekah Pierce Repor Time: 13:06
[2017-05-09 12:38] LABS: Basophils # 0.1 K/mcL (0.0-0.2); Basophils % 1.6 %; Eosinophils # 0.4 K/mcL (0.0-0.6); Eosinophils % 8.4 %; Hematocrit 35.7 % (35.3-44.9); Hemoglobin 11.6 g/dL (11.5-15.4); Immature Granulocytes % 0.4 % (0-4); Lymphocytes # 0.9 K/mcL (0.6-4.6); Mean Corpuscular HGB Conc 32.5 g/dL (31.6-35.5); Mean Corpuscular Hemoglobin 30.6 pg (28.0-33.3); Mean Corpuscular Volume 94.2 fL (83.0-100.0); Mean Platelet Volume 10.3 fL (9.4-12.4); Monocytes # 0.4 K/mcL (0.0-1.3); Monocytes % 9.3 %; Neutrophils # 2.7 K/mcL (1.6-8.9); Platelet Count 108 K/mcL (140-400); Red Blood Count 3.79 M/mcL (3.82-4.97); Red Cell Distribution Width 14.7 % (11.5-14.5); Segmented Neutrophils % 60.3 %
[2017-05-09 12:45] LABS: Prothrombin Time 10.8 Seconds (9.4-12.1)
[2017-05-09 12:55] LABS: Alanine Aminotransferase 30 Units/L (7-52); Albumin 3.1 g/dL (3.5-5.7); Albumin/Globulin Ratio 1.1 (1.1-2.2); Alkaline Phosphatase 144 Units/L (34-104); Aspartate Amino Transferase 49 Units/L (13-39); BUN/Creatinine Ratio 21 (6-26); Bilirubin,Direct 0.2 mg/dL (0.0-0.2); Bilirubin,Indirect 0.4 mg/dL (0.0-1.2); Bilirubin,Total 0.6 mg/dL (0.3-1.0); Blood Urea Nitrogen 18 mg/dL (8-23); Calcium 8.8 mg/dL (8.6-10.3); Carbon Dioxide 24 mEq/L (23-29); Chloride 107 mEq/L (98-107); Globulin 2.9 g/dL (2.4-3.5); Glucose 164 mg/dL (70-105); Osmolality,Calculated 290 (280-300); Potassium 4.3 mEq/L (3.5-5.1); Sodium 137 mEq/L (136-145); Troponin I 0.03 ng/mL (< 0.04); eGFR For African Americans > 60 (> 60); eGFR For Non-African Americans > 60 (> 60)
[2017-05-09 13:03] LABS: Lactate Dehydrogenase 269 Units/L (140-271)
--- NOTE | 2017-05-09 14:05 | Internal Med History&Physical ---
Date of Encounter: 05/09/17 Time of Encounter: 13:45 Assessment and Plan (1) Pleural effusion Current visit: Yes Status: Acute Patient has recurrent right-sided pleural effusion from liver cirrhosis. Last thoracentesis was May 05 with 1.1 out. Pulmonary was called from ED physician . will have thoracentesis again, will check TTE (2) Primary biliary cirrhosis Current visit: Yes Status: Chronic continue home meds (3) Pancytopenia Current visit: No Status: Acute from PBC, stable and improved (4) Esophageal varices Current visit: No Status: Chronic s/p banding on 05/01, Hb improved Qualifiers: Esophageal varices type: secondary Esophageal varices bleeding: without bleeding Qualified Code(s): I85.10 - Secondary esophageal varices without bleeding (5) Essential hypertension Current visit: Yes Status: Chronic Internal Medicine - H&P: HPI Chief complaint: SOB Admitted From: Home Plans for Post Hospital Care: Home History of present illness: Ms. Roy is a 76 year old female who has hx PBC, cirrhosis, pancytopenia, GI bleeding from varices, recurrent right pleural effusion who presented ER with worsening shortness of breath. CXR showed a large right pleural effusion. Patient was recently discharged on 05/06 after 1.1 L throracentesis. She also had GI bleeidng wich required 3 units of blood transfusion, s/p bandin luis a 2017. Colonoscopy on 05/02/17 revealed internal hemorrhoids and multiple colonic angioectasias treated with argon plasma coagulation. Since returning home she developed progressive shortness of breath that is worse on exertion around her house with no improving factors. She was on 2 L at night, now she has to wear continous O2. Patient has been SOB after discharge, she said thoracentesis helped her SOB, but very quickly fluids built up. Patient denies chest pain, no fever and productive cough. Labs are unremarkable. Patient is going to be admitted for right pleural effusion, will check TTE to r/o cardaic codition. A Past Med Surg Social Fam HX - Past Medical History Medical history: non-contributory, GI bleed Psychiatric history: no psych history - Past Surgical History Surgical History: breast surgery, cataract, hysterectomy - Social History Smoking Status: Former smoker Smokeless Tobacco Status: No Alcohol use: occasionally Drug use: none - Family History Father Hx Family Cancer: Yes Mother Hx Family GI Disorders: Yes (liver disease) Sister Adopted: No Living Status: Hx Family Cardiac Disorders: Yes Internal Medicine - H&P: Meds Calcium Carbonate/Vitamin D3 [Calcium 600-Vit D3 200 Tablet] 1 tab PO DAILY 09/25 [History] Escitalopram [Lexapro] 15 mg PO DAILY 12/19/15 [History] LORazepam [Ativan] 0.5 - 1 mg PO HS 12/19/15 [History] Levothyroxine [Synthroid] 75 mcg PO DAILY 12/19/15 [History] Multivitamin [Multi-Day Vitamins] 1 tab PO DAILY 12/19/15 [History] Ursodiol 300 mg PO TID 12/19/15 [History] Lisinopril 2.5 mg PO DAILY 05/05/17 [History] Metoprolol Succinate [Toprol Xl] 50 mg PO DAILY 05/05/17 [History] raNITIdine HCl [Ranitidine HCl] 150 mg PO BID 05/09/17 [History] 3 Allergy/AdvReac Type Severity Reaction Status Date / Time acetaminophen [From Vicodin] AdvReac See Verified 05/09/17 13:13 Comments Amoxicillin [From Augmentin] AdvReac See Verified 05/09/17 13:13 Comments azithromycin AdvReac See Verified 05/09/17 13:13 Comments clavulanic acid AdvReac See Verified 05/09/17 13:13 [From Augmentin] Comments codeine AdvReac See Verified 05/09/17 13:13 Comments hydrocodone [From Vicodin] AdvReac See Verified 05/09/17 13:13 Comments meperidine [From Demerol] AdvReac Hallucinati Verified 05/09/17 13:13 ng sertraline [From Zoloft] AdvReac See Verified 05/09/17 13:13 Comments sulfamethoxazole AdvReac See Verified 05/09/17 13:13 [From Bactrim] Comments trimethoprim [From Bactrim] AdvReac See Verified 05/09/17 13:13 Comments All Systems PM: A 10-system review of systems was performed and is negative for pertinent findings except as documented above in the HPI. - Constitutional Vitals: Temp Pulse Resp BP Pulse Ox 97.4 F L 72 22 137/69 96 05/09/17 11:15 05/09/17 12:54 05/09/17 12:54 05/09/17 12:54 05/09/17 12:54 General appearance: Present: A&O X 3, pleasant, underweight Exam: CONSTITUTIONAL: Patient appears as an age appropriate female well developed, in no acute distress. EYES Clear sclerae, bilateral pupils are equal, reactive to light and accommodation. Extraocular movements are intact RESPIRATORY: No accessory muscle use, bilateral clear to auscultation, no wheezing, no crackles/rales. CARDIOVASCULAR: Regular heart rate, normal S1 and S2, no murmurs GASTROINTESTINAL: bowel sounds present, soft, no tenderness. No hepatosplenomegaly. No bilateral CVA tenderness MUSCULOSKELETAL: Joints in normal range of motion, no clubbing, no edema, no cyanosis. Bilateral peripheral pulses 2+ LYMPHATIC no lymphadenopathy in neck, groin and axilla bilaterally, no thyromegaly. NEUROLOGIC: CN II to XII are grossly intact, no focal neurological deficit. Deep tendon reflexes 2+ bilaterally. Normal light touch sensation to upper and lower extremity PSYCHIATRIC: Oriented x3, with good insight, mood is euthymic. No hallucinations or delusions. SKIN: Skin warm and dry, no rashes, no open wound. Internal Med - H&P Results - Labs CBC & Chem 7: 05/09/17 12:18 05/09/17 12:18
[2017-05-09] MEDS ORDERED: Naloxone 0.4 MG/ML INJ IVP PRN (14:16)
--- NOTE | 2017-05-09 15:14 | Procedure Note ---
<LizamaRandy - Last Filed: 05/09/17 15:15> Date of procedure: 05/09/17 Pre-op diagnosis: RIGHT RECURRENT PLEURAL EFFUSION Post-op diagnosis: same Procedure: Right thoracentesis Performed under the direct supervision of Dr. Alysia Tavera A time-out was completed verifying correct patient, procedure, site, positioning , and special equipment if applicable. The patients RIGHT side was prepped and draped in a sterile manner after the appropriate infiltration level was confirmed by ultrasound. 1% lidocaine was used anesthetize the surrounding skin. A finer needle was then used to locate fluid and clear yellow fluid was obtained. A 10-blade scalpel used to make the incision. The thoracentesis catheter was then threaded without difficulty. The patient had 1500 of clear yellow fluid removed. Attending Dr. Tavera was present for the entire procedure. A post-procedure chest x-ray was ordered and the fluid will be sent for several studies. Estimated Blood Loss: 0 cc The patient tolerated the procedure well and there were no complications. Consent Obtained: written consent Time Out Performed: Yes Local Anesthetic: lidocaine 1% Amount of anesthesia used (mL): 7 Fluid: clear Post Procedure Exam: awake, alert, normal BP, normal HR, normal SpO2 Patient Tolerated Procedure: well, no complications Complications: none Anesthesia: local (lidocaine 7 mL) Was there an special events assistant present: No Estimated blood loss (cc): 0 Specimen: pleural fluid Condition: stable Disposition: floor <Alysia Tavera S - Last Filed: 05/09/17 19:58> Procedure: I was present during the the entire procedure assisted in the critical portions of the procedure . The patient tolerated the procedure well , 1.5 liter of fluid was removed . Patient tolerated the procedure well
--- NOTE | 2017-05-09 15:22 | Pulmonology Consult Note ---
<Randy Lizama - Last Filed: 05/09/17 17:14> Date of Encounter: 05/09/17 Time of Encounter: 15:22 Assessment and Plan (1) Pleural effusion on right Current Visit: Yes Status: Acute recurrent right pleural effusion secondary to chronic liver disease drained 1.5L pleural fluid at bedside - fluid is clear yellow lab analysis pending may consider PleurX catheter vs. recurrent thoracentesis repeat CXR post-thoracentesis with moderate right pleural effusion decreased from prior, no pneumothorax (2) Primary biliary cirrhosis Current Visit: Yes Status: Chronic follows with Dr. Figueroa outpatient History of Present Illness Consult date: 05/09/17 Requesting physician: Rayo Pelaez Reason for consult: pleural effusion (RECURRENT) Chief complaint: Shortness of breath History of present illness: Gissel is a 76-year-old female history of primary biliary cirrhosis, G.I. bleed from varices, recurrent right pleural effusion was sent to the emergency department at [facility] for worsening shortness of breath. Patient follows with pulmonology at [facility]. She was recently discharged on 05/06 for G.I. bleed and pleural effusion. On 05/05/2017 she had a thoracentesis and removed 1.1 L. She denies any recent illness. She denies any chest pain. Chest x-ray showed a large recurrent right pleural effusion. Patient was evaluated in the emergency department and had bedside thoracentesis with 1.5 L. See procedure note for further details. Fluid sent for analysis. Past Med Surg Social Fam HX - Past Medical History Medical history: non-contributory, GI bleed Psychiatric history: no psych history - Past Surgical History Surgical History: breast surgery, cataract, hysterectomy - Social History Smoking Status: Former smoker Smokeless Tobacco Status: No Alcohol use: occasionally Drug use: none - Family History Father Hx Family Cancer: Yes Mother Hx Family GI Disorders: Yes (liver disease) Sister Adopted: No Living Status: Hx Family Cardiac Disorders: Yes Medications and Allergies Calcium Carbonate/Vitamin D3 [Calcium 600-Vit D3 200 Tablet] 1 tab PO DAILY 09/25 [History] Escitalopram [Lexapro] 15 mg PO DAILY 12/19/15 [History] LORazepam [Ativan] 0.5 - 1 mg PO HS 12/19/15 [History] Levothyroxine [Synthroid] 75 mcg PO DAILY 12/19/15 [History] Multivitamin [Multi-Day Vitamins] 1 tab PO DAILY 12/19/15 [History] Ursodiol 300 mg PO TID 12/19/15 [History] Lisinopril 2.5 mg PO DAILY 05/05/17 [History] Metoprolol Succinate [Toprol Xl] 50 mg PO DAILY 05/05/17 [History] raNITIdine HCl [Ranitidine HCl] 150 mg PO BID 05/09/17 [History] 3 Allergy/AdvReac Type Severity Reaction Status Date / Time acetaminophen [From Vicodin] AdvReac See Verified 05/09/17 13:13 Comments Amoxicillin [From Augmentin] AdvReac See Verified 05/09/17 13:13 Comments azithromycin AdvReac See Verified 05/09/17 13:13 Comments clavulanic acid AdvReac See Verified 05/09/17 13:13 [From Augmentin] Comments codeine AdvReac See Verified 05/09/17 13:13 Comments hydrocodone [From Vicodin] AdvReac See Verified 05/09/17 13:13 Comments meperidine [From Demerol] AdvReac Hallucinati Verified 05/09/17 13:13 ng sertraline [From Zoloft] AdvReac See Verified 05/09/17 13:13 Comments sulfamethoxazole AdvReac See Verified 05/09/17 13:13 [From Bactrim] Comments trimethoprim [From Bactrim] AdvReac See Verified 05/09/17 13:13 Comments All Systems: The remainder of the systems were reviewed and are negative - Constitutional Constitutional: no chills, no fever(s) - Cardiovascular Cardiovascular: dyspnea, dyspnea on exertion, no chest pain - Respiratory Respiratory: dyspnea, no cough, no hemoptysis - Gastrointestinal Gastrointestinal: no abdominal pain, no nausea, no vomiting Physical Examination Vital Signs: Vital Signs, Last 4 Hours Temp Pulse Resp BP Pulse Ox 05/09/17 15:13 97.4 F L 77 16 133/78 93 05/09/17 14:59 18 154/59 05/09/17 14:27 68 16 144/59 100 General appearance: alert, other (Mild respiratory distress) Eyes: nonicteric ENT: oropharynx moist Neck: supple Effort: mildly labored Auscultation: right: diminished breath sounds, rales Cardiovascular: regular rate and rhythm Gastrointestinal: normoactive bowel sounds, soft, non-tender, non-distended Integumentary: normal, other (numerous seborrheic keratoses) Extremities: no cyanosis, no edema, no clubbing Musculoskeletal: no deformities, ROM normal normal mental status, non-focal exam, motor strength normal and symmetric mood appropriate, affect normal Results - Laboratory Findings CBC and BMP: 05/09/17 12:18 05/09/17 12:18 PT/INR, D-dimer PT 10.8 Seconds (9.4-12.1) 05/09/17 12:18 Abnormal lab findings: Abnormal lab results RBC 3.79 M/mcL (3.82-4.97) L 05/09/17 12:18 RDW 14.7 % (11.5-14.5) H 05/09/17 12:18 Plt Count 108 K/mcL (140-400) L 05/09/17 12:18 Glucose 164 mg/dL (70-105) H 05/09/17 12:18 AST 49 Units/L (13-39) H 05/09/17 12:18 Alkaline Phosphatase 144 Units/L (34-104) H 05/09/17 12:18 B-Natriuretic Peptide 192 pg/mL (Less than 100) H 05/09/17 12:18 Serum Total Protein 6.0 g/dL (6.4-8.9) L 05/09/17 12:18 Albumin 3.1 g/dL (3.5-5.7) L 05/09/17 12:18 Consult Discharge Plan - Plan Referrals: Lanny Rogers, INSOLE TACKER [Primary Care Provider] - <Alysia Tavera - Last Filed: 05/09/17 20:17> Date of Encounter: 05/09/17 All Systems: The remainder of the systems were reviewed and are negative Physical Examination Vital Signs: Vital Signs, Last 4 Hours Temp Pulse Resp BP Pulse Ox 05/09/17 18:49 97.8 F 76 18 136/68 90 Results - Laboratory Findings CBC and BMP: 05/09/17 12:18 05/09/17 12:18 PT/INR, D-dimer PT 10.8 Seconds (9.4-12.1) 05/09/17 12:18 Abnormal lab findings: Abnormal lab results RBC 3.79 M/mcL (3.82-4.97) L 05/09/17 12:18 RDW 14.7 % (11.5-14.5) H 05/09/17 12:18 Plt Count 108 K/mcL (140-400) L 05/09/17 12:18 Glucose 164 mg/dL (70-105) H 05/09/17 12:18 AST 49 Units/L (13-39) H 05/09/17 12:18 Alkaline Phosphatase 144 Units/L (34-104) H 05/09/17 12:18 B-Natriuretic Peptide 192 pg/mL (Less than 100) H 05/09/17 12:18 Serum Total Protein 6.0 g/dL (6.4-8.9) L 05/09/17 12:18 Albumin 3.1 g/dL (3.5-5.7) L 05/09/17 12:18 - Clinical Findings Intake & Output: Intake & Output 05/09/17 05/09/17 05/09/17 07:59 15:59 23:59 Intake Total 0 / 0 240 / 240 Output Total 0 / 0 Balance 0 / 0 240 / 240 Weight 54.431 kg - Attending Attestation - Attending Attestation I saw and evaluated this patient and my medical decision-making was reviewed with the Resident Physician. I agree with the documented findings, disposition and treatment plan as described except to the extent set forth below. We independently had [id number] contact with the patient I Patient seen and examined at bedside Labs, radiology, chart personally reviewed. Patient presenting with worsening shortness of breadth , patient was recently had a therapeutic thoracentesis for right sided pleural effusion secondary to primary billiary cirrhosis . She was discharged recently early this week after she got a therapeutic thoracentesis will observe her overnight will discharge tomorrow . Will arrange Pleurex catheter as an outpatient with next week Will follow up discharge .
[2017-05-09 16:56] LABS: RBC,Pleural Fluid < 0.002 M/mcL
[2017-05-09 17:00] LABS: Appearance of Pleural Fl Clear (Clear)
[2017-05-09 17:21] LABS: Amylase,Pleural Fluid 44 Units/L (No Ref Range); Glucose,Pleural Fluid 119 mg/dL (No Ref Range); LDH,Pleural Fluid 49 Units/L (No Ref Range); Total Protein,Pleural Fluid < 3.0 g/dL (No Ref Range); Triglycerides, Pleural Fluid 28 mg/dL (No Ref Range)
[2017-05-09] MEDS: Famotidine 20 MG TABLET PO SCH (20:14)
[2017-05-09] MEDS ORDERED: *HR* LORazepam 0.5 MG TABLET PO SCH (21:00)
[2017-05-10 05:42] LABS: Red Cell Distribution Width 14.6 % (11.5-14.5)
[2017-05-10 05:44] LABS: Hematocrit 30.7 % (35.3-44.9); Immature Platelets 3.8 % (1.1-6.1); Mean Corpuscular HGB Conc 32.6 g/dL (31.6-35.5); Mean Corpuscular Hemoglobin 30.2 pg (28.0-33.3); Mean Corpuscular Volume 92.7 fL (83.0-100.0); Mean Platelet Volume 9.9 fL (9.4-12.4); Red Blood Count 3.31 M/mcL (3.82-4.97)
[2017-05-10 05:56] LABS: BUN/Creatinine Ratio 20 (6-26); Blood Urea Nitrogen 18 mg/dL (8-23); Carbon Dioxide 24 mEq/L (23-29); Chloride 108 mEq/L (98-107); Glucose 81 mg/dL (70-105); Osmolality,Calculated 287 (280-300); Potassium 4.1 mEq/L (3.5-5.1); Sodium 138 mEq/L (136-145); eGFR For African Americans > 60 (> 60); eGFR For Non-African Americans > 60 (> 60)
[2017-05-10] MEDS ORDERED: Metoprolol XL (24 HR) Succ 50 MG TAB.ER.24H PO SCH (09:00)
[2017-05-10] MEDS ORDERED: Cholecalciferol (D-3) 1,000 UNIT TABLET PO SCH (09:00)
[2017-05-10] MEDS: Famotidine 20 MG TABLET PO SCH (09:32)
--- NOTE | 2017-05-10 11:14 | Pulmonology Progress Note ---
Date of Encounter: 05/10/17 Time of Encounter: 11:00 Assessment and Plan (1) Pleural effusion on right Status: Acute Recurrent pleural effusion secondary to chronic liver disease( Primary Billiary cirrhosis) and some diastolic dysfunction gave option of pleurex catheter on friday with patient declined it wants to some diuretics told her to check BMP in 1 week with her PCP .If the symptoms worsen ask her to call our office for pleurex catheter . Subjective Principal diagnosis: Recurrent Right sided pleural effusion Interval history: After the thoracentesis patient is feeling whole lot better , denies any chest pain or tightness , post procedural CXR showed residual right sided pleural with no pneumothorax . Patient wants to go home . Objective PUL Vital signs: Last Vital Signs Temp 97.7 F 05/10/17 06:37 Pulse 86 05/10/17 06:37 Resp 14 05/10/17 06:37 BP 102/56 05/10/17 06:37 Pulse Ox 92 05/10/17 06:37 Auscultation: right: diminished breath sounds (in the base ) Results - Laboratory Findings CBC and BMP: 05/10/17 04:42 05/10/17 04:42 PT/INR, D-dimer PT 10.8 Seconds (9.4-12.1) 05/09/17 12:18 Abnormal lab findings: Abnormal lab results WBC 4.0 K/mcL (4.3-11.1) L 05/10/17 04:42 RBC 3.31 M/mcL (3.82-4.97) L 05/10/17 04:42 Hgb 10.0 g/dL (11.5-15.4) L D 05/10/17 04:42 Hct 30.7 % (35.3-44.9) L 05/10/17 04:42 RDW 14.6 % (11.5-14.5) H 05/10/17 04:42 Plt Count 92 K/mcL (140-400) L 05/10/17 04:42 Chloride 108 mEq/L (98-107) H 05/10/17 04:42 Calcium 8.0 mg/dL (8.6-10.3) L 05/10/17 04:42 AST 49 Units/L (13-39) H 05/09/17 12:18 Alkaline Phosphatase 144 Units/L (34-104) H 05/09/17 12:18 B-Natriuretic Peptide 250 pg/mL (Less than 100) H 05/10/17 04:42 Serum Total Protein 6.0 g/dL (6.4-8.9) L 05/09/17 12:18 Albumin 3.1 g/dL (3.5-5.7) L 05/09/17 12:18 - Clinical Findings Intake & Output: Intake & Output 05/09/17 05/10/17 05/10/17 23:59 07:59 15:59 Intake Total 540 / 540 Balance 540 / 540 Weight 53.7 kg Consult Discharge Plan - Plan Instructions: Furosemide (By mouth), Potassium Chloride (By mouth) Additional Instructions: Follow up with PCP in 2-3 days after discharge. Repeat BMP at that time. PCP can follow up on hospital ECHO results (read pending). Follow up with pulmonlogy if needed for recurrent pleural effusions. Referrals: Lanny Rogers, UPSTAIRS MAID [Primary Care Provider] - (call friday for follow up ) Prescriptions: Furosemide [Lasix] 20 mg PO DAILY 7 Days #7 tablet Potassium Chloride 20 meq PO DAILY 7 Days #7 tab.er.prt
[2017-05-10 12:14] VITALS: BP 111/58
--- NOTE | 2017-05-10 14:55 | Discharge Summary ---
- NOTES TO OUTPATIENT PROVIDER Notes to Outpatient Provider: Follow up with PCP in 2-3 days after discharge. Repeat BMP at that time. PCP can follow up on hospital ECHO results (read pending). Follow up with pulmonlogy if needed for recurrent pleural effusions. 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 Roy is a 76 year old female admitted for SOB secondary to large right pleural effusion. She has history of recurrent pleural effusions secondary to primary biliary cirrhosis. She was admitted for observation to general medical floor. Pulmonology was consulted. Repeat ECHO was obtained; cardiology read is still pending. Environmental Protection Specialist performed thoracentesis and removed about 1.5 L of pleural fluid. Patient is doing much better today. She states that SOB is resolved, and she is back to her baseline respirations. Pulmonology discussed consider PleurX catheter vs. diuresis/recurrent thoracentesis. She elected to start with conservative treatment and see if she can maintain with diuretics. She will be discharged on lasix 20 mg PO QD and potassium chloride 20 mEq PO QD. She will follow up with PCP in 2-3 days after discharge. BMP can be rechecked at that time. PCP can follow up on hospital ECHO results ( cardiology read still pending). She will follow up with pulmonlogy if needed for recurrent pleural effusions not controlled by diuretics. Patient has met maximum benefit of this hospitalization and will be discharged home in stable condition. Discharge discussed with: patient, nurse, marketing operations consultant (Environmental Protection Specialist) - Time Spent with Patient Total time spent providing and/or coordinating discharge services: Less than 30 minutes - Discharge Medications Prescriptions: Furosemide [Lasix] 20 mg PO DAILY 7 Days #7 tablet Potassium Chloride 20 meq PO DAILY 7 Days #7 tab.er.prt Home Medications: Calcium Carbonate/Vitamin D3 [Calcium 600-Vit D3 200 Tablet] 1 tab PO DAILY 09/25 [History] Escitalopram [Lexapro] 15 mg PO DAILY 12/19/15 [History] LORazepam [Ativan] 0.5 - 1 mg PO HS 12/19/15 [History] Levothyroxine [Synthroid] 75 mcg PO DAILY 12/19/15 [History] Multivitamin [Multi-Day Vitamins] 1 tab PO DAILY 12/19/15 [History] Ursodiol 300 mg PO TID 12/19/15 [History] Lisinopril 2.5 mg PO DAILY 05/05/17 [History] Metoprolol Succinate [Toprol Xl] 50 mg PO DAILY 05/05/17 [History] raNITIdine HCl [Ranitidine HCl] 150 mg PO BID 05/09/17 [History] Furosemide [Lasix] 20 mg PO DAILY 7 Days #7 tablet 05/10/17 [Rx] Potassium Chloride 20 meq PO DAILY 7 Days #7 tab.er.prt 05/10/17 [Rx] Allergies/Adverse Reactions: 3 Allergy/AdvReac Type Severity Reaction Status Date / Time acetaminophen [From Vicodin] AdvReac See Verified 05/09/17 13:13 Comments Amoxicillin [From Augmentin] AdvReac See Verified 05/09/17 13:13 Comments azithromycin AdvReac See Verified 05/09/17 13:13 Comments clavulanic acid AdvReac See Verified 05/09/17 13:13 [From Augmentin] Comments codeine AdvReac See Verified 05/09/17 13:13 Comments hydrocodone [From Vicodin] AdvReac See Verified 05/09/17 13:13 Comments meperidine [From Demerol] AdvReac Hallucinati Verified 05/09/17 13:13 ng sertraline [From Zoloft] AdvReac See Verified 05/09/17 13:13 Comments sulfamethoxazole AdvReac See Verified 05/09/17 13:13 [From Bactrim] Comments trimethoprim [From Bactrim] AdvReac See Verified 05/09/17 13:13 Comments Date of admission: 05/09/17 13:27 Primary care physician: Lanny Rogers CNP Consults: Pulmonology - Dr. Tavera Discharging clinician: Jason Castro Anticipated date of discharge: 05/10/17 - Constitutional Vitals: Temp Pulse Resp BP Pulse Ox 97.4 F L 77 16 111/58 91 05/10/17 12:09 05/10/17 12:09 05/10/17 12:09 05/10/17 12:09 05/10/17 12:09 General appearance: Present: cooperative, A&O X 3, pleasant, no acute distress, answers questions appropriately - Respiratory Respiratory exam: Present: CTAB. Absent: accessory muscle use, rales, rhonchi, wheezes Additional comments: Normal WOB - Cardiovascular Cardiovascular exam: Present: RRR, +S1, +S2. Absent: diastolic murmur, gallop, rubs, systolic murmur Additional comments: No BLE edema - GI/Abdominal GI/Abdominal exam: Present: normal bowel sounds, soft. Absent: distended, hepatomegaly, mass, splenomegaly, tenderness - Psychiatric Psychiatric exam: Present: normal affect, normal mood. Absent: anxious, depressed - Skin Skin exam: Present: dry, intact, warm. Absent: cyanosis, rash - Patient Status Disposition: Home, Self-Care Condition: Good Overall status at discharge: patient is progressing back to baseline - Discharge Instructions Follow Up With: Lanny Rogers [employer]PER[employer] [Primary Care Provider] - Additional Instructions: Follow up with PCP in 2-3 days after discharge. Repeat BMP at that time. PCP can follow up on hospital ECHO results (read pending). Follow up with pulmonlogy if needed for recurrent pleural effusions. - Diet and Activity Activity: resume usual activities as tolerated Diet: low fat, low cholesterol, low salt diet, other (Cardiac) - VTE Reasons for not Prescribing Prophylaxis: Treatment not Indicated - Low risk for VTE
--- NOTE | 2017-05-10 15:51 | Electrocardiograph Report ---
[place] [id number] Test Date: 2017-05-09 Pat Name: Gissel Roy Department: 102 Room: 2A Gender: F Benefits Coordinator: Ayesha : 1940 Requested By: Rayo Pelaez Order Number: [id number] Reading MD: Maddy Nunez Measurements Intervals [place] Rate: 75 P: 66 NH: 142 QRS: 78 QRSD: 81 T: 74 QT: 389 QTc: 418 Interpretive Statements SINUS RHYTHM POSSIBLE RIGHT VENTRICULAR CONDUCTION DELAY [RSR (QR) IN V1/V2] Electronically Signed On 05-10-2017 15:49:53 EDT by Maddy Nunez
[2017-05-11] MEDS ORDERED: Famotidine 20 MG TABLET PO SCH (09:00)
== END 2017-05-10 16:45 | disposition home or self-care (01) ==
LOC: EMEROO 11:12 → 2ANU 11:12
PROVIDERS: ADMIT Hospitalist; ATTEND Internal Medicine

== ENCOUNTER 2018-11-30 17:45 | Inpatient (IN) ==
[2018-11-30 19:47] LABS: Basophils # 0.1 K/mcL (0.0-0.2); Basophils % 1.1 %; Eosinophils # 0.5 K/mcL (0.0-0.6); Eosinophils % 8.6 %; Hematocrit 39.3 % (35.3-44.9); Hemoglobin 13.8 g/dL (11.5-15.4); Immature Granulocytes % 0.2 % (0-4); Lymphocytes # 1.1 K/mcL (0.6-4.6); Lymphocytes % 19.9 %; Mean Corpuscular HGB Conc 35.1 g/dL (31.6-35.5); Mean Corpuscular Hemoglobin 37.8 pg (28.0-33.3); Mean Corpuscular Volume 107.7 fL (83.0-100.0); Monocytes # 0.8 K/mcL (0.0-1.3); Neutrophils # 3.1 K/mcL (1.6-8.9); Platelet Count 100 K/mcL (140-400); Red Blood Count 3.65 M/mcL (3.82-4.97); Red Cell Distribution Width 13.7 % (11.5-14.5); Segmented Neutrophils % 56.2 %; White Blood Count 5.5 K/mcL (4.3-11.1)
[2018-11-30 19:50] LABS: Prothrombin Time 11.7 Seconds (9.4-12.1)
[2018-11-30 19:53] LABS: Activated Partial Thrombo Time 29.9 Seconds (26.0-36.0)
[2018-11-30 20:01] LABS: BUN/Creatinine Ratio 29 (6-26); Blood Urea Nitrogen 30 mg/dL (8-23); Calcium 9.4 mg/dL (8.6-10.3); Carbon Dioxide 23 mEq/L (23-29); Chloride 105 mEq/L (98-107); Glucose 98 mg/dL (70-105); Osmolality,Calculated 292 (280-300); Potassium 4.4 mEq/L (3.5-5.1); Sodium 138 mEq/L (136-145); eGFR For African Americans > 60 (> 60); eGFR For Non-African Americans 52 (> 60)
[2018-11-30 20:14] LABS: Macrocytosis Present (Not Present); Platelet Estimate Decreased (Normal)
[2018-11-30] MEDS ORDERED: Albuterol 2.5 MG/3 ML NEBULIZER IH PRN (21:17)
[2018-11-30] MEDS ORDERED: Naloxone 0.4 MG/ML INJ IVP PRN (21:17)
[2018-11-30] MEDS ORDERED: Morphine Sulfate 2 MG/ML SYRINGE IVP ONE (21:21)
[2018-11-30] MEDS: *HR* Heparin 5,000 UNIT/ML VIAL SQ SCH (22:03)
[2018-11-30] MEDS: Ipratropium/Albuterol Neb 3 ML IH SCH (22:26)
[2018-12-01] MEDS: Ipratropium/Albuterol Neb 3 ML IH SCH ×3 (04:12→16:01)
[2018-12-01 04:14] LABS: ABG Base Excess -3 mEq/L (-2 to 3); ABG HCO3 21 mEq/L (21-27); ABG Oxygen Saturation 92 % (95-98); ABG PCO2 34 mmHg (35-45); ABG PH 7.41 pH Units (7.32-7.45); ABG PO2 62 mmHg (85-104); ABG TCO2 22 mEq/L (20-26)
[2018-12-01 05:15] LABS: Immature Granulocytes % 0.2 % (0-4); Red Cell Distribution Width 13.7 % (11.5-14.5)
[2018-12-01 05:17] LABS: Basophils # 0.1 K/mcL (0.0-0.2); Basophils % 1.1 %; Eosinophils # 0.3 K/mcL (0.0-0.6); Eosinophils % 6.6 %; Hematocrit 37.1 % (35.3-44.9); Hemoglobin 13.1 g/dL (11.5-15.4); Immature Platelets 2.7 % (1.1-6.1); Lymphocytes # 1.2 K/mcL (0.6-4.6); Lymphocytes % 26.8 %; Mean Corpuscular HGB Conc 35.3 g/dL (31.6-35.5); Mean Corpuscular Hemoglobin 38.3 pg (28.0-33.3); Mean Corpuscular Volume 108.5 fL (83.0-100.0); Monocytes # 0.6 K/mcL (0.0-1.3); Monocytes % 12.9 %; Neutrophils # 2.4 K/mcL (1.6-8.9); Red Blood Count 3.42 M/mcL (3.82-4.97); Segmented Neutrophils % 52.4 %; White Blood Count 4.6 K/mcL (4.3-11.1)
[2018-12-01 05:21] LABS: Platelet Count 79 K/mcL (140-400); Platelet Estimate Decreased (Normal)
[2018-12-01 05:24] LABS: INR 1.1; Prothrombin Time 12.3 Seconds (9.4-12.1)
[2018-12-01 05:28] LABS: Activated Partial Thrombo Time 47.4 Seconds (26.0-36.0)
[2018-12-01 05:37] LABS: Alanine Aminotransferase 29 Units/L (7-52); Albumin 2.7 g/dL (3.5-5.7); Albumin/Globulin Ratio 0.8 (1.1-2.2); Alkaline Phosphatase 147 Units/L (34-104); Aspartate Amino Transferase 61 Units/L (13-39); BUN/Creatinine Ratio 28 (6-26); Bilirubin,Total 1.2 mg/dL (0.3-1.0); Blood Urea Nitrogen 29 mg/dL (8-23); C-Reactive Protein 30 mg/L (Less than 10); Calcium 9.1 mg/dL (8.6-10.3); Carbon Dioxide 22 mEq/L (23-29); Chloride 108 mEq/L (98-107); Chol/HDL Ratio 3.5 (0-4.9); Cholesterol 157 mg/dL (< 200); Globulin 3.3 g/dL (2.4-3.5); Glucose 68 mg/dL (70-105); HDL Cholesterol 45 mg/dL (40-59); LDL Cholesterol,Calculated 98 mg/dL (0-99); Magnesium 2.2 mg/dL (1.6-2.6); Osmolality,Calculated 288 (280-300); Phosphorous 4.6 mg/dL (2.7-4.5); Potassium 4.6 mEq/L (3.5-5.1); Sodium 137 mEq/L (136-145); Triglycerides 71 mg/dL (< 150); eGFR For African Americans > 60 (> 60); eGFR For Non-African Americans 52 (> 60)
[2018-12-01] MEDS: hydrOXYzine pamoate 25 MG CAPSULE PO PRN (05:37)
[2018-12-01] MEDS: *HR* Heparin 5,000 UNIT/ML VIAL SQ SCH ×3 (05:38→22:11)
[2018-12-01 05:51] LABS: Thyroid Stimulating Hormone 4.773 mcIU/mL (0.340-5.600)
[2018-12-01 07:04] LABS: Bilirubin,Urine Negative (Negative); Blood,Urine Negative (Negative); Clarity,Urine Clear (Clear); Color,Urine Yellow (Yellow); Glucose,Urine (UA) Normal (Normal); Ketones,Urine Trace mg/dL (Negative); Leukocyte Esterase,Urine Negative (Negative); Nitrite,Urine Negative (Negative); PH,Urine 5.5 pH Units (5.0-8.0); Protein,Urine Negative (Neg-Trace); Specific Gravity,Urine 1.025 (1.010-1.025); Urobilinogen,Urine Normal (Normal)
[2018-12-01] MEDS ORDERED: Metoprolol XL (24 HR) Succ 50 MG TAB.ER.24H PO SCH (09:00)
[2018-12-01] MEDS: Cholecalciferol (D-3) 1,000 UNIT (25MCG) TABLET PO SCH (09:39)
[2018-12-01] MEDS: Multivit/Ca/Min/Fe/FA 1 TAB TABLET PO SCH (09:39)
[2018-12-01] MEDS: Furosemide 20 MG TABLET PO SCH (09:40)
[2018-12-01] MEDS: Famotidine 20 MG TABLET PO SCH ×2 (09:40→20:00)
[2018-12-01] MEDS ORDERED: Ondansetron 4 MG/2 ML VIAL IVP PRN (10:43)
[2018-12-01] MEDS: Acetaminophen 325 MG TABLET PO PRN ×2 (11:32→18:38)
[2018-12-01] MEDS ORDERED: Albuterol 2.5 MG/3 ML NEBULIZER IH PRN (17:53)
[2018-12-01] MEDS ORDERED: Ipratropium/Albuterol Neb 3 ML IH PRN (17:54)
[2018-12-01] MEDS: *HR* LORazepam 0.5 MG TABLET PO SCH (19:58)
[2018-12-01] MEDS ORDERED: Albuterol 2.5 MG/3 ML NEBULIZER IH SCH (22:00)
[2018-12-02 02:33] LABS: Hematocrit 34.5 % (35.3-44.9); Hemoglobin 11.9 g/dL (11.5-15.4); Immature Platelets 3.1 % (1.1-6.1); Mean Corpuscular HGB Conc 34.5 g/dL (31.6-35.5); Mean Corpuscular Hemoglobin 38.3 pg (28.0-33.3); Mean Corpuscular Volume 110.9 fL (83.0-100.0); Mean Platelet Volume 10.4 fL (9.4-12.4); Red Blood Count 3.11 M/mcL (3.82-4.97); White Blood Count 6.1 K/mcL (4.3-11.1)
[2018-12-02 02:50] LABS: Calcium 8.3 mg/dL (8.6-10.3); Potassium 4.6 mEq/L (3.5-5.1)
[2018-12-02] MEDS ORDERED: 0.9 % Sodium Chloride 250 ML IVC ONE (03:46)
[2018-12-02] MEDS: Acetaminophen 325 MG TABLET PO PRN ×2 (05:06→21:50)
[2018-12-02] MEDS ORDERED: Albumin 25% 25gram/100mL 25 GM/100 ML IV.SOLN IVPB ONE (05:39)
[2018-12-02] MEDS: *HR* Heparin 5,000 UNIT/ML VIAL SQ SCH ×3 (05:51→21:53)
[2018-12-02] MEDS: Cholecalciferol (D-3) 1,000 UNIT (25MCG) TABLET PO SCH (08:18)
[2018-12-02] MEDS: Famotidine 20 MG TABLET PO SCH ×2 (08:18→19:48)
[2018-12-02] MEDS: Multivit/Ca/Min/Fe/FA 1 TAB TABLET PO SCH (08:18)
[2018-12-02] MEDS: Furosemide 20 MG TABLET PO SCH (08:27)
[2018-12-02] MEDS ORDERED: Hydrocortisone Sodium Succ 100 MG/2 ML VIAL IVP ONE (09:18)
[2018-12-02] MEDS ORDERED: 0.9 % Sodium Chloride 1,000 ML IVC SCH (12:00)
[2018-12-02 15:59] LABS: Hemoglobin 11.6 g/dL (11.5-15.4)
[2018-12-02] MEDS: hydrOXYzine pamoate 25 MG CAPSULE PO PRN (18:03)
[2018-12-02] MEDS: *HR* LORazepam 0.5 MG TABLET PO SCH (21:51)
[2018-12-03 02:48] LABS: Basophils % 0.4 %; Eosinophils % 0.4 %; Hematocrit 31.3 % (35.3-44.9); Hemoglobin 11.1 g/dL (11.5-15.4); Immature Granulocytes % 0.5 % (0-4); Immature Platelets 2.5 % (1.1-6.1); Lymphocytes # 0.9 K/mcL (0.6-4.6); Lymphocytes % 15.3 %; Mean Corpuscular HGB Conc 35.5 g/dL (31.6-35.5); Mean Corpuscular Hemoglobin 38.9 pg (28.0-33.3); Mean Corpuscular Volume 109.8 fL (83.0-100.0); Mean Platelet Volume 11.7 fL (9.4-12.4); Monocytes # 0.5 K/mcL (0.0-1.3); Monocytes % 9.3 %; Neutrophils # 4.2 K/mcL (1.6-8.9); Red Blood Count 2.85 M/mcL (3.82-4.97); Red Cell Distribution Width 13.4 % (11.5-14.5); Segmented Neutrophils % 74.1 %; White Blood Count 5.7 K/mcL (4.3-11.1)
[2018-12-03 02:53] LABS: Platelet Count 60 K/mcL (140-400)
[2018-12-03 05:04] LABS: Calcium 8.3 mg/dL (8.6-10.3); Potassium 4.8 mEq/L (3.5-5.1)
[2018-12-03] MEDS: *HR* Heparin 5,000 UNIT/ML VIAL SQ SCH ×3 (06:18→23:10)
[2018-12-03] MEDS: Multivit/Ca/Min/Fe/FA 1 TAB TABLET PO SCH (08:01)
[2018-12-03] MEDS: Cholecalciferol (D-3) 1,000 UNIT (25MCG) TABLET PO SCH (08:02)
[2018-12-03] MEDS: Famotidine 20 MG TABLET PO SCH ×2 (08:02→20:39)
[2018-12-03] MEDS: Acetaminophen 325 MG TABLET PO PRN (13:54)
[2018-12-03] MEDS: *HR* LORazepam 0.5 MG TABLET PO SCH (20:39)
[2018-12-04 04:44] LABS: Immature Granulocytes % 0.7 % (0-4)
[2018-12-04 04:46] LABS: Basophils # 0.1 K/mcL (0.0-0.2); Basophils % 0.9 %; Eosinophils # 0.3 K/mcL (0.0-0.6); Eosinophils % 5.8 %; Hematocrit 31.9 % (35.3-44.9); Immature Platelets 2.6 % (1.1-6.1); Lymphocytes # 1.5 K/mcL (0.6-4.6); Lymphocytes % 25.3 %; Mean Corpuscular HGB Conc 34.5 g/dL (31.6-35.5); Mean Corpuscular Hemoglobin 38.6 pg (28.0-33.3); Mean Corpuscular Volume 111.9 fL (83.0-100.0); Mean Platelet Volume 10.3 fL (9.4-12.4); Monocytes # 0.6 K/mcL (0.0-1.3); Monocytes % 9.9 %; Neutrophils # 3.4 K/mcL (1.6-8.9); Nucleated Red Blood Cells 0.3 /100 WBC (0); Red Blood Count 2.85 M/mcL (3.82-4.97); Red Cell Distribution Width 13.6 % (11.5-14.5); Segmented Neutrophils % 57.4 %; White Blood Count 5.9 K/mcL (4.3-11.1)
[2018-12-04 04:47] LABS: Platelet Count 78 K/mcL (140-400)
[2018-12-04 05:04] LABS: Calcium 8.5 mg/dL (8.6-10.3); Potassium 4.3 mEq/L (3.5-5.1)
[2018-12-04 05:09] LABS: Platelet Estimate Decreased (Normal)
[2018-12-04] MEDS: *HR* Heparin 5,000 UNIT/ML VIAL SQ SCH ×2 (05:32→15:10)
[2018-12-04] MEDS: Multivit/Ca/Min/Fe/FA 1 TAB TABLET PO SCH (08:31)
[2018-12-04] MEDS: Famotidine 20 MG TABLET PO SCH (08:32)
[2018-12-04] MEDS: Cholecalciferol (D-3) 1,000 UNIT (25MCG) TABLET PO SCH (08:32)
[2018-12-04] MEDS: Acetaminophen 325 MG TABLET PO PRN (09:40)
[2018-12-04] MEDS: Ipratropium/Albuterol Neb 3 ML IH SCH ×3 (10:41→15:17)
[2018-12-04 12:20] LABS: Albumin 2.7 g/dL (3.5-5.7); Bilirubin,Direct 0.3 mg/dL (0.0-0.2); Bilirubin,Indirect 0.5 mg/dL (0.0-1.0); Bilirubin,Total 0.8 mg/dL (0.3-1.0); Globulin 2.6 g/dL (2.4-3.5); Total Protein 5.3 g/dL (6.4-8.9)
[2018-12-04 12:23] VITALS: BP 109/60
== END 2018-12-04 17:21 | disposition home or self-care (01) | DRG 432 ==
LOC: EMEROOARM 17:45 → 2NENU 17:45 → SUATTDRO 23:35
PROVIDERS: ADMIT Family Medicine; ATTEND Internal Medicine

== ENCOUNTER 2019-02-18 07:07 | Inpatient (IN) ==
[2019-02-18 07:45] LABS: Basophils # 0.1 K/mcL (0.0-0.2); Basophils % 1.8 %; Eosinophils # 0.4 K/mcL (0.0-0.6); Eosinophils % 7.9 %; Hematocrit 41.4 % (35.3-44.9); Hemoglobin 14.3 g/dL (11.5-15.4); Immature Granulocytes % 0.7 % (0-4); Lymphocytes % 22.7 %; Mean Corpuscular HGB Conc 34.5 g/dL (31.6-35.5); Mean Corpuscular Hemoglobin 38.3 pg (28.0-33.3); Mean Platelet Volume 9.4 fL (9.4-12.4); Monocytes # 0.5 K/mcL (0.0-1.3); Monocytes % 11.7 %; Platelet Count 111 K/mcL (140-400); Red Blood Count 3.73 M/mcL (3.82-4.97); Red Cell Distribution Width 13.7 % (11.5-14.5); Segmented Neutrophils % 55.2 %; White Blood Count 4.4 K/mcL (4.3-11.1)
[2019-02-18 07:46] LABS: Neutrophils # 2.4 K/mcL (1.6-8.9)
[2019-02-18 07:52] LABS: Prothrombin Time 11.1 Seconds (9.4-12.1)
[2019-02-18 08:29] LABS: Macrocytosis Present (Not Present); Platelet Estimate Slight Decrease (Normal)
[2019-02-18] MEDS ORDERED: 0.9 % Sodium Chloride 500 ML ONE (08:43)
[2019-02-18] MEDS ORDERED: Heparin 1,000 UNITS/500 mL 500 ML ONE (08:43)
[2019-02-18] MEDS ORDERED: *HR* OxyCODONE Immed Rel 5 MG TABLET PO PRN (08:59)
[2019-02-18] MEDS ORDERED: *HR* Labetalol 20 MG/4 ML SYRINGE IVP PRN (08:59)
[2019-02-18] MEDS ORDERED: Ondansetron 4 MG/2 ML VIAL IVP ONE ×2 (08:59→17:17)
[2019-02-18] MEDS ORDERED: *HR* Promethazine 25 MG/ML VIAL IVP PRN (08:59)
[2019-02-18] MEDS ORDERED: *HR* FentaNYL (PF) 100 MCG/2 ML VIAL IVP PRN (08:59)
[2019-02-18] MEDS ORDERED: *HR* Vasopressin 20 UNIT/ML VIAL ONE (09:12)
[2019-02-18] MEDS ORDERED: *HR* FentaNYL (PF) 100 MCG/2 ML VIAL ONE (09:12)
[2019-02-18] MEDS ORDERED: Clindamycin 600 MG/50 ML 600 MG/50 ML IV.SOLN IVPB STA (10:29)
[2019-02-18] MEDS ORDERED: Isovue-300 50ML VIAL IVP ONE (11:03)
[2019-02-18] MEDS ORDERED: Naloxone 0.4 MG/ML INJ IVP PRN ×2 (11:48→12:03)
[2019-02-18] MEDS: Ondansetron 4 MG/2 ML VIAL IVP PRN ×2 (12:10→19:48)
[2019-02-18] MEDS ORDERED: 0.9 % Sodium Chloride 1,000 ML IVC SCH (13:00)
[2019-02-18 15:31] LABS: Albumin 2.4 g/dL (3.5-5.7); Albumin/Globulin Ratio 0.8 (1.1-2.2); Bilirubin,Total 1.3 mg/dL (0.3-1.0); Calcium 8.7 mg/dL (8.6-10.3); Globulin 3.1 g/dL (2.4-3.5); Potassium 6.7 mEq/L (3.5-5.1); Total Protein 5.5 g/dL (6.4-8.9)
[2019-02-18] MEDS: Albumin 25% 25gram/100mL 25 GM/100 ML IV.SOLN IVPB SCH ×2 (16:36→23:17)
[2019-02-18] MEDS ORDERED: Insulin Human Regular 10 UNIT in 0.9 % Sodium Chloride 10 ML IV ONE (17:03)
[2019-02-18] MEDS ORDERED: *HR* Dextrose 50 % in Water (Syg) 50 ML SYRINGE IVP ONE (17:03)
[2019-02-18] MEDS ORDERED: Calcium Gluconate 1gm/50mL 1 GM/50 ML BAG IVPB ONE (17:04)
[2019-02-18] MEDS ORDERED: Albuterol Neb 7.5 MG, Sodium Chloride for inhalation 12 ML IH ONE (17:07)
[2019-02-18] MEDS ORDERED: *HR* Phenylephrine 10 MG/ML VIAL IVC ONE (17:17)
[2019-02-18] MEDS ORDERED: 0.9 % Sodium Chloride 10 ML PF VIAL IVP ONE (17:17)
[2019-02-18] MEDS ORDERED: *HR* Propofol 200 MG/20 ML VIAL IVP ONE (17:17)
[2019-02-18] MEDS ORDERED: Lidocaine 2% Syringe 100 MG/5 ML IV ONE (17:17)
[2019-02-18] MEDS ORDERED: *HR* Succinylcholine 200 MG/10 ML VIAL IVP ONE (17:17)
[2019-02-18] MEDS: SODIUM ZIRCONIUM CYCLOSILICATE 5 GM POWD.PACK PO SCH (18:22)
[2019-02-18] MEDS ORDERED: Albuterol 2.5 MG/3 ML NEBULIZER IH ONE (18:25)
[2019-02-18] MEDS ORDERED: Albuterol 2.5 MG/3 ML NEBULIZER ONE (18:27)
[2019-02-18] MEDS ORDERED: 0.9 % Sodium Chloride 250 ML IVC ONE (23:13)
[2019-02-18] MEDS: 0.9 % Sodium Chloride 1,000 ML IVC SCH (23:19)
[2019-02-19 01:13] LABS: Calcium 9.2 mg/dL (8.6-10.3); Potassium 6.5 mEq/L (3.5-5.1)
[2019-02-19] MEDS ORDERED: SODIUM ZIRCONIUM CYCLOSILICATE 5 GM POWD.PACK PO ONE (01:23)
[2019-02-19] MEDS: Ondansetron 4 MG/2 ML VIAL IVP PRN ×4 (01:44→22:07)
[2019-02-19 04:56] LABS: Basophils % 0.1 %; Red Cell Distribution Width 14.2 % (11.5-14.5)
[2019-02-19 04:58] LABS: Hematocrit 35.7 % (35.3-44.9); Hemoglobin 12.1 g/dL (11.5-15.4); Immature Granulocytes % 0.5 % (0-4); Immature Platelets 1.7 % (1.1-6.1); Lymphocytes # 0.8 K/mcL (0.6-4.6); Mean Corpuscular HGB Conc 33.9 g/dL (31.6-35.5); Mean Corpuscular Hemoglobin 37.5 pg (28.0-33.3); Mean Corpuscular Volume 110.5 fL (83.0-100.0); Mean Platelet Volume 8.9 fL (9.4-12.4); Monocytes # 0.6 K/mcL (0.0-1.3); Monocytes % 6.5 %; Neutrophils # 7.1 K/mcL (1.6-8.9); Red Blood Count 3.23 M/mcL (3.82-4.97); Segmented Neutrophils % 83.9 %; White Blood Count 8.5 K/mcL (4.3-11.1)
[2019-02-19 05:03] LABS: Platelet Count 70 K/mcL (140-400)
[2019-02-19 05:11] LABS: Albumin 3.3 g/dL (3.5-5.7); Albumin/Globulin Ratio 1.3 (1.1-2.2); Bilirubin,Direct 0.7 mg/dL (0.0-0.2); Bilirubin,Indirect 1.2 mg/dL (0.0-1.0); Bilirubin,Total 1.9 mg/dL (0.3-1.0); Calcium 9.2 mg/dL (8.6-10.3); Globulin 2.5 g/dL (2.4-3.5); Phosphorous 4.7 mg/dL (2.7-4.5); Potassium 6.3 mEq/L (3.5-5.1); Total Protein 5.8 g/dL (6.4-8.9)
[2019-02-19 05:22] LABS: Macrocytosis Present (Not Present); Platelet Estimate Decreased (Normal)
[2019-02-19] MEDS: SODIUM ZIRCONIUM CYCLOSILICATE 5 GM POWD.PACK PO SCH ×3 (07:55→19:49)
[2019-02-19] MEDS: 0.9 % Sodium Chloride 1,000 ML IVC SCH (07:56)
[2019-02-19] MEDS: Albumin 25% 25gram/100mL 25 GM/100 ML IV.SOLN IVPB SCH (07:56)
[2019-02-19] MEDS ORDERED: SODIUM ZIRCONIUM CYCLOSILICATE 5 GM POWD.PACK PO SCH (11:15)
[2019-02-19 11:22] LABS: Bilirubin,Urine Negative (Negative); Blood,Urine Negative (Negative); Chloride,Urine < 15 mEq/L; Clarity,Urine Clear (Clear); Color,Urine Dark Yellow (Yellow); Glucose,Urine (UA) Normal (Normal); Ketones,Urine Negative (Negative); Leukocyte Esterase,Urine Trace (Negative); Nitrite,Urine Negative (Negative); PH,Urine 5.5 pH Units (5.0-8.0); Potassium,Urine 65.6 mEq/L; Protein,Urine Trace mg/dL (Neg-Trace); Sodium, Urine 10.7 mEq/L; Specific Gravity,Urine > 1.030 (1.010-1.025); Urobilinogen,Urine Normal (Normal)
[2019-02-19 11:24] LABS: Bacteria,Urine None Seen per hpf (None-Few); Hyaline Casts,Urine Few per lpf (None-Few); Squamous Epithelial Cell,Urine Many per lpf (None-Few)
[2019-02-19 11:46] LABS: RBC,Urine 0-3 per hpf (0-3)
[2019-02-19] MEDS ORDERED: Albuterol 2.5 MG/3 ML NEBULIZER IH PRN (12:00)
[2019-02-19] MEDS: Sodium Bicarbonate 75 MEQ in 0.45 % Sodium Chloride 1,000 ML IVC SCH (12:47)
[2019-02-19 16:12] LABS: Potassium 4.9 mEq/L (3.5-5.1)
[2019-02-19 18:05] LABS: ABG Base Excess -8 mEq/L (-2 to 3); ABG HCO3 18 mEq/L (21-27); ABG Oxygen Saturation 86 % (95-98); ABG PCO2 41 mmHg (35-45); ABG PH 7.26 pH Units (7.32-7.45); ABG PO2 59 mmHg (85-104); ABG TCO2 20 mEq/L (20-26)
[2019-02-19 19:10] LABS: Albumin 3.6 g/dL (3.5-5.7); Albumin/Globulin Ratio 1.5 (1.1-2.2); Bilirubin,Total 1.9 mg/dL (0.3-1.0); Calcium 8.9 mg/dL (8.6-10.3); Globulin 2.4 g/dL (2.4-3.5); Potassium 4.7 mEq/L (3.5-5.1)
[2019-02-19] MEDS: Famotidine 20 MG TABLET PO SCH (19:49)
[2019-02-19] MEDS ORDERED: *HR* LORazepam 0.5 MG TABLET PO SCH (21:00)
[2019-02-20] MEDS ORDERED: 0.9 % Sodium Chloride 500 ML ONE (00:36)
[2019-02-20 04:00] LABS: ABG Base Excess -8 mEq/L (-2 to 3); ABG HCO3 18 mEq/L (21-27); ABG Oxygen Saturation 95 % (95-98); ABG PCO2 36 mmHg (35-45); ABG PO2 82 mmHg (85-104); ABG TCO2 19 mEq/L (20-26)
[2019-02-20] MEDS: Ondansetron 4 MG/2 ML VIAL IVP PRN (05:55)
[2019-02-20] MEDS ORDERED: 0.9 % Sodium Chloride 1,000 ML IVC ONE (06:20)
[2019-02-20 06:58] LABS: Red Cell Distribution Width 14.4 % (11.5-14.5)
[2019-02-20 06:59] LABS: Hematocrit 35.9 % (35.3-44.9); Hemoglobin 12.6 g/dL (11.5-15.4); Immature Platelets 2.1 % (1.1-6.1); Mean Corpuscular HGB Conc 35.1 g/dL (31.6-35.5); Mean Corpuscular Volume 111.1 fL (83.0-100.0); Mean Platelet Volume 9.5 fL (9.4-12.4); Red Blood Count 3.23 M/mcL (3.82-4.97); White Blood Count 8.7 K/mcL (4.3-11.1)
[2019-02-20 07:18] LABS: Calcium 8.8 mg/dL (8.6-10.3); Potassium 4.7 mEq/L (3.5-5.1)
[2019-02-20] MEDS ORDERED: Albumin Human 5% 25.0 GM/500 ML VIAL ONE (07:59)
[2019-02-20] MEDS: Famotidine 20 MG TABLET PO SCH (08:19)
[2019-02-20] MEDS: SODIUM ZIRCONIUM CYCLOSILICATE 5 GM POWD.PACK PO SCH (08:21)
[2019-02-20] MEDS ORDERED: Cefepime HCl 500 MG in D5% in Water 100 ML IVPB SCH (09:00)
[2019-02-20] MEDS ORDERED: Lactulose Oral Soln 20 GM/30 ML UDC PO SCH (09:00)
[2019-02-20] MEDS: Norepinephrine 4 MG in 0.9 % Sodium Chloride 250 ML IVC SCH ×2 (10:32→16:52)
[2019-02-20] MEDS: Sodium Bicarbonate 75 MEQ in 0.45 % Sodium Chloride 1,000 ML IVC SCH (10:45)
[2019-02-20 11:44] LABS: INR 1.3; Prothrombin Time 14.5 Seconds (9.4-12.1)
[2019-02-20 12:31] LABS: Albumin 3.7 g/dL (3.5-5.7); Albumin/Globulin Ratio 1.6 (1.1-2.2); Bilirubin,Direct 0.6 mg/dL (0.0-0.2); Bilirubin,Indirect 1.1 mg/dL (0.0-1.0); Bilirubin,Total 1.7 mg/dL (0.3-1.0); Globulin 2.3 g/dL (2.4-3.5)
[2019-02-20 13:30] LABS: Troponin I 0.26 ng/mL (< 0.04)
[2019-02-20] MEDS ORDERED: Albumin 25% 25gram/100mL 25 GM/100 ML IV.SOLN IVPB SCH (16:00)
[2019-02-20 16:45] VITALS: BP 111/61
== END 2019-02-20 17:18 | disposition short-term general hospital (02) | DRG 405 ==
LOC: INTRAD 07:07 → ICNU 11:35
PROVIDERS: ADMIT Internal Medicine Pulmonary Disease; ATTEND Internal Medicine Pulmonary Disease

== ENCOUNTER 2019-03-02 09:44 | Observation (INO) ==
[2019-03-02] MEDS ORDERED: 0.9 % Sodium Chloride 1,000 ML IVC ONE (09:50)
[2019-03-02] MEDS ORDERED: cefTRIAXone 1,000 MG in Water for inj. (sterile) 10 ML IVP ONE (09:50)
[2019-03-02] MEDS ORDERED: Octreotide 50 MCG/ML INJ IVP ONE (09:50)
[2019-03-02] MEDS: Pantoprazole 40 MG VIAL IVP ONE ×2 (10:45→11:01)
[2019-03-02 10:51] LABS: Eosinophils % 4.8 %; Hematocrit 30.3 % (35.3-44.9); Mean Corpuscular Volume 112.6 fL (83.0-100.0); Red Blood Count 2.69 M/mcL (3.82-4.97); Red Cell Distribution Width 16.1 % (11.5-14.5)
[2019-03-02 10:53] LABS: Hemoglobin 10.1 g/dL (11.5-15.4); Immature Granulocytes % 0.8 % (0-4); Immature Platelets 1.1 % (1.1-6.1); Lymphocytes % 11.6 %; Mean Corpuscular HGB Conc 33.3 g/dL (31.6-35.5); Mean Corpuscular Hemoglobin 37.5 pg (28.0-33.3); Mean Platelet Volume 9.3 fL (9.4-12.4); Monocytes % 9.6 %; Segmented Neutrophils % 72.7 %; White Blood Count 8.5 K/mcL (4.3-11.1)
[2019-03-02 10:54] LABS: Basophils % 0.5 %; Eosinophils # 0.4 K/mcL (0.0-0.6); INR 1.3; Monocytes # 0.8 K/mcL (0.0-1.3); Neutrophils # 6.2 K/mcL (1.6-8.9); Nucleated Red Blood Cells 0.2 /100 WBC (0); Prothrombin Time 14.3 Seconds (9.4-12.1)
[2019-03-02 10:57] LABS: Activated Partial Thrombo Time 32.4 Seconds (26.0-36.0); Platelet Count 80 K/mcL (140-400)
[2019-03-02] MEDS: Pantoprazole 40 MG in 0.9 % Sodium Chloride Mini Bag 100 ML IVC SCH ×3 (11:04→22:20)
[2019-03-02 11:10] LABS: Calcium 9.1 mg/dL (8.6-10.3); Potassium 3.8 mEq/L (3.5-5.1)
[2019-03-02 11:13] LABS: Troponin I 0.05 ng/mL (< 0.04)
[2019-03-02 11:26] LABS: Anisocytosis 1+ (Not Present); Macrocytosis Present (Not Present); Platelet Estimate Slight Decrease (Normal)
[2019-03-02] MEDS: Octreotide 400 MCG in 0.9 % Sodium Chloride 100 ML IVC SCH (11:45)
[2019-03-02 13:27] LABS: Hematocrit 26.8 % (35.3-44.9)
[2019-03-02] MEDS ORDERED: 0.9 % Sodium Chloride 250 ML ONE ×2 (13:38→17:37)
[2019-03-02] MEDS ORDERED: Albumin 25% 25gram/100mL 25 GM/100 ML IV.SOLN IVPB ONE (15:00)
[2019-03-02 15:01] LABS: Albumin 3.1 g/dL (3.5-5.7); Albumin/Globulin Ratio 1.7 (1.1-2.2); Bilirubin,Direct 1.4 mg/dL (0.0-0.2); Bilirubin,Total 2.4 mg/dL (0.3-1.0); Globulin 1.8 g/dL (2.4-3.5); Total Protein 4.9 g/dL (6.4-8.9)
[2019-03-02] MEDS ORDERED: Naloxone 0.4 MG/ML INJ IVP PRN (18:19)
[2019-03-02] MEDS ORDERED: Ondansetron 4 MG/2 ML VIAL IVP PRN (18:19)
[2019-03-02] MEDS ORDERED: Albuterol 2.5 MG/3 ML NEBULIZER AER PRN ×2 (18:25→22:03)
[2019-03-02] MEDS ORDERED: Famotidine 20 MG TABLET PO SCH (21:00)
[2019-03-02] MEDS ORDERED: *HR* LORazepam 0.5 MG TABLET PO SCH (21:00)
[2019-03-02] MEDS: Loratadine 10 MG TABLET PO SCH (22:20)
[2019-03-03] MEDS ORDERED: Acetaminophen IV 500 MG/50 ML INFUS..BTL IVPB ONE (00:31)
[2019-03-03] MEDS ORDERED: Bumetanide 1 MG/4 ML VIAL IVP ONE (01:31)
[2019-03-03] MEDS: Octreotide 400 MCG in 0.9 % Sodium Chloride 100 ML IVC SCH (03:20)
[2019-03-03] MEDS: Pantoprazole 40 MG in 0.9 % Sodium Chloride Mini Bag 100 ML IVC SCH ×2 (03:32→07:43)
[2019-03-03 04:59] LABS: Basophils # 0.1 K/mcL (0.0-0.2); Basophils % 0.6 %; Eosinophils # 0.1 K/mcL (0.0-0.6); Eosinophils % 0.7 %; Hematocrit 39.1 % (35.3-44.9); Immature Granulocytes % 0.4 % (0-4); Lymphocytes # 0.7 K/mcL (0.6-4.6); Lymphocytes % 7.3 %; Mean Corpuscular HGB Conc 32.7 g/dL (31.6-35.5); Mean Corpuscular Hemoglobin 34.1 pg (28.0-33.3); Mean Platelet Volume 8.8 fL (9.4-12.4); Monocytes # 0.7 K/mcL (0.0-1.3); Monocytes % 6.9 %; Neutrophils # 8.1 K/mcL (1.6-8.9); Red Blood Count 3.75 M/mcL (3.82-4.97); Red Cell Distribution Width 20.2 % (11.5-14.5); Segmented Neutrophils % 84.1 %; White Blood Count 9.6 K/mcL (4.3-11.1)
[2019-03-03 04:59] LABS: INR 1.3; Prothrombin Time 14.4 Seconds (9.4-12.1)
[2019-03-03 05:00] LABS: Hemoglobin 12.8 g/dL (11.5-15.4); Mean Corpuscular Volume 104.3 fL (83.0-100.0); Platelet Count 53 K/mcL (140-400)
[2019-03-03 05:05] LABS: Calcium 9.7 mg/dL (8.6-10.3); Potassium 4.3 mEq/L (3.5-5.1)
[2019-03-03] MEDS ORDERED: *HR* LORazepam 0.5 MG TABLET PO PRN (07:18)
[2019-03-03] MEDS: Famotidine 20 MG TABLET PO SCH ×2 (07:43→17:57)
[2019-03-03] MEDS: Cholecalciferol (D-3) 1,000 UNIT (25MCG) TABLET PO SCH (07:43)
[2019-03-03] MEDS: Multivit/Ca/Min/Fe/FA 1 TAB TABLET PO SCH (07:43)
[2019-03-03] MEDS: *HR* OxyCODONE Immed Rel 5 MG TABLET PO PRN (12:01)
[2019-03-03] MEDS: Nystatin POWDER 30 GM BOTTLE TP SCH ×2 (14:02→21:31)
[2019-03-03] MEDS: Loratadine 10 MG TABLET PO SCH (21:30)
[2019-03-04] MEDS: *HR* OxyCODONE Immed Rel 5 MG TABLET PO PRN ×2 (06:59→13:42)
[2019-03-04 07:45] VITALS: BP 93/58
[2019-03-04] MEDS: Cholecalciferol (D-3) 1,000 UNIT (25MCG) TABLET PO SCH (09:56)
[2019-03-04] MEDS: Multivit/Ca/Min/Fe/FA 1 TAB TABLET PO SCH (09:57)
[2019-03-04] MEDS: Famotidine 20 MG TABLET PO SCH (09:57)
[2019-03-04] MEDS: Nystatin POWDER 30 GM BOTTLE TP SCH (09:57)
== END 2019-03-04 13:53 | disposition hospice, home (50) ==
LOC: 2NNU 09:44 → EMEROOARM 09:44 → SUATTDRO 16:21 → 2ANU 18:08
PROVIDERS: ADMIT Internal Medicine; ATTEND Internal Medicine